=== PATIENT | female | born 1940 | race Caucasian/White ===

== ENCOUNTER → 2017-08-07 | Outpatient (CLI) | payer MEDICARE ==
[2017-08-07 14:36] LABS: Anisocytosis Moderate; Basophils # (A) 0.1 k/uL (0-0.2); Basophils % (A) 0 %; Eosinophils # (A) 0.1 k/uL (0-0.7); Eosinophils % (A) 1 %; HCT 35.1 % (34.0-46.0); HGB 10.3 gm/dL (11.4-16.0); Hypochromasia Marked; Lymphocytes # (A) 2.6 k/uL (1.0-4.8); Lymphocytes % (A) 22 %; MCH 22.2 pg (25.0-35.0); MCHC 29.4 g/dL (31.0-37.0); MCV 75.4 fL (80.0-100.0); Mean Platelet Volume 6.9; Microcytosis Marked; Monocytes # (A) 0.6 k/uL (0-1.0); Monocytes % (A) 5 %; Neutrophils # (A) 8.2 k/uL (1.3-7.7); Neutrophils % (A) 69 %; Platelet Count 406 k/uL (150-450); RBC 4.66 m/uL (3.80-5.40); RDW 22.5 % (11.5-15.5); WBC 11.9 k/uL (3.8-10.6)
[2017-08-07 20:53] LABS: Iron Saturation 4.82 (12.00-45.00)
== END ==
LOC: LABWHC1 14:11
PROVIDERS: ATTEND Internal Medicine
DX: D64.9 Anemia, unspecified (principal); R79.0 Abnormal level of blood mineral
CPT/HCPCS: 36415; 82728; 83540; 83550; 85025

== ENCOUNTER 2018-09-03 15:57 | Inpatient (IN) | payer MEDICARE, OTHER ==
[2018-09-03] MEDS ORDERED: ALBUTEROL NEBULIZED 2.5 MG/3 ML INHALATION STA (16:43)
[2018-09-03] MEDS ORDERED: IPRATROPIUM 0.5 MG/2.5 ML NEBU INHALATION STA (16:43)
[2018-09-03] MEDS ORDERED: methylPREDNISolone SOD SUCCI 125 MG/2 ML VIAL IV STA (16:43)
--- NOTE | 2018-09-03 16:45 | ED ---
General Adult HPI - General Stated complaint: [id number] Time Seen by Provider: 09/03/18 16:39 Source: patient, family, RN notes reviewed, old records reviewed - History of Present Illness Initial comments: 78-year-old female presenting with cough and dyspnea. Patient has history of COPD, she quit smoking 2 days ago. She is presenting with 1 week of worsening cough and dyspnea. She has been prescribed home oxygen but has not received her supple no oxygen yet. Denies central chest pain. She is had subjective fever and chills. Denies history of congestive heart failure. She does report bilateral lower extremity edema which is somewhat improved without specific treatment. Cough productive of white to yellow sputum - Related Data Home Medications Medication Instructions Recorded Confirmed Levothyroxine Sodium [Synthroid] 112 mcg PO DAILY 10/26/15 09/03/18 Omeprazole 20 mg PO DAILY 10/26/15 09/03/18 Simvastatin [Zocor] 20 mg PO HS 10/26/15 09/03/18 Albuterol Sulfate [Proair Hfa] 2 puff INHALATION RT-QID PRN 09/03/18 09/03/18 DULoxetine HCL [Cymbalta] 60 mg PO DAILY 09/03/18 09/03/18 Diltiazem HCl [Diltiazem ER] 120 mg PO DAILY 09/03/18 09/03/18 Furosemide [Lasix] 20 mg PO DAILY 09/03/18 09/03/18 INSULIN ASPART (NovoLOG) [NovoLOG 6 unit SQ AC-TID 09/03/18 09/03/18 (formulary)] Insulin Degludec [Tresiba] 38 units SQ QAM 09/03/18 09/03/18 Insulin Degludec [Tresiba] See Protocol SQ HS 09/03/18 09/03/18 Ipratropium-Albuterol Nebulize 3 ml INHALATION RT-QID PRN 09/03/18 09/03/18 [Duoneb 0.5 mg-3 mg/3 ml Soln] Pregabalin [Lyrica] 100 mg PO BID 09/03/18 09/03/18 Allergies Allergy/AdvReac Type Severity Reaction Status Date / Time No Known Allergies Allergy Verified 09/03/18 17:09 Review of Systems ROS Statement: Those systems with pertinent positive or pertinent negative responses have been documented in the HPI. ROS Other: All systems not noted in ROS Statement are negative. Past Medical History Past Medical History: Diabetes Mellitus, GERD/Reflux, Hyperlipidemia, Hypertension, Skin Disorder, Thyroid Disorder Additional Past Medical History / Comment(s): migraines, diarrhea, arthritis, itchy sores on back, History of Any Multi-Drug Resistant Organisms: None Reported Past Surgical History: Cholecystectomy, Joint Replacement, Tonsillectomy, Tubal Ligation Additional Past Surgical History / Comment(s): nik knee replacement, nik cataracts Past Anesthesia/Blood Transfusion Reactions: Motion Sickness Additional Past Anesthesia/Blood Transfusion Reaction / Comment(s): hard time waking up and SOB when waking up Smoking Status: Current every day smoker - Past Family History Mother Family Medical History: No Reported History General Exam General appearance: alert, in no apparent distress Head exam: Present: atraumatic, normocephalic Eye exam: Present: normal appearance, PERRL ENT exam: Present: mucous membranes dry Neck exam: Present: normal inspection. Absent: tenderness, meningismus Respiratory exam: Present: respiratory distress, wheezes, decreased breath sounds, prolonged expiratory Cardiovascular Exam: Present: regular rate, normal rhythm GI/Abdominal exam: Present: soft. Absent: distended, tenderness, guarding Extremities exam: Present: normal capillary refill, pedal edema Neurological exam: Present: alert, oriented X3, CN II-XII intact. Absent: motor sensory deficit Psychiatric exam: Present: normal affect, normal mood Skin exam: Present: warm, dry, intact. Absent: cyanosis, diaphoretic Course Vital Signs 09/03/18 09/03/18 09/03/18 16:30 16:52 17:07 Temperature 99.2 F Pulse Rate 94 89 92 Respiratory 22 Rate Blood Pressure 133/64 O2 Sat by Pulse 97 Oximetry 09/03/18 09/03/18 09/03/18 17:10 17:50 18:00 Temperature Pulse Rate 96 101 H 105 H Respiratory 22 24 10 L Rate Blood Pressure 130/64 132/80 132/80 O2 Sat by Pulse 96 95 95 Oximetry 09/03/18 09/03/18 09/03/18 18:10 18:20 18:30 Temperature Pulse Rate 101 H 101 H 98 Respiratory 7 L 6 L 25 H Rate Blood Pressure 151/68 151/68 132/67 O2 Sat by Pulse 96 93 L 93 L Oximetry 09/03/18 18:35 Temperature Pulse Rate 102 H Respiratory 22 Rate Blood Pressure 132/67 O2 Sat by Pulse 94 L Oximetry EKG Findings - EKG Comments: EKG Findings:: EKG: Normal sinus rhythm, rate of 92, PA interval 146, QRS duration 84, QTC 447, no ST segment elevation. Medical Decision Making - Medical Decision Making 78-year-old female presenting with worsening cough and dyspnea, history of COPD. No chest pain. Patient recently prescribed home oxygen but has not received her oxygen today. She has cough and subjective fever chills. Chest x-ray is concerning for pulmonary edema versus atypical pneumonia. Given the elevated white count of 21,000. She is started on antibiotics. She has normal CMP, neg ative troponin, negative BNP. After initial treatment available medical management status, she has minimal improvement. Will be admitted for treatment of COPD exacerbation. Case discussed with the admitting physician Dr. Bermudez, will place pulmonology on consult. - Lab Data Result diagrams: 09/03/18 17:30 09/03/18 17:30 Lab Results 09/03/18 09/03/18 09/03/18 Range/Units 17:30 17:30 17:30 WBC 21.2 H (3.8-10.6) k/uL RBC 4.71 (3.80-5.40) m/uL Hgb 12.1 (11.4-16.0) gm/dL Hct 38.3 (34.0-46.0) % MCV 81.3 (80.0-100.0) fL MCH 25.7 (25.0-35.0) pg MCHC 31.6 (31.0-37.0) g/dL RDW 13.7 (11.5-15.5) % Plt Count 399 (150-450) k/uL Neutrophils % 78 % Lymphocytes % 15 % Monocytes % 5 % Eosinophils % 0 % Basophils % 0 % Neutrophils # 16.5 H (1.3-7.7) k/uL Lymphocytes # 3.1 (1.0-4.8) k/uL Monocytes # 1.1 H (0-1.0) k/uL Eosinophils # 0.1 (0-0.7) k/uL Basophils # 0.0 (0-0.2) k/uL PT (9.0-12.0) sec INR (<1.2) APTT (22.0-30.0) sec Sodium 137 (137-145) mmol/L Potassium 4.2 (3.5-5.1) mmol/L Chloride 101 (98-107) mmol/L Carbon Dioxide 30 (22-30) mmol/L Anion Gap 6 mmol/L BUN 5 L (7-17) mg/dL Creatinine 0.34 L (0.52-1.04) mg/dL Est GFR (CKD-EPI)AfAm >90 (>60 ml/min/1.73 sqM) Est GFR (CKD-EPI)NonAf >90 (>60 ml/min/1.73 sqM) Glucose 118 H (74-99) mg/dL Calcium 9.7 (8.4-10.2) mg/dL Magnesium 1.9 (1.6-2.3) mg/dL Total Bilirubin 1.0 (0.2-1.3) mg/dL AST 16 (14-36) U/L ALT 9 (9-52) U/L Alkaline Phosphatase 114 (38-126) U/L Troponin I (0.000-0.034) ng/mL NT-Pro-B Natriuret Pep 212 pg/mL Total Protein 6.9 (6.3-8.2) g/dL Albumin 3.8 (3.5-5.0) g/dL 09/03/18 09/03/18 Range/Units 17:30 17:30 WBC (3.8-10.6) k/uL RBC (3.80-5.40) m/uL Hgb (11.4-16.0) gm/dL Hct (34.0-46.0) % MCV (80.0-100.0) fL MCH (25.0-35.0) pg MCHC (31.0-37.0) g/dL RDW (11.5-15.5) % Plt Count (150-450) k/uL Neutrophils % % Lymphocytes % % Monocytes % % Eosinophils % % Basophils % % Neutrophils # (1.3-7.7) k/uL Lymphocytes # (1.0-4.8) k/uL Monocytes # (0-1.0) k/uL Eosinophils # (0-0.7) k/uL Basophils # (0-0.2) k/uL PT 10.6 (9.0-12.0) sec INR 1.0 (<1.2) APTT 22.0 (22.0-30.0) sec Sodium (137-145) mmol/L Potassium (3.5-5.1) mmol/L Chloride (98-107) mmol/L Carbon Dioxide (22-30) mmol/L Anion Gap mmol/L BUN (7-17) mg/dL Creatinine (0.52-1.04) mg/dL Est GFR (CKD-EPI)AfAm (>60 ml/min/1.73 sqM) Est GFR (CKD-EPI)NonAf (>60 ml/min/1.73 sqM) Glucose (74-99) mg/dL Calcium (8.4-10.2) mg/dL Magnesium (1.6-2.3) mg/dL Total Bilirubin (0.2-1.3) mg/dL AST (14-36) U/L ALT (9-52) U/L Alkaline Phosphatase (38-126) U/L Troponin I <0.012 (0.000-0.034) ng/mL NT-Pro-B Natriuret Pep pg/mL Total Protein (6.3-8.2) g/dL Albumin (3.5-5.0) g/dL Disposition Clinical Impression: Acute exacerbation of chronic obstructive airways disease Disposition: ADMITTED IP TO THIS HOSP Condition: Stable Is patient prescribed a controlled substance at d/c from ED?: No Referrals: Kai Chen DO [Primary Care Provider] - 1-2 days Decision to Admit Reason: Admit from EC Decision Date: 09/03/18 Decision Time: 19:19
[2018-09-03 17:48] LABS: Basophils % (A) 0 %; Eosinophils # (A) 0.1 k/uL (0-0.7); Eosinophils % (A) 0 %; HCT 38.3 % (34.0-46.0); HGB 12.1 gm/dL (11.4-16.0); Lymphocytes # (A) 3.1 k/uL (1.0-4.8); Lymphocytes % (A) 15 %; MCH 25.7 pg (25.0-35.0); MCHC 31.6 g/dL (31.0-37.0); MCV 81.3 fL (80.0-100.0); Mean Platelet Volume 7.2; Monocytes # (A) 1.1 k/uL (0-1.0); Monocytes % (A) 5 %; Neutrophils # (A) 16.5 k/uL (1.3-7.7); Neutrophils % (A) 78 %; Platelet Count 399 k/uL (150-450); RBC 4.71 m/uL (3.80-5.40); RDW 13.7 % (11.5-15.5); WBC 21.2 k/uL (3.8-10.6)
[2018-09-03 17:57] LABS: ALT 9 U/L (9-52); AST 16 U/L (14-36); African American GFR (CKD) >90 (>60 ml/min/1.73 sqM); Albumin 3.8 g/dL (3.5-5.0); Alkaline Phosphatase 114 U/L (38-126); Anion Gap 6 mmol/L; Blood Urea Nitrogen 5 mg/dL (7-17); Calcium 9.7 mg/dL (8.4-10.2); Carbon Dioxide 30 mmol/L (22-30); Chloride 101 mmol/L (98-107); Glucose 118 mg/dL (74-99); Magnesium 1.9 mg/dL (1.6-2.3); Potassium 4.2 mmol/L (3.5-5.1); Sodium 137 mmol/L (137-145); Total Protein 6.9 g/dL (6.3-8.2)
[2018-09-03 18:01] LABS: Prothrombin Time 10.6 sec (9.0-12.0)
--- NOTE | 2018-09-03 18:24 | XR ---
EXAMINATION: XR chest 2V DATE AND TIME: 09/03/2018 5:57 PM CLINICAL INDICATION: PHH; difficulty breathing TECHNIQUE: Departmental protocol COMPARISON: None FINDINGS: The lungs show a mild silhouetting of the pulmonary vasculature symmetrically by a fine reticular pat tern of increased density. No focal pulmonary findings. The pleural spaces are negative. The cardiac silhouette is moderately enlarged. The remainder of the mediastinal silhouette is unremar kable. The skeletal structures and soft tissues are negative for acute findings. IMPRESSION: Mild interstitial phase cardiogenic pulmonary edema radiographic pattern.
[2018-09-03] MEDS ORDERED: cefTRIAXone IN SWFI 1,000 MG/10 ML SYRINGE IVP STA (19:12)
[2018-09-03] MEDS ORDERED: AZITHROMYCIN 500 MG in SODIUM CHLORIDE 0.9% 250 ML IVPB STA (19:12)
[2018-09-03] MEDS ORDERED: IPRATROPIUM-ALBUTEROL 3 ML NEB INHALATION PRN (19:15)
[2018-09-03] MEDS: IPRATROPIUM-ALBUTEROL 3 ML NEB INHALATION SCH (20:04)
[2018-09-04] MEDS ORDERED: INSULIN ASPART (NovoLOG) 100 UNIT/ML VIAL SQ ONE (00:25)
--- NOTE | 2018-09-04 00:38 | P.HPIM ---
History of Present Illness H&P Date: 09/03/18 Chief Complaint: Shortness of breath, coughing 78-year-old female with history of COPD, diabetes, hypertension Patient presents to the hospital with 2 day history of worsening shortness of breath even at rest associated with wheezing and productive cough of yellowish sputum. With subjective fevers and chills. 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 She also reports some runny nose but denies any sore throat or muscle aches. She has albuterol inhaler and nebulizer that she was not getting much benefit from using them these past 2 days for which she decided to come the hospital for further care she denies any associated chest pain. She denies any recent hospitalization for COPD. She denies any history of intubation for COPD. She denies being on any steroids. Patient otherwise denies any nausea vomiting dizziness lightheadedness focal neuro deficits abdominal pain changes in her bowel or urinary habits denies any GI bleeding. Patient denies any orthopnea or paroxysmal nocturnal dyspnea. She reports some occasional leg swelling for which she takes when necessary Lasix In the ED chest x-ray showed some mild increased vasculature along with obliteration of the left cardiac and diaphragm silhouette but otherwise reports read is nonfocal. She had elevated white count, tachycardia but no fevers. Patient received breathing treatments in the ED without much improvement, patient was admitted for further treatment of COPD exacerbation with possible underlying pneumonia. Patient lives with her grandson daughter, she does not drive, she ambulates freely without any assistive device. Review of Systems Pertinent positives as noted in HPI. All other systems were reviewed and are negative Past Medical History Past Medical History: Diabetes Mellitus, GERD/Reflux, Hyperlipidemia, Hypertension, Skin Disorder, Thyroid Disorder Additional Past Medical History / Comment(s): migraines, arthritis, itchy sores on back, History of Any Multi-Drug Resistant Organisms: None Reported Past Surgical History: Cholecystectomy, Joint Replacement, Tonsillectomy, Tubal Ligation Additional Past Surgical History / Comment(s): nik knee replacement, nik cataracts Past Anesthesia/Blood Transfusion Reactions: Motion Sickness Additional Past Anesthesia/Blood Transfusion Reaction / Comment(s): hard time waking up and SOB when waking up Smoking Status: Current every day smoker - Past Family History Mother Family Medical History: No Reported History Medications and Allergies Home Medications Medication Instructions Recorded Confirmed Type Levothyroxine Sodium [Synthroid] 112 mcg PO DAILY 10/26/15 09/03/18 History Omeprazole 20 mg PO DAILY 10/26/15 09/03/18 History Simvastatin [Zocor] 20 mg PO HS 10/26/15 09/03/18 History Albuterol Sulfate [Proair Hfa] 2 puff INHALATION RT-QID PRN 09/03/18 09/03/18 History DULoxetine HCL [Cymbalta] 60 mg PO DAILY 09/03/18 09/03/18 History Diltiazem HCl [Diltiazem ER] 120 mg PO DAILY 09/03/18 09/03/18 History Furosemide [Lasix] 20 mg PO DAILY 09/03/18 09/03/18 History INSULIN ASPART (NovoLOG) [NovoLOG 6 unit SQ AC-TID 09/03/18 09/03/18 History (formulary)] Insulin Degludec [Tresiba] 38 units SQ QAM 09/03/18 09/03/18 History Insulin Degludec [Tresiba] See Protocol SQ HS 09/03/18 09/03/18 History Ipratropium-Albuterol Nebulize 3 ml INHALATION RT-QID PRN 09/03/18 09/03/18 History [Duoneb 0.5 mg-3 mg/3 ml Soln] Pregabalin [Lyrica] 100 mg PO BID 09/03/18 09/03/18 History Allergies Allergy/AdvReac Type Severity Reaction Status Date / Time No Known Allergies Allergy Verified 09/03/18 17:09 Physical Exam Vitals: Vital Signs Temp Pulse Resp BP Pulse Ox 09/03/18 20:16 90 L 09/03/18 20:15 100 09/03/18 20:06 98 09/03/18 20:04 99.3 F 96 20 141/82 94 L 09/03/18 18:35 102 H 22 132/67 94 L 09/03/18 18:30 98 25 H 132/67 93 L 09/03/18 18:20 101 H 6 L 151/68 93 L 09/03/18 18:10 101 H 7 L 151/68 96 09/03/18 18:00 105 H 10 L 132/80 95 09/03/18 17:50 101 H 24 132/80 95 09/03/18 17:10 96 22 130/64 96 09/03/18 17:07 92 09/03/18 16:52 89 09/03/18 16:30 99.2 F 94 22 133/64 97 Intake and Output 09/03/18 09/03/18 09/04/18 14:59 22:59 06:59 Other: Weight 99.79 kg Constitutional: No acute distress, conversant, pleasant, on oxygen through nasal cannula Eyes: Anicteric sclerae, moist conjunctiva, no lid-lag Pupils equal round reactive to light ENMT: NC/AT Oropharynx clear, no erythema, or exudates Neck: Supple, FROM, no masses, or JVD No carotid bruits No thyromegaly Lungs: Prolonged expiratory phase with diffuse expiratory wheezes, and end expiratory rhonchi Clear to percussion Normal respiratory effort, no accessory muscle use Cardiovascular: Heart regular in rate and rhythm, No murmurs, gallops, or rubs No peripheral edema Abdominal: Soft Nontender, no guarding, rebound or rigidity Abdomen moving with respiration Normoactive bowel sounds No hepatomegaly, No splenomegaly No palpable mass No abdominal wall hernia noted Skin: Normal temperature, tone, texture, turgor No induration No subcutaneous nodules No rash, lesions No ulcers Extremities: No digital cyanosis No clubbing Pedal pulses intact and symmetrical Radial pulses intact and symmetrical No calf tenderness Psychiatric: Alert and oriented to person, place and time Appropriate affect fair judgment Neuro Muscles Strength 4/5 in all 4 extremities Sensation to light touch grossly present throughout Cranial nerves II-XII grossly intact No focal sensory deficits Lymphatics: no palpable cervical or supraclavicular , or inguinal lymph nodes Results CBC & Chem 7: 09/03/18 17:30 09/03/18 17:30 Labs: Abnormal Lab Results - Last 24 Hours (Table) 09/03/18 09/03/18 Range/Units 17:30 17:30 WBC 21.2 H (3.8-10.6) k/uL Neutrophils # 16.5 H (1.3-7.7) k/uL Monocytes # 1.1 H (0-1.0) k/uL BUN 5 L (7-17) mg/dL Creatinine 0.34 L (0.52-1.04) mg/dL Glucose 118 H (74-99) mg/dL Assessment and Plan Assessment: 78-year-old female with history of COPD, active smoking, hypothyroid, diabetes. Patient admitted as an inpatient with anticipated length of stay more than 48 hours due to acute COPD exacerbation did not respond to initial therapy in the ED, with possible underlying pneumonia Plan: Acute COPD exacerbation with possible underlying pneumonia Patient started on COPD pathway DuoNeb's Systemic IV steroids Rocephin and azithromycin Follow-up cultures Chronic conditions Hypertension continue home meds Diabetes continue with insulin Hypothyroid continue levothyroxine Peripheral neuropathy continue alert, Hyperlipidemia continue statin Tobacco smoking Patient quit 2 days ago, currently declined to replacement therapy DVT prophylaxis heparin subcu 3 times a day Surrogate decision-maker: Son and granddaughter CODE STATUS: No code Discussed with: Patient, ER, RN Anticipated discharge: 48-[address]: Home A total of 60 minutes was spent on the care of this complex patient more than 50% of the time was spent in counseling and care coordination.
[2018-09-04] MEDS: methylPREDNISolone SOD SUCCI 125 MG/2 ML VIAL IV SCH ×5 (01:15→23:14)
[2018-09-04 04:12] VITALS: BMI 40.2
[2018-09-04] MEDS: LEVOTHYROXINE 112 MCG TAB PO SCH (06:51)
[2018-09-04] MEDS: IPRATROPIUM-ALBUTEROL 3 ML NEB INHALATION SCH ×4 (07:17→19:41)
[2018-09-04 07:20] LABS: Glucose,Whole Blood 245 mg/dL (75-99)
[2018-09-04] MEDS: HEPARIN SODIUM,PORCINE 5,000 UNIT/ML 1 ML VIAL SQ SCH ×3 (08:51→23:13)
[2018-09-04] MEDS: DULoxetine HCL 60 MG CAPSULE.DR PO SCH (08:51)
[2018-09-04] MEDS: INSULIN ASPART (NovoLOG) 100 UNIT/ML VIAL SQ SCH ×4 (08:51→21:13)
[2018-09-04] MEDS: PREGABALIN 100 MG CAP PO SCH ×2 (08:52→20:03)
[2018-09-04] MEDS: PANTOPRAZOLE 40 MG TABLET PO SCH (08:52)
[2018-09-04] MEDS: AZITHROMYCIN 500 MG TAB PO SCH (08:53)
[2018-09-04] MEDS ORDERED: INSULIN DETEMIR (LEVEMIR) 100 UNIT/ML SYR SQ SCH (09:00)
[2018-09-04 10:38] LABS: Basophils % (A) 0 %; Eosinophils % (A) 0 %; HCT 40.5 % (34.0-46.0); HGB 12.3 gm/dL (11.4-16.0); Hypochromasia Slight; Lymphocytes # (A) 1.9 k/uL (1.0-4.8); Lymphocytes % (A) 12 %; MCH 25.3 pg (25.0-35.0); MCHC 30.5 g/dL (31.0-37.0); MCV 82.8 fL (80.0-100.0); Mean Platelet Volume 7.5; Monocytes # (A) 0.3 k/uL (0-1.0); Monocytes % (A) 2 %; Neutrophils # (A) 14.3 k/uL (1.3-7.7); Neutrophils % (A) 86 %; Platelet Count 442 k/uL (150-450); RBC 4.88 m/uL (3.80-5.40); RDW 13.9 % (11.5-15.5); WBC 16.7 k/uL (3.8-10.6)
[2018-09-04 10:55] LABS: ALT 14 U/L (9-52); AST 13 U/L (14-36); African American GFR (CKD) >90 (>60 ml/min/1.73 sqM); Albumin 3.6 g/dL (3.5-5.0); Alkaline Phosphatase 114 U/L (38-126); Anion Gap 9 mmol/L; Blood Urea Nitrogen 11 mg/dL (7-17); Calcium 9.8 mg/dL (8.4-10.2); Carbon Dioxide 29 mmol/L (22-30); Chloride 101 mmol/L (98-107); Glucose 299 mg/dL (74-99); Potassium 4.8 mmol/L (3.5-5.1); Sodium 139 mmol/L (137-145); Total Bilirubin 0.8 mg/dL (0.2-1.3); Total Protein 6.6 g/dL (6.3-8.2)
[2018-09-04 11:37] LABS: Glucose,Whole Blood 291 mg/dL (75-99)
[2018-09-04] MEDS: DILTIAZEM CD 120 MG CAP.ER.24H PO SCH (12:19)
--- NOTE | 2018-09-04 12:37 | P.CNPUL ---
History of Present Illness Consult date: 09/04/18 Reason for consult: dyspnea, cough, COPD Chief complaint: Shortness of breath History of present illness: This is a 78-year-old female who presented to emergency department complaining of shortness of breath and wheezing for the last few days. She states she does have a cough productive of yellow sputum. Her chest x-ray shows pulmonary edema. The patient did have a white blood cell count of 21 on admission. Her T -max is 99.3. She states she did have chills at home but no fevers. She denies any sick contacts. She states she doesn't really go anywhere or the house. She did get her pneumonia vaccine but did not get a flu vaccine. She does smoke one to one and half packs per day for 50 years. She does have a history of COPD. She states she uses pro-air 2-3 times per day as well as her nebulizer 3 times a day. She states that she lived in [place] she did follow with a lung doctor for it has not followed with a lung doctor since she moved to [place]. She used to wear oxygen at night but states since she moved from [place] she has been unable to get oxygen. She states her from mesothelioma. She used to work in a [employer] and was exposed to chemicals and does not know which ones. She does have seasonal and environmental ALLERGIES as well as sinus congestion. She has one cat and one dog in the home. Review of Systems All systems: negative Past Medical History Past Medical History: Diabetes Mellitus, GERD/Reflux, Hyperlipidemia, Hypertension, Skin Disorder, Thyroid Disorder Additional Past Medical History / Comment(s): migraines, arthritis, itchy sores on back, History of Any Multi-Drug Resistant Organisms: None Reported Past Surgical History: Cholecystectomy, Joint Replacement, Tonsillectomy, Tubal Ligation Additional Past Surgical History / Comment(s): nik knee replacement, nik cataracts Past Anesthesia/Blood Transfusion Reactions: Motion Sickness Additional Past Anesthesia/Blood Transfusion Reaction / Comment(s): hard time waking up and SOB when waking up Smoking Status: Current every day smoker - Past Family History Mother Family Medical History: No Reported History Medications and Allergies Home Medications Medication Instructions Recorded Confirmed Type Levothyroxine Sodium [Synthroid] 112 mcg PO DAILY 10/26/15 09/03/18 History Omeprazole 20 mg PO DAILY 10/26/15 09/03/18 History Simvastatin [Zocor] 20 mg PO HS 10/26/15 09/03/18 History Albuterol Sulfate [Proair Hfa] 2 puff INHALATION RT-QID PRN 09/03/18 09/03/18 History DULoxetine HCL [Cymbalta] 60 mg PO DAILY 09/03/18 09/03/18 History Diltiazem HCl [Diltiazem ER] 120 mg PO DAILY 09/03/18 09/03/18 History Furosemide [Lasix] 20 mg PO DAILY 09/03/18 09/03/18 History INSULIN ASPART (NovoLOG) [NovoLOG 6 unit SQ AC-TID 09/03/18 09/03/18 History (formulary)] Insulin Degludec [Tresiba] 38 units SQ QAM 09/03/18 09/03/18 History Insulin Degludec [Tresiba] See Protocol SQ HS 09/03/18 09/03/18 History Ipratropium-Albuterol Nebulize 3 ml INHALATION RT-QID PRN 09/03/18 09/03/18 History [Duoneb 0.5 mg-3 mg/3 ml Soln] Pregabalin [Lyrica] 100 mg PO BID 09/03/18 09/03/18 History Allergies Allergy/AdvReac Type Severity Reaction Status Date / Time No Known Allergies Allergy Verified 09/03/18 17:09 Physical Exam Osteopathic Statement: *. No significant issues noted on an osteopathic structural exam other than those noted in the History and Physical/Consult. Vitals: Vital Signs Temp Pulse Pulse Resp BP BP Pulse Ox 09/04/18 12:08 107 H 09/04/18 11:53 99 09/04/18 07:30 86 09/04/18 07:17 86 93 L 09/04/18 07:00 98 F 96 12 123/70 93 L 09/04/18 04:45 98 09/04/18 04:37 98 09/04/18 00:58 98.0 F 90 15 149/72 97 09/04/18 00:00 16 09/03/18 20:59 97.4 F L 100 22 134/74 09/03/18 20:16 90 L 09/03/18 20:15 100 09/03/18 20:06 98 09/03/18 20:04 99.3 F 96 20 141/82 94 L 09/03/18 18:35 102 H 22 132/67 94 L 09/03/18 18:30 98 25 H 132/67 93 L 09/03/18 18:20 101 H 6 L 151/68 93 L 09/03/18 18:10 101 H 7 L 151/68 96 09/03/18 18:00 105 H 10 L 132/80 95 09/03/18 17:50 101 H 24 132/80 95 09/03/18 17:10 96 22 130/64 96 09/03/18 17:07 92 09/03/18 16:52 89 09/03/18 16:30 99.2 F 94 22 133/64 97 Intake and Output 09/03/18 09/04/18 09/04/18 22:59 06:59 14:59 Other: Weight 99.79 kg Gen.: Patient is alert and oriented 3, no acute distress Cardiovascular: Regular rate and rhythm, S1/S2 Lungs: Diffuse bilateral expiratory wheezing with prolonged expiration Abdomen: Soft nontender nondistended positive bowel sounds Extremities: No edema Results - Laboratory Findings CBC and BMP: 09/04/18 09:36 09/04/18 09:36 PT/INR, D-dimer PT 10.6 sec (9.0-12.0) 09/03/18 17:30 INR 1.0 (<1.2) 09/03/18 17:30 Abnormal lab findings: Abnormal Labs 09/03/18 09/03/18 09/04/18 17:30 17:30 07:15 WBC 21.2 H MCHC Neutrophils # 16.5 H Monocytes # 1.1 H BUN 5 L Creatinine 0.34 L Glucose 118 H POC Glucose (mg/dL) 245 H AST 09/04/18 09/04/18 09/04/18 09:36 09:36 11:35 WBC 16.7 H MCHC 30.5 L Neutrophils # 14.3 H Monocytes # BUN Creatinine 0.46 L Glucose 299 H POC Glucose (mg/dL) 291 H AST 13 L - Diagnostic Findings Chest x-ray: report reviewed, image reviewed Assessment and Plan Assessment: Acute on chronic hypoxic respiratory failure Acute exacerbation of COPD Tracheobronchitis Pulmonary edema on CXR, question CHF versus atypical pna Active tobacco abuse Hypothyroidism Diabetes mellitus type 2 Hypertension Peripheral neuropathy Dyslipidemia O2 to maintain saturation greater than or equal to 90% Pulmicort and Perforomist Mick gomez Singulair Steroid taper Incentive spirometry and pulmonary hygiene Sputum culture Antibiotics:Azithromycin and Rocephin Check A1AT, HP/allergy panel CT chest to be done Nocturnal oximetry on RA Echocardiogram Consult PT Consult case management for home O2 Overnight pulse ox on RA GI and DVT prophylaxis Outpatient pulmonary function test Smoking cessation is highly recommended, patient declining nicotine replacement at this time Thank you for this consultation we'll continue to follow along
--- NOTE | 2018-09-04 15:51 | CT ---
CT CHEST FOR PULMONARY EMBOLISM. EXAMINATION TYPE: CT angio chest DATE OF EXAM: 09/04/2018 INDICATION: PE CT DLP: 308.1 mGycm, Automated exposure control for dose reduction was used. CONTRAST: Patient injected with 100 mL of Isovue 370. COMPARISON: None TECHNIQUE: CT of the chest is performed on a spiral scan at 2 mm thick sections. Study is performed with intravenous contrast timed for evaluation for pulmonary embolism. This will limit additional po rtions of the evaluation. 3-D MIP images reconstructed by the technologist are reviewed on the compu ter in the coronal and sagittal planes. FINDINGS: No persistent filling defects are evident to suggest an acute pulmonary embolism. No mediastinal or hilar adenopathy enlarged by CT criteria is evident. The ascending aorta diameter at the level of the main pulmonary artery is 3.3 cm. The main pulmonary artery diameter at the bifur cation is 2.1 cm. Some minimal opacities at the posterior lateral right lung base may be some atelectasis. Limited CT section through the upper abdomen are unremarkable. IMPRESSIONS: 1. No acute pulmonary embolism.
[2018-09-04 17:16] LABS: Glucose,Whole Blood 267 mg/dL (75-99)
[2018-09-04 19:10] LABS: Immunoglobulin E 7.13 IU/mL (0.00-114.00)
[2018-09-04] MEDS: FORMOTEROL FUMARATE 20 MCG/2 ML NEBU INHALATION SCH (19:42)
[2018-09-04] MEDS: BUDESONIDE 0.5 MG/2 ML NEBU INHALATION SCH (19:42)
[2018-09-04] MEDS: guaiFENesin 600 MG TABLET.ER PO SCH (20:03)
[2018-09-04 20:14] LABS: Glucose,Whole Blood 292 mg/dL (75-99)
--- NOTE | 2018-09-04 20:23 | P.PN ---
Subjective Progress Note Date: 09/04/18 (delayed charting seen at 1400) Principal diagnosis: shortness of breath Patient is a 78-year-old female with a past medical history of COPD, diabetes, hypertension, dyslipidemia, and tobacco abuse who presented to the ER with complaints of cough and sputum. In the ER she underwent an extensive evaluation. On arrival her vital signs are found within normal limits. Laboratory analysis revealed an elevated white blood cell count at 21.2, but was otherwise unremarkable. Chest x-ray showed mild interstitial phase pulmonary edema. Patient had been using her inhalers at home without much relief. She was given steroids and bronchodilators, and antibiotics in the ER. She was admitted for further monitoring. Pulmonary was consulted who recommended CT of the chest, alpha-1 antitrypsin level, as well and hypersensitivity/ALLERGY panel. She was continued on Rocephin and Zithromax. Patient seen and examined at bedside. She reports her breathing is somewhat b alvarado than yesterday. Still continues to have productive cough. Still wheezing. States she does not need nicotine replacement and she is determined to quit. Denies any nausea, vomiting, or diarrhea. States she has not seen a mixer slagman here, but was seen one in [place]. Objective - Vital Signs Vital signs: Vital Signs Temp 98 F 09/04/18 15:00 Pulse 108 H 09/04/18 19:59 Resp 12 09/04/18 16:00 BP 138/73 09/04/18 15:00 Pulse Ox 98 09/04/18 15:00 Intake & Output 09/04/18 09/04/18 09/05/18 06:59 18:59 06:59 Weight 99.79 kg Other: # Voids 2 - Exam General: non toxic, no distress, appears at stated age, obese Derm: warm, dry Head: atraumatic, normocephalic, symmetric Eyes: EOMI, no lid lag, anicteric sclera Mouth: no lip lesion, mucus membranes moist Cardiovascular: S1S2 reg, no murmur, positive posterior tibial pulse bilateral, Lungs: Diffuse rhonchi bilaterally, no accessory muscle use Abdominal: soft, nontender to palpation, no guarding, no appreciable organomegaly Ext: no gross muscle atrophy, no edema, no contractures Neuro: CN II-XI grossly intact, no focal neuro deficits Psych: Alert, oriented, appropriate affect - Labs CBC & Chem 7: 09/04/18 09:36 09/04/18 09:36 Labs: Abnormal Lab Results - Last 24 Hours (Table) 09/04/18 09/04/18 09/04/18 Range/Units 07:15 09:36 09:36 WBC 16.7 H (3.8-10.6) k/uL MCHC 30.5 L (31.0-37.0) g/dL Neutrophils # 14.3 H (1.3-7.7) k/uL Creatinine 0.46 L (0.52-1.04) mg/dL Glucose 299 H (74-99) mg/dL POC Glucose (mg/dL) 245 H (75-99) mg/dL AST 13 L (14-36) U/L 09/04/18 09/04/18 Range/Units 11:35 17:15 WBC (3.8-10.6) k/uL MCHC (31.0-37.0) g/dL Neutrophils # (1.3-7.7) k/uL Creatinine (0.52-1.04) mg/dL Glucose (74-99) mg/dL POC Glucose (mg/dL) 291 H 267 H (75-99) mg/dL AST (14-36) U/L Microbiology - Last 24 Hours (Table) 09/03/18 17:35 Blood Culture - Preliminary Blood No Growth after 24 hours Assessment and Plan Assessment: Acute exacerbation of COPD with pneumonia -IV steroids, budesonid, fometerol - duonebs - pulm hygeine - Rocephin, zithromax - Pulm recs - Sputum culture -Mucinex DM 2, insulin requiring with hyperglycemia with peripheral neuropathy - SSI and fixed dose, basal increased to 42 units - follow BS - Await A1C -Lyrica Hypertension -controlled -Continue Cardizem Hypothyroidism -Continue levothyroxine Dyslipidemia -Statin Tobacco abuse -Quit smoking 3 days ago -Does not want nicotine replacement Morbid obesity with BMI 40.2 -Outpatient structured weight loss DVT prophylaxis: Heparin Discussed with: Patient Anticipated discharge: 24-[address]: home A total of 25 minutes was spent on the care of this complex patient more than 50% of the time was spent in counseling and care coordination.
[2018-09-04] MEDS ORDERED: MONTELUKAST 10 MG TAB PO SCH (21:00)
[2018-09-04] MEDS ORDERED: ATORVASTATIN 10 MG TAB PO SCH (21:00)
[2018-09-04 21:46] VITALS: RESP 14
[2018-09-04 22:33] LABS: Glucose,Whole Blood 277 mg/dL (75-99)
[2018-09-05] MEDS: LEVOTHYROXINE 112 MCG TAB PO SCH (05:42)
[2018-09-05] MEDS: methylPREDNISolone SOD SUCCI 125 MG/2 ML VIAL IV SCH ×2 (05:42→13:30)
[2018-09-05 07:08] LABS: Glucose,Whole Blood 264 mg/dL (75-99)
[2018-09-05] MEDS: INSULIN ASPART (NovoLOG) 100 UNIT/ML VIAL SQ SCH ×4 (07:40→11:52)
[2018-09-05] MEDS: PREGABALIN 100 MG CAP PO SCH (07:41)
[2018-09-05] MEDS: AZITHROMYCIN 500 MG TAB PO SCH (07:41)
[2018-09-05] MEDS: DULoxetine HCL 60 MG CAPSULE.DR PO SCH (07:42)
[2018-09-05] MEDS: guaiFENesin 600 MG TABLET.ER PO SCH (07:42)
[2018-09-05] MEDS: PANTOPRAZOLE 40 MG TABLET PO SCH (07:42)
[2018-09-05] MEDS: HEPARIN SODIUM,PORCINE 5,000 UNIT/ML 1 ML VIAL SQ SCH (07:42)
[2018-09-05] MEDS: DILTIAZEM CD 120 MG CAP.ER.24H PO SCH (07:42)
[2018-09-05 07:55] VITALS: BP 123/75; TEMP 98.2
[2018-09-05] MEDS ORDERED: INSULIN DETEMIR (LEVEMIR) 100 UNIT/ML SYR SQ SCH (09:00)
[2018-09-05] MEDS: BUDESONIDE 0.5 MG/2 ML NEBU INHALATION SCH (09:26)
[2018-09-05] MEDS: FORMOTEROL FUMARATE 20 MCG/2 ML NEBU INHALATION SCH (09:26)
[2018-09-05] MEDS: IPRATROPIUM-ALBUTEROL 3 ML NEB INHALATION SCH ×2 (09:27→13:58)
[2018-09-05 09:56] VITALS: PULSE 76
[2018-09-05 11:36] LABS: Glucose,Whole Blood 139 mg/dL (75-99)
--- NOTE | 2018-09-05 13:46 | P.DS ---
Providers Date of admission: 09/03/18 19:15 Expected date of discharge: 09/05/18 Attending physician: Rama Schmidt MD Consults: 09/03/18 19:15 Consult Physician Routine Consulting Provider: Catarina Bowens Consult Reason/Comments: COPD Do you want consulting provider notified?: Yes Primary care physician: Kai Chen Hospital Course: Discharge Diagnosis: Acute exacerbation of COPD Community acquired pneumonia DM 2 insulin requiring, A1C pending on discharge HTN Hypothyroidism HLD Tobacco abuse Morbid obesity BMI 40.2 Hospital Course: Patient is a 78-year-old female with a past medical history of COPD, diabetes, hypertension, dyslipidemia, and tobacco abuse who presented to the ER with complaints of cough and sputum. In the ER she underwent an extensive evaluation. On arrival her vital signs are found within normal limits. Laboratory analysis revealed an elevated white blood cell count at 21.2, but was otherwise unremarkable. Chest x-ray showed mild interstitial phase pulmonary edema. Patient had been using her inhalers at home without much relief. She was given steroids and bronchodilators, and antibiotics in the ER. She was admitted for further monitoring. Pulmonary was consulted who recommended CT of the chest, alpha-1 antitrypsin level, as well and hypersensitivity/ALLERGY panel. She was continued on Rocephin and Zithromax. CT showed patchy infiltrate. Breathing was much improved from admission and patient requested discharge home. She was able to ambulate in the hallways without difficulty. She was 81% on room air and arrangement were made for home O2. She will start singulair and adviar at home. She will complete 5 days of zithromax, cefdinir, and prednisone. She will remain tobacco free. She will follow up with pulmonary in [address] Chen in 2-3 days. PENDING: A1C, allergy/HP pannel, alpha 1 antitrypsin level Patient seen and examined at bedside. Breathing much better, cough much better, no nausea, no vomiting. Feeling well and wants to go home. Vital signs reviewed and stable. General: non toxic, no distress, appears at stated age, Obese Derm: warm, dry Head: atraumatic, normocephalic, symmetric Eyes: EOMI, no lid lag, anicteric sclera Mouth: no lip lesion, mucus membranes moist Cardiovascular: S1S2 reg, no murmur, positive posterior tibial pulse bilateral, Lungs: rhonchi bilateral , no accessory muscle use Abdominal: soft, nontender to palpation, no guarding, no appreciable organomegaly Ext: no gross muscle atrophy, no edema, no contractures Neuro: CN II-XI grossly intact, no focal neuro deficits Psych: Alert, oriented, appropriate affect A total of 35 minutes of time were spent preparing this complex discharge summary . Pertinent Studies: CTA chest- no pulmonary embolism, patchy infiltrated CXR- interstitial phase pulm edema Patient Condition at Discharge: Stable Plan - Discharge Summary New Discharge Prescriptions: New Fluticasone/Salmeterol [Advair 500-50 Diskus] 1 inhalation PO BID #1 inhaler guaiFENesin [Mucinex] 1,200 mg PO Q12HR PRN tablet.er PRN Reason: Congestion Cefdinir [Omnicef] 300 mg PO Q12HR #6 capsule Montelukast [Singulair] 10 mg PO DAILY #30 tab Azithromycin [Zithromax] 500 mg PO DAILY #3 tab predniSONE 60 mg PO DAILY #15 tab Continue Levothyroxine Sodium [Synthroid] 112 mcg PO DAILY Omeprazole 20 mg PO DAILY Simvastatin [Zocor] 20 mg PO HS Insulin Degludec [Tresiba] See Protocol SQ HS Albuterol Sulfate [Proair Hfa] 2 puff INHALATION RT-QID PRN PRN Reason: Shortness Of Breath Pregabalin [Lyrica] 100 mg PO BID Insulin Degludec [Tresiba] 38 units SQ QAM Furosemide [Lasix] 20 mg PO DAILY Diltiazem HCl [Diltiazem 24Hr ER] 120 mg PO DAILY DULoxetine HCL [Cymbalta] 60 mg PO DAILY INSULIN ASPART (NovoLOG) [NovoLOG (formulary)] 6 unit SQ AC-TID Ipratropium-Albuterol Nebulize [Duoneb 0.5 mg-3 mg/3 ml Soln] 3 ml INHALATION RT-QID PRN #100 ampul.neb PRN Reason: Shortness Of Breath Discharge Medication List Levothyroxine Sodium [Synthroid] 112 mcg PO DAILY 10/26/15 [History] Omeprazole 20 mg PO DAILY 10/26/15 [History] Simvastatin [Zocor] 20 mg PO HS 10/26/15 [History] Albuterol Sulfate [Proair Hfa] 2 puff INHALATION RT-QID PRN 09/03/18 [History] DULoxetine HCL [Cymbalta] 60 mg PO DAILY 09/03/18 [History] Diltiazem HCl [Diltiazem 24Hr ER] 120 mg PO DAILY 09/03/18 [History] Furosemide [Lasix] 20 mg PO DAILY 09/03/18 [History] INSULIN ASPART (NovoLOG) [NovoLOG (formulary)] 6 unit SQ AC-TID 09/03/18 [History] Insulin Degludec [Tresiba] 38 units SQ QAM 09/03/18 [History] Insulin Degludec [Tresiba] See Protocol SQ HS 09/03/18 [History] Pregabalin [Lyrica] 100 mg PO BID 09/03/18 [History] Azithromycin [Zithromax] 500 mg PO DAILY #3 tab 09/05/18 [Rx] Cefdinir [Omnicef] 300 mg PO Q12HR #6 capsule 09/05/18 [Rx] Fluticasone/Salmeterol [Advair 500-50 Diskus] 1 inhalation PO BID #1 inhaler 09/05/18 [Rx] Ipratropium-Albuterol Nebulize [Duoneb 0.5 mg-3 mg/3 ml Soln] 3 ml INHALATION RT-QID PRN #100 ampul.neb 09/05/18 [Rx] Montelukast [Singulair] 10 mg PO DAILY #30 tab 09/05/18 [Rx] guaiFENesin [Mucinex] 1,200 mg PO Q12HR PRN tablet.er 09/05/18 [Rx] predniSONE 60 mg PO DAILY #15 tab 09/05/18 [Rx] Follow up Appointment(s)/Referral(s): Kai Chen DO [Primary Care Provider] - 1-2 days Catarina Bowens DO [Doctor of Osteopathic Medicine] - 1 Week [facility], [NON-STAFF] - As Needed Gus Vicnete [NON-STAFF] - As Needed (Hospital bed and oxygen ) Activity/Diet/Wound Care/Special Instructions: Carb consistent diet activity as tolerated Please resume your prior insulin regiment
--- NOTE | 2018-09-05 15:56 | P.PN ---
Subjective Progress Note Date: 09/05/18 09/05/2018: Patient seen and examined. Patient is sitting in the chair on 2 L nasal cannula. The patient states she is feeling markedly better today. Her wheezing and shortness of breath are improved. She's been able to ambulate around the room without shortness of breath. She denies fevers and chills. She is hoping to go home today and states that case management is arranging home oxygen for her. Objective - Vital Signs Vital signs: Vital Signs Temp 98.2 F 09/05/18 07:23 Pulse 104 H 09/05/18 09:28 Resp 14 09/05/18 07:40 BP 123/75 09/05/18 07:23 Pulse Ox 98 09/05/18 07:23 Intake & Output 09/04/18 09/05/18 09/05/18 18:59 06:59 18:59 Intake Total 640 360 Balance 640 360 Weight 99.79 kg Intake: Oral 640 360 Other: # Voids 2 2 - Exam Gen.: Patient is alert and oriented 3, no acute distress Cardiovascular: Regular rate and rhythm, S1/S2 Lungs: Diminished breath sounds with scattered expiratory wheezing Abdomen: Soft nontender nondistended positive bowel sounds Extremities: No edema - Labs CBC & Chem 7: 09/04/18 09:36 09/04/18 09:36 Labs: Abnormal Lab Results - Last 24 Hours (Table) 09/04/18 09/04/18 09/04/18 Range/Units 17:15 20:12 22:31 POC Glucose (mg/dL) 267 H 292 H 277 H (75-99) mg/dL 09/05/18 09/05/18 Range/Units 07:06 11:34 POC Glucose (mg/dL) 264 H 139 H (75-99) mg/dL Microbiology - Last 24 Hours (Table) 09/03/18 17:35 Blood Culture - Preliminary Blood No Growth after 24 hours Assessment and Plan Assessment: Acute on chronic hypoxic respiratory failure Acute exacerbation of COPD Tracheobronchitis Pulmonary edema on CXR, question CHF versus atypical pna Active tobacco abuse Hypothyroidism Diabetes mellitus type 2 Hypertension Peripheral neuropathy Dyslipidemia O2 to maintain saturation greater than or equal to 90% Pulmicort and Perforomist Duo nebs Singulair Steroid taper Incentive spirometry and pulmonary hygiene Sputum culture pending Antibiotics:Azithromycin and Rocephin Pending A1AT, HP/allergy panel CT chest reviewed with the patient Echocardiogram not done GI and DVT prophylaxis Outpatient pulmonary function test Smoking cessation is highly recommended, patient declining nicotine replacement at this time
[2018-09-05 17:23] LABS: Hemoglobin A1C 7.5 % (4.0-6.0)
[2018-09-06 15:24] LABS: Alpha 1 Anti-Trypsin 237 mg/dL (90 - 200)
--- NOTE | 2018-09-09 17:01 | CDI ---
Documentation Clarification Form Date: 09/09/2018 4:39:00 PM From: Misti Zee Phone: If you have a question regarding this query, please contact Maria Dolores Diaz at [phone] between 8am and 5pm. Admit Date: 09/03/2018 7:15:00 PM Patient Name: Ashley Juarez Visit Number: [id number] Discharge Date: 09/05/2018 3:15:00 PM ATTENTION: The Clinical Documentation Specialists (CDI) and [facility] Coding Staff appreciate your assistance in clarifying documentation. Please respond to the clarification below the line at the bottom and electronically sign. The CDI & [facility] Coding staff will review the response and follow-up if needed. Please note: Queries are made part of the Legal Health Record. If you have any questions, please contact the author of this message via ITS. Dr. Giana Burnham The patient presented with 2 day history of worsening shortness of breath even at rest associated with wheezing and productive cough of yellowish sputum. History/Risk Factors: COPD, has pneumonia on this admission, smoker and chronic respiratory failure. Tobacco use: Patient is a smoker. Home oxygen: Per ED note, she has been prescribed home oxygen but has not received it yet. Clinical Indicators: Shortness of breath, wheezing, Vital signs: T. 99.2, P. 94, R. 22, BP 133/64 Pulse oximetry: 97% on room air and dropped to 90% 4 hours later Lung/Breathing assessment: Prolonged expiratory phase with diffuse expiratory wheezes and end expiratory rhonchi. No accessory muscle use ABG/CBG: Not tested Treatment: Breathing tx: Duoneb, Pulmicort, Perforomist O2/Vent/BiPap 02 per nasal cannula: 2 lpm on 09/03, 3 lpm on 09/04 and 4 lpm on 09/05 Consult: Dr. Bowens documented acute on chronic hypoxic respiratory failure. In your professional opinion, can you please clarify if these findings signify one of the following conditions? Acute Respiratory Failure Ruled In Acute respiratory failure Ruled Out Other Diagnosis, please specify Unable to determine acute Respiratory failure MTDD
[2018-09-10 16:21] LABS: Alternaria Alternata IgG 4.1 mcg/mL (< 13.6); Aspergillus fumigatus IgG Not detected (Not detected); Aureobasidium pullulans IgG 11.3 mcg/mL (< 13.6); Cladosporium herbarium IgG 43.3 mcg/mL (< 14.7); Phoma ssp. IgG 7.1 mcg/mL (< 6.6); Saccaharomospora viridis Not detected (Not detected); Saccaharopoly. rectivirgula Not detected (Not detected)
== END 2018-09-05 15:15 | disposition home health service (06) | DRG 190 ==
LOC: EC 15:57 → 4SSUR 19:15
PROVIDERS: ADMIT Internal Medicine; ATTEND Internal Medicine
DX: J44.1 Chronic obstructive pulmonary disease with (acute) exacerbation (principal); J18.9 Pneumonia, unspecified organism; J96.21 Acute and chronic respiratory failure with hypoxia; Z68.41 Body mass index [BMI] 40.0-44.9, adult; J44.0 Chronic obstructive pulmonary disease with (acute) lower respiratory infection; E11.65 Type 2 diabetes mellitus with hyperglycemia; E11.42 Type 2 diabetes mellitus with diabetic polyneuropathy; E66.01 Morbid (severe) obesity due to excess calories; E78.5 Hyperlipidemia, unspecified; E03.9 Hypothyroidism, unspecified; F17.210 Nicotine dependence, cigarettes, uncomplicated; I10 Essential (primary) hypertension; K21.9 Gastro-esophageal reflux disease without esophagitis; G43.909 Migraine, unspecified, not intractable, without status migrainosus; J30.2 Other seasonal allergic rhinitis; R09.81 Nasal congestion; M19.90 Unspecified osteoarthritis, unspecified site; Z96.653 Presence of artificial knee joint, bilateral; Z79.4 Long term (current) use of insulin; Z79.890 Hormone replacement therapy; Z79.899 Other long term (current) drug therapy; Z90.49 Acquired absence of other specified parts of digestive tract; Z30.2 Encounter for sterilization; Z98.42 Cataract extraction status, left eye; Z98.41 Cataract extraction status, right eye; Z96.1 Presence of intraocular lens
CPT/HCPCS: 36415; 71046; 71275; 80053; 82103; 82104; 82785; 83036; 83735; 83880; 84484; 85025; 85610; 85730; 86001; 86606; 86609; 87040; 87070; 87205; 87324; 93005; 94640; 94760; 96365; 96375; 99285

== ENCOUNTER 2019-01-05 17:31 | Inpatient (IN) | payer MEDICARE, OTHER ==
[2019-01-05] MEDS ORDERED: IPRATROPIUM 0.5 MG/2.5 ML NEBU INHALATION STA (18:18)
[2019-01-05] MEDS ORDERED: ALBUTEROL NEBULIZED 2.5 MG/3 ML INHALATION STA (18:18)
[2019-01-05] MEDS ORDERED: methylPREDNISolone SOD SUCCI 125 MG/2 ML VIAL IV STA (18:18)
[2019-01-05 18:24] LABS: Glucose,Whole Blood 215 mg/dL (75-99)
[2019-01-05 18:28] LABS: Basophils # (A) 0.2 k/uL (0-0.2); Basophils % (A) 2 %; Eosinophils # (A) 0.3 k/uL (0-0.7); Eosinophils % (A) 3 %; HCT 37.5 % (34.0-46.0); HGB 12.1 gm/dL (11.4-16.0); Hypochromasia Slight; Lymphocytes # (A) 2.5 k/uL (1.0-4.8); Lymphocytes % (A) 25 %; MCHC 32.2 g/dL (31.0-37.0); MCV 80.9 fL (80.0-100.0); Mean Platelet Volume 7.6; Monocytes # (A) 0.5 k/uL (0-1.0); Monocytes % (A) 5 %; Neutrophils # (A) 6.3 k/uL (1.3-7.7); Neutrophils % (A) 63 %; Platelet Count 276 k/uL (150-450); RBC 4.63 m/uL (3.80-5.40); RDW 14.1 % (11.5-15.5); WBC 9.9 k/uL (3.8-10.6)
[2019-01-05 18:49] LABS: ALT 17 U/L (9-52); AST 27 U/L (14-36); African American GFR (CKD) >90 (>60 ml/min/1.73 sqM); Albumin 3.7 g/dL (3.5-5.0); Alkaline Phosphatase 97 U/L (38-126); Anion Gap 8 mmol/L; Blood Urea Nitrogen 7 mg/dL (7-17); Calcium 9.4 mg/dL (8.4-10.2); Carbon Dioxide 30 mmol/L (22-30); Chloride 101 mmol/L (98-107); Glucose 216 mg/dL (74-99); Magnesium 1.7 mg/dL (1.6-2.3); Sodium 139 mmol/L (137-145); Total Bilirubin 0.6 mg/dL (0.2-1.3); Total Protein 6.6 g/dL (6.3-8.2)
--- NOTE | 2019-01-05 18:53 | ED ---
SOB HPI - General Chief Complaint: Shortness of Breath Stated Complaint: LYNDSAY, DIARRHEA, HAS NOT BE ABLE TO TAKE MEDICATIONS Time Seen by Provider: 01/05/19 18:05 Source: patient Mode of arrival: wheelchair Limitations: no limitations - History of Present Illness Initial Comments: 78-year-old female patient with past medical history significant for oxygen dependent (2L NC) COPD, diabetes, and hypertension presents to the emergency department today for evaluation of shortness of breath. Patient states that she is having worsening shortness of breath over the last 2 days. Patient states she has been coughing. States she is coughing up clear sputum, denies hemoptysis. Patient does have some nasal congestion. Patient states that she is unable to do any physical activities are becoming extremely shortness of breath. States she could not walk less than a half block. Patient denies any chest pain or tightness. Denies any fevers but states she has been chilled. States she does have leg swelling but is not more than usual. Denies any known weight gain. Patient states that she quit smoking 4 days ago. Patient denies any recent rash, abdominal pain, nausea, vomiting, diarrhea, constipation, back pain, numbness, tingling, dizziness, hematuria, dysuria, urinary urgency, urinary frequency, headache, visual changes, or any other complaints. - Related Data Home Medications Medication Instructions Recorded Confirmed Levothyroxine Sodium [Synthroid] 112 mcg PO DAILY 10/26/15 09/03/18 Omeprazole 20 mg PO DAILY 10/26/15 09/03/18 Simvastatin [Zocor] 20 mg PO HS 10/26/15 09/03/18 Albuterol Sulfate [Proair Hfa] 2 puff INHALATION RT-QID PRN 09/03/18 09/03/18 DULoxetine HCL [Cymbalta] 60 mg PO DAILY 09/03/18 09/03/18 Diltiazem HCl [Diltiazem 24Hr ER] 120 mg PO DAILY 09/03/18 09/03/18 Furosemide [Lasix] 20 mg PO DAILY 09/03/18 09/03/18 INSULIN ASPART (NovoLOG) [NovoLOG 6 unit SQ AC-TID 09/03/18 09/03/18 (formulary)] Insulin Degludec [Tresiba] 38 units SQ QAM 09/03/18 09/03/18 Insulin Degludec [Tresiba] See Protocol SQ HS 09/03/18 09/03/18 Pregabalin [Lyrica] 100 mg PO BID 09/03/18 09/03/18 Previous Rx's Medication Instructions Recorded Azithromycin [Zithromax] 500 mg PO DAILY #3 tab 09/05/18 Cefdinir [Omnicef] 300 mg PO Q12HR #6 capsule 09/05/18 Fluticasone/Salmeterol [Advair 1 inhalation PO BID #1 inhaler 09/05/18 500-50 Diskus] Ipratropium-Albuterol Nebulize 3 ml INHALATION RT-QID PRN #100 09/05/18 [Duoneb 0.5 mg-3 mg/3 ml Soln] ampul.neb Montelukast [Singulair] 10 mg PO DAILY #30 tab 09/05/18 guaiFENesin [Mucinex] 1,200 mg PO Q12HR PRN tablet.er 09/05/18 predniSONE 60 mg PO DAILY #15 tab 09/05/18 Allergies Allergy/AdvReac Type Severity Reaction Status Date / Time No Known Allergies Allergy Verified 09/03/18 17:09 Review of Systems ROS Statement: Those systems with pertinent positive or pertinent negative responses have been documented in the HPI. ROS Other: All systems not noted in ROS Statement are negative. Past Medical History Past Medical History: Diabetes Mellitus, GERD/Reflux, Hyperlipidemia, Hypertension, Skin Disorder, Thyroid Disorder Additional Past Medical History / Comment(s): migraines, arthritis, itchy sores on back, History of Any Multi-Drug Resistant Organisms: None Reported Past Surgical History: Cholecystectomy, Joint Replacement, Tonsillectomy, Tubal Ligation Additional Past Surgical History / Comment(s): nik knee replacement, nik cataracts Past Anesthesia/Blood Transfusion Reactions: Motion Sickness Additional Past Anesthesia/Blood Transfusion Reaction / Comment(s): hard time waking up and SOB when waking up Past Psychological History: Depression Smoking Status: Current every day smoker - Past Family History Mother Family Medical History: No Reported History General Exam Limitations: no limitations General appearance: alert, in no apparent distress, other (This is a well- developed, well-nourished elderly female patient in no acute distress. Vital signs upon presentation are temperature 98.0F, pulse 103, respirations 22, pulse ox 95% on room air.) Eye exam: Present: normal appearance, PERRL, EOMI. Absent: scleral icterus, conjunctival injection, periorbital swelling ENT exam: Present: normal exam, normal oropharynx, mucous membranes moist Respiratory exam: Present: wheezes (Inspiratory and expiratory wheezing in all lung montoya.). Absent: normal lung sounds bilaterally, respiratory distress, rales, rhonchi, stridor Cardiovascular Exam: Present: regular rate, normal rhythm, normal heart sounds. Absent: systolic murmur, diastolic murmur, rubs, gallop, clicks GI/Abdominal exam: Present: soft, normal bowel sounds. Absent: distended, tenderness, guarding, rebound, rigid Neurological exam: Present: alert, oriented X3, CN II-XII intact Psychiatric exam: Present: normal affect, normal mood Skin exam: Present: warm, dry, intact, normal color. Absent: rash Course Vital Signs 01/05/19 01/05/19 01/05/19 17:53 18:09 18:11 Temperature 98.0 F Pulse Rate 103 H 99 Respiratory 22 24 Rate Blood Pressure O2 Sat by Pulse 95 86 L 95 Oximetry 01/05/19 01/05/19 01/05/19 18:31 18:51 19:05 Temperature Pulse Rate 94 92 101 H Respiratory 22 Rate Blood Pressure 141/68 O2 Sat by Pulse 96 Oximetry 01/05/19 01/05/19 01/05/19 19:52 20:49 21:01 Temperature 99.0 F Pulse Rate 112 H 104 H 99 Respiratory 24 16 16 Rate Blood Pressure 149/77 O2 Sat by Pulse 91 L Oximetry Medical Decision Making - Medical Decision Making 78-year-old female patient presents to the emergency department today for eval uation of worsening dyspnea over the last 2-3 days. Physical examination did reveal intrauterine expiratory wheezing in all posterior lung montoya. She was between 90 and 93% on 2 L he and nasal cannula. Other vitals were within normal range. Labs reviewed and revealed normal white blood cell count. Normal troponin. Patient did receive albuterol breathing treatment in the emergency department, she reported worsening symptoms. Decision was made to add d-dimer which was elevated at 1.33. CT angiography was obtained and did show evidence for a right lower lobe pulmonary embolism. We'll start high-dose heparin. She'll also be given breathing treatments and IV steroids for concurrent COPD exacerbation. We will consult pulmonology. She'll be admitted to [facility]. - Lab Data Result diagrams: 01/05/19 18:19 01/05/19 18:19 Lab Results 01/05/19 01/05/19 01/05/19 Range/Units 18:19 18:19 18:19 WBC (3.8-10.6) k/uL RBC (3.80-5.40) m/uL Hgb (11.4-16.0) gm/dL Hct (34.0-46.0) % MCV (80.0-100.0) fL MCH (25.0-35.0) pg MCHC (31.0-37.0) g/dL RDW (11.5-15.5) % Plt Count (150-450) k/uL Neutrophils % % Lymphocytes % % Monocytes % % Eosinophils % % Basophils % % Neutrophils # (1.3-7.7) k/uL Lymphocytes # (1.0-4.8) k/uL Monocytes # (0-1.0) k/uL Eosinophils # (0-0.7) k/uL Basophils # (0-0.2) k/uL Hypochromasia PT 10.0 (9.0-12.0) sec INR 0.9 (<1.2) APTT 20.6 L (22.0-30.0) sec D-Dimer (<0.60) mg/L FEU Sodium 139 (137-145) mmol/L Potassium 4.0 (3.5-5.1) mmol/L Chloride 101 (98-107) mmol/L Carbon Dioxide 30 (22-30) mmol/L Anion Gap 8 mmol/L BUN 7 (7-17) mg/dL Creatinine 0.52 (0.52-1.04) mg/dL Est GFR (CKD-EPI)AfAm >90 (>60 ml/min/1.73 sqM) Est GFR (CKD-EPI)NonAf >90 (>60 ml/min/1.73 sqM) Glucose 216 H (74-99) mg/dL POC Glucose (mg/dL) (75-99) mg/dL POC Glu Nanotechnology Engineering Technician ID Calcium 9.4 (8.4-10.2) mg/dL Magnesium 1.7 (1.6-2.3) mg/dL Total Bilirubin 0.6 (0.2-1.3) mg/dL AST 27 (14-36) U/L ALT 17 (9-52) U/L Alkaline Phosphatase 97 (38-126) U/L Troponin I <0.012 (0.000-0.034) ng/mL Total Protein 6.6 (6.3-8.2) g/dL Albumin 3.7 (3.5-5.0) g/dL 01/05/19 01/05/19 01/05/19 Range/Units 18:19 18:19 18:23 WBC 9.9 (3.8-10.6) k/uL RBC 4.63 (3.80-5.40) m/uL Hgb 12.1 (11.4-16.0) gm/dL Hct 37.5 (34.0-46.0) % MCV 80.9 (80.0-100.0) fL MCH 26.0 (25.0-35.0) pg MCHC 32.2 (31.0-37.0) g/dL RDW 14.1 (11.5-15.5) % Plt Count 276 (150-450) k/uL Neutrophils % 63 % Lymphocytes % 25 % Monocytes % 5 % Eosinophils % 3 % Basophils % 2 % Neutrophils # 6.3 (1.3-7.7) k/uL Lymphocytes # 2.5 (1.0-4.8) k/uL Monocytes # 0.5 (0-1.0) k/uL Eosinophils # 0.3 (0-0.7) k/uL Basophils # 0.2 (0-0.2) k/uL Hypochromasia Slight PT (9.0-12.0) sec INR (<1.2) APTT (22.0-30.0) sec D-Dimer 1.33 H (<0.60) mg/L FEU Sodium (137-145) mmol/L Potassium (3.5-5.1) mmol/L Chloride (98-107) mmol/L Carbon Dioxide (22-30) mmol/L Anion Gap mmol/L BUN (7-17) mg/dL Creatinine (0.52-1.04) mg/dL Est GFR (CKD-EPI)AfAm (>60 ml/min/1.73 sqM) Est GFR (CKD-EPI)NonAf (>60 ml/min/1.73 sqM) Glucose (74-99) mg/dL POC Glucose (mg/dL) 215 H (75-99) mg/dL POC Glu Nanotechnology Engineering Technician Ruby Brunson Calcium (8.4-10.2) mg/dL Magnesium (1.6-2.3) mg/dL Total Bilirubin (0.2-1.3) mg/dL AST (14-36) U/L ALT (9-52) U/L Alkaline Phosphatase (38-126) U/L Troponin I (0.000-0.034) ng/mL Total Protein (6.3-8.2) g/dL Albumin (3.5-5.0) g/dL - EKG Data -: EKG Interpreted by Mi EKG Comments: EKG obtained at 1841 shows normal sinus rhythm with a ventricular rate of 89, LA interval 162, QRS duration 86, QT 368, QTC 447. No evidence of ST elevation or depression. - Radiology Data Radiology results: report reviewed, image reviewed Two-view x-ray of the chest is obtained. Report was reviewed in its entirety. Impression by Dr. Padilla shows no active cardiopulmonary disease. Mild cardiomegaly. No change. CT chest angiography for pulmonary embolism was obtained. Report was reviewed in its entirety. Impression by Dr. Padilla shows evidence for acute pulmonary embolism in the right lower lobe pulmonary artery. This is a change compared to old exam. Disposition Clinical Impression: COPD exacerbation, Pulmonary embolism Disposition: ADMITTED IP TO THIS [facility] Condition: Serious Referrals: Kai Chen DO [Primary Care Provider] - 1-2 days Decision to Admit Reason: Admit from EC Decision Date: 01/05/19 Decision Time: 21:16
[2019-01-05 18:54] LABS: INR 0.9 (<1.2)
[2019-01-05 19:08] LABS: Partial Thromboplastin Time 20.6 sec (22.0-30.0)
--- NOTE | 2019-01-05 19:41 | XR ---
EXAMINATION TYPE: XR chest 2V DATE OF EXAM: 01/05/2019 COMPARISON: 09/03/2018 HISTORY: Cough TECHNIQUE: Frontal and lateral views of the chest are obtained. FINDINGS: There is no heart failure nor confluent pneumonic infiltrate. Costophrenic angles are cortney r. Heart is slightly enlarged. There is spurring in the thoracic spine. IMPRESSION: No active cardiopulmonary disease. Mild cardiomegaly. No change.
[2019-01-05] MEDS ORDERED: IPRATROPIUM-ALBUTEROL 3 ML NEB INHALATION STA (20:13)
[2019-01-05] MEDS ORDERED: guaiFENesin-DM 600/30MG 1 EACH TAB.ER.12H PO STA (20:14)
[2019-01-05] MEDS ORDERED: IPRATROPIUM-ALBUTEROL 3 ML NEB INHALATION PRN (20:14)
[2019-01-05] MEDS ORDERED: HEPARIN SODIUM,PORCINE 5,000 UNIT/ML 1 ML VIAL IV PRN (21:03)
[2019-01-05] MEDS ORDERED: HEPARIN SODIUM,PORCINE 10,000 UNIT/ML 1 ML VIAL IV ONE (21:03)
--- NOTE | 2019-01-05 21:04 | CT ---
EXAMINATION TYPE: CT chest angio for PE DATE OF EXAM: 01/05/2019 COMPARISON: 09/04/2018 HISTORY: Dyspnea CT DLP: 453.5 mGycm Automated exposure control for dose reduction was used. CONTRAST: CT Chest for pulmonary embolism performed with with IV Contrast, patient injected with 100 mL of Isov ue 370. There are 3-D post processed images. FINDINGS: There is subsegmental atelectasis at the lung bases. Heart is enlarged. There is no pleural effusion. There is no pericardial effusion. There is no mediastinal adenopathy. There are few peritracheal lym ph nodes that measure up to 1 cm. There are no hilar masses. There is a filling defect in the right lower lobe pulmonary artery in the lateral basal segment branc h. Thoracic aorta shows no aneurysm or dissection. There is intact thoracic aorta. There are spondylo tic changes in the thoracic spine. There is no compression fracture. IMPRESSION: There is evidence for acute pulmonary embolism in the right lower lobe pulmonary artery. This is a ch ad compared to old exam. The results of this exam were discussed with the patient's nurse in the emergency room at 9:00 PM.
[2019-01-05] MEDS ORDERED: HEPARIN SOD,PORK IN 0.45% NACL 25,000 UNIT in 0.45% NACL 1 250ML.BAG IV SCH (21:15)
[2019-01-06 00:09] LABS: Glucose,Whole Blood 270 mg/dL (75-99)
[2019-01-06] MEDS: methylPREDNISolone SOD SUCCI 125 MG/2 ML VIAL IV SCH ×3 (00:16→13:06)
[2019-01-06] MEDS: guaiFENesin 600 MG TABLET.ER PO SCH ×3 (00:16→20:46)
[2019-01-06] MEDS: INSULIN ASPART (NovoLOG) 100 UNIT/ML VIAL SQ SCH ×7 (00:16→20:47)
[2019-01-06 02:37] LABS: Glucose,Whole Blood 252 mg/dL (75-99)
[2019-01-06 03:13] LABS: Basophils % (A) 0 %; Eosinophils % (A) 0 %; HCT 35.5 % (34.0-46.0); HGB 11.5 gm/dL (11.4-16.0); Hypochromasia Slight; Lymphocytes # (A) 1.9 k/uL (1.0-4.8); Lymphocytes % (A) 19 %; MCH 25.7 pg (25.0-35.0); MCHC 32.5 g/dL (31.0-37.0); MCV 79.1 fL (80.0-100.0); Mean Platelet Volume 6.8; Monocytes # (A) 0.1 k/uL (0-1.0); Monocytes % (A) 1 %; Neutrophils % (A) 78 %; Platelet Count 291 k/uL (150-450); RBC 4.49 m/uL (3.80-5.40); RDW 13.5 % (11.5-15.5); WBC 10.2 k/uL (3.8-10.6)
[2019-01-06] MEDS: LEVOTHYROXINE 112 MCG TAB PO SCH (05:43)
[2019-01-06 07:17] LABS: Glucose,Whole Blood 254 mg/dL (75-99)
[2019-01-06] MEDS: DILTIAZEM CD 120 MG CAP.ER.24H PO SCH (07:38)
[2019-01-06] MEDS: PANTOPRAZOLE 40 MG TABLET PO SCH (07:38)
[2019-01-06] MEDS: DULoxetine HCL 60 MG CAPSULE.DR PO SCH (07:38)
[2019-01-06] MEDS: PREGABALIN 100 MG CAP PO SCH ×2 (07:38→20:46)
[2019-01-06] MEDS: IPRATROPIUM-ALBUTEROL 3 ML NEB INHALATION SCH ×4 (08:17→19:45)
[2019-01-06] MEDS: ACETAMINOPHEN TAB 325 MG TAB PO PRN ×2 (08:59→20:53)
[2019-01-06 11:21] LABS: Glucose,Whole Blood 293 mg/dL (75-99)
--- NOTE | 2019-01-06 12:58 | US ---
EXAMINATION TYPE: US venous doppler duplex LE DATE OF EXAM: 01/06/2019 12:11 PM COMPARISON: CT dated 01/05/2019 CLINICAL HISTORY: swelling. PE SIDE PERFORMED: Bilateral TECHNIQUE: The lower extremity deep venous system is examined utilizing real time linear array sonog obey with graded compression, doppler sonography and color-flow sonography. VESSELS IMAGED: External Iliac Vein (EIV) Common Femoral Vein Deep Femoral Vein Greater Saphenous Vein * Femoral Vein Popliteal Vein Small Saphenous Vein * Proximal Calf Veins (* superficial vessels) Right Leg: Appears positive for DVT in Femoral Vein. Limitations due to pitting edema. Left Leg: Negative for DVT IMPRESSION: 1. Positive acute deep venous thrombosis within the right femoral vein focally. The patient has a kno wn pulmonary embolism stated on the CT dated 01/05/2019 that was communicated with the ER on 01/05/2019 . 2. No sonographic evidence of deep venous thrombosis within the left lower extremity.
--- NOTE | 2019-01-06 13:03 | P.HPIM ---
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 Right lower lobe pulmonary artery. Patient was comparing of pain in the right leg in the right leg Doppler did show DVT as well. Patient was switched to Eliquis discontinue IV heparin patient is severely short of breath at this time requiring 3-4 L of oxygen. Patient is also on systemic steroids inhalational treatments. Patient denied any fever chills, patient is comparing of cough with the yellowish production. Patient denied any recent travel patient is 78 because of which patient is not undergoing any cancers in procedures patient denied any significant weight loss patient denied any recent surgery. Patient is not bedbound or wheelchair bound. Review of Systems REVIEW OF SYSTEMS: CONSTITUTIONAL: No fever, no malaise, no fatigue. HEENT: No recent visual problems or hearing problems. Denied any sore throat. CARDIOVASCULAR: No chest pain, orthopnea, PND, no palpitations, no syncope. PULMONARY: As mentioned in HPI GASTROINTESTINAL: No diarrhea, no nausea, no vomiting, no abdominal pain. NEUROLOGICAL: No headaches, no weakness, no numbness. HEMATOLOGICAL: Denies any bleeding or petechiae. GENITOURINARY: Denies any burning micturition, frequency, or urgency. MUSCULOSKELETAL/RHEUMATOLOGICAL: Denies any joint pain, swelling, or any muscle pain. ENDOCRINE: Denies any polyuria or polydipsia. The rest of the 14-point review of systems is negative. Past Medical History Past Medical History: Diabetes Mellitus, GERD/Reflux, Hyperlipidemia, Hypertension, Skin Disorder, Thyroid Disorder Additional Past Medical History / Comment(s): migraines, arthritis, itchy sores on back, History of Any Multi-Drug Resistant Organisms: None Reported Past Surgical History: Cholecystectomy, Joint Replacement, Tonsillectomy, Tubal Ligation Additional Past Surgical History / Comment(s): nik knee replacement, nik cataracts Past Anesthesia/Blood Transfusion Reactions: Motion Sickness Additional Past Anesthesia/Blood Transfusion Reaction / Comment(s): hard time waking up and SOB when waking up Past Psychological History: Depression Smoking Status: Former smoker Past Alcohol Use History: None Reported Additional Past Alcohol Use History / Comment(s): has smoked for 30-40 yrs, 1/2 - 1 PPD Past Drug Use History: None Reported - Past Family History Mother Family Medical History: No Reported History Medications and Allergies Home Medications Medication Instructions Recorded Confirmed Type Levothyroxine Sodium [Synthroid] 112 mcg PO DAILY 10/26/15 01/05/19 History Omeprazole 20 mg PO DAILY 10/26/15 01/05/19 History Simvastatin [Zocor] 20 mg PO HS 10/26/15 01/05/19 History Albuterol Sulfate [Proair Hfa] 2 puff INHALATION RT-QID PRN 09/03/18 01/05/19 History DULoxetine HCL [Cymbalta] 60 mg PO DAILY 09/03/18 01/05/19 History Diltiazem HCl [Diltiazem 24Hr ER] 120 mg PO DAILY 09/03/18 01/05/19 History Furosemide [Lasix] 20 mg PO DAILY 09/03/18 01/05/19 History Insulin Degludec [Tresiba] 18 units SQ HS 09/03/18 01/05/19 History Insulin Degludec [Tresiba] 38 units SQ QAM 09/03/18 01/05/19 History Pregabalin [Lyrica] 100 mg PO BID 09/03/18 01/05/19 History Albuterol Nebulized [Ventolin 2.5 mg INHALATION RT-TID 01/05/19 01/05/19 History Nebulized] Insulin Lispro [humaLOG Kwikpen] 6 unit SQ AC-TID 01/05/19 01/05/19 History Rivaroxaban [Xarelto Starter Pack] 1 each PO DIRECTED 30 Days #1 01/06/19 Rx tab Allergies Allergy/AdvReac Type Severity Reaction Status Date / Time No Known Allergies Allergy Verified 01/05/19 21:55 Physical Exam Vitals: Vital Signs Temp Pulse Pulse Resp BP BP Pulse Ox 01/06/19 12:34 100 01/06/19 12:24 100 01/06/19 11:44 98.2 F 106 H 18 100/56 94 L 01/06/19 08:29 104 H 01/06/19 08:17 104 H 01/06/19 04:44 98.3 F 96 24 129/73 95 01/06/19 00:00 110 H 18 01/05/19 23:17 18 01/05/19 23:00 98.3 F 110 H 18 178/82 93 L 01/05/19 22:00 97.9 F 107 H 20 147/84 93 L 01/05/19 21:01 99 16 01/05/19 21:00 104 H 18 154/88 94 L 01/05/19 20:49 104 H 16 01/05/19 19:52 99.0 F 112 H 24 149/77 91 L 01/05/19 19:05 101 H 22 141/68 96 01/05/19 18:51 92 01/05/19 18:31 94 01/05/19 18:11 95 01/05/19 18:09 99 24 86 L 01/05/19 17:53 98.0 F 103 H 22 95 Intake and Output 01/05/19 01/06/19 01/06/19 22:59 06:59 14:59 Intake Total 680 Output Total 250 Balance 430 Intake: Intake, IV Titration 90 Amount Heparin Sod,Pork in 0.45% 90 NaCl 25,000 unit In 0.45 % NaCl 1 250ml.bag @ 18 UNITS/KG/HR 15.105 mls/hr IV .[id number] COUNTS INCLUDE 234 BEDS AT THE [facility] Rx#: [id number] Oral 590 Output: Urine 250 Other: Voiding Method Bedside Commode # Voids 1 Weight 83.915 kg PHYSICAL EXAMINATION: GENERAL: The patient is alert and oriented x3, not in any acute distress. Well developed, well nourished. HEENT: Pupils are round and equally reacting to light. EOMI. No scleral icterus. No conjunctival pallor. Normocephalic, atraumatic. No pharyngeal erythema. No thyromegaly. CARDIOVASCULAR: S1 and S2 present. No murmurs, rubs, or gallops. PULMONARY: Significant expiratory wheezing ABDOMEN: Soft, nontender, nondistended, normoactive bowel sounds. No palpable organomegaly. MUSCULOSKELETAL: No joint swelling or deformity. EXTREMITIES: No cyanosis, clubbing, or pedal edema. NEUROLOGICAL: Gross neurological examination did not reveal any focal deficits. SKIN: No rashes. Results CBC & Chem 7: 01/06/19 02:59 01/05/19 18:19 Labs: Abnormal Lab Results - Last 24 Hours (Table) 01/05/19 01/05/19 01/05/19 Range/Units 18:19 18:19 18:19 MCV (80.0-100.0) fL Neutrophils # (1.3-7.7) k/uL APTT 20.6 L (22.0-30.0) sec D-Dimer 1.33 H (<0.60) mg/L FEU Glucose 216 H (74-99) mg/dL POC Glucose (mg/dL) (75-99) mg/dL 01/05/19 01/06/19 01/06/19 Range/Units 18:23 00:07 02:33 MCV (80.0-100.0) fL Neutrophils # (1.3-7.7) k/uL APTT (22.0-30.0) sec D-Dimer (<0.60) mg/L FEU Glucose (74-99) mg/dL POC Glucose (mg/dL) 215 H 270 H 252 H (75-99) mg/dL 01/06/19 01/06/19 01/06/19 Range/Units 02:59 03:04 07:16 MCV 79.1 L (80.0-100.0) fL Neutrophils # 8.0 H (1.3-7.7) k/uL APTT 52.8 H (22.0-30.0) sec D-Dimer (<0.60) mg/L FEU Glucose (74-99) mg/dL POC Glucose (mg/dL) 254 H (75-99) mg/dL 01/06/19 01/06/19 Range/Units 10:12 11:20 MCV (80.0-100.0) fL Neutrophils # (1.3-7.7) k/uL APTT 46.7 H (22.0-30.0) sec D-Dimer (<0.60) mg/L FEU Glucose (74-99) mg/dL POC Glucose (mg/dL) 293 H (75-99) mg/dL Thrombosis Risk Factor Assmnt - Choose All That Apply Any of the Below Risk Factors Present?: Yes Other Risk Factors: Yes Each Risk Factor Represents 3 Points: Age 75 years or older, Family history of DVT/PE, History of DVT/PE Thrombosis Risk Factor Assessment Total Risk Factor Score: 9 Thrombosis Risk Factor Assessment Level: High Risk Assessment and Plan Plan: -Acute on chronic hypercapnic respiratory failure seconded to COPD exacerbation can he was insistent steroids inhalational treatments -Acute hypoxic respiratory failure secondary to pulmonary embolism patient will be switched to Eliquis IV heparin will be discontinued prostrating factor for her right leg DVT and pulmonary embolism is unknown patient may need lifelong anticoagulation. -Chronic respiratory failure secondary to COPD -Type 2 diabetes mellitus patient blood sugars are expected to go because of systemic steroids will cut down the steroids to 40 twice a day patient will be resumed on her home regimen along with sliding scale insulin -Diuretic peripheral neuropathy -Depression -Hyperlipidemia -Past dysphagia reflux disease -Nicotine use: Counseling was provided
[2019-01-06] MEDS: DOXYCYCLINE 100 MG CAP PO SCH ×2 (13:06→20:46)
[2019-01-06] MEDS: APIXABAN 5 MG TAB PO SCH ×2 (13:32→20:46)
--- NOTE | 2019-01-06 16:53 | P.CNPUL ---
History of Present Illness Consult date: 01/06/19 Requesting physician: Sameera Reddy Reason for consult: dyspnea, pulmonary embolism Chief complaint: dyspnea, acute pulmonary embolism History of present illness: This is 78-year-old patient of Dr. Chen, with past medical history significant for COPD on home oxygen at 2 L, diabetes mellitus, hypertension, hyperlipidemia, hypothyroidism, current every day smoker, depression, presented to the hospital on 01/05/2019 with complaints of increasing shortness of breath. Patient states her symptoms started on Sunday, she reports chills, and feeling hot and cold, cough, with production of yellow sputum, but denied any chest pain, denied any hemoptysis, denied any chest wall tenderness, no nausea, vomiting, denies any weight gain, denies any headaches. Patient did report increased lower extremity swelling, though she reports some chronic swelling in lower extremities. Reports some nasal congestion. labs revealed normal white blood cell count, normal troponin, patient was very bronchospastic on admission, was given bronchodilator treatments in the emergency department, d-dimer was added which was elevated at 1.33, CT angios chest was obtained and showed evidence of a right lower lobe pulmonary embolism and patient has been started on heparin infusion. There was no mediastinal adenopathy, there were a few peritracheal lymph nodes up to 1 cm. patient was started on IV steroids, nebulized broncho-dilate his, and we were consulted for dyspnea related to acute COPD exacerbation and acute pulmonary embolus Review of Systems All systems: negative Constitutional: Denies chills, Denies fever Eyes: denies blurred vision, denies pain Ears, nose, mouth and throat: Denies headache, Denies sore throat Cardiovascular: Reports leg edema, Denies chest pain, Denies shortness of breath Respiratory: Reports cough, Reports cough with sputum, Reports dyspnea Gastrointestinal: Denies abdominal pain, Denies diarrhea, Denies nausea, Denies vomiting Genitourinary: Denies dysuria, Denies hematuria Musculoskeletal: Denies myalgias Integumentary: Denies pruritus, Denies rash Neurological: Denies numbness, Denies weakness Psychiatric: Denies anxiety, Denies depression Endocrine: Denies fatigue, Denies weight change Past Medical History Past Medical History: Diabetes Mellitus, GERD/Reflux, Hyperlipidemia, Hype rtension, Skin Disorder, Thyroid Disorder Additional Past Medical History / Comment(s): migraines, arthritis, itchy sores on back, History of Any Multi-Drug Resistant Organisms: None Reported Past Surgical History: Cholecystectomy, Joint Replacement, Tonsillectomy, Tubal Ligation Additional Past Surgical History / Comment(s): nik knee replacement, nik cataracts Past Anesthesia/Blood Transfusion Reactions: Motion Sickness Additional Past Anesthesia/Blood Transfusion Reaction / Comment(s): hard time waking up and SOB when waking up Past Psychological History: Depression Smoking Status: Former smoker Past Alcohol Use History: None Reported Additional Past Alcohol Use History / Comment(s): has smoked for 30-40 yrs, 1/2 - 1 PPD Past Drug Use History: None Reported - Past Family History Mother Family Medical History: No Reported History Medications and Allergies Home Medications Medication Instructions Recorded Confirmed Type Levothyroxine Sodium [Synthroid] 112 mcg PO DAILY 10/26/15 01/05/19 History Omeprazole 20 mg PO DAILY 10/26/15 01/05/19 History Simvastatin [Zocor] 20 mg PO HS 10/26/15 01/05/19 History Albuterol Sulfate [Proair Hfa] 2 puff INHALATION RT-QID PRN 09/03/18 01/05/19 History DULoxetine HCL [Cymbalta] 60 mg PO DAILY 09/03/18 01/05/19 History Diltiazem HCl [Diltiazem 24Hr ER] 120 mg PO DAILY 09/03/18 01/05/19 History Furosemide [Lasix] 20 mg PO DAILY 09/03/18 01/05/19 History Insulin Degludec [Tresiba] 18 units SQ HS 09/03/18 01/05/19 History Insulin Degludec [Tresiba] 38 units SQ QAM 09/03/18 01/05/19 History Pregabalin [Lyrica] 100 mg PO BID 09/03/18 01/05/19 History Albuterol Nebulized [Ventolin 2.5 mg INHALATION RT-TID 01/05/19 01/05/19 History Nebulized] Insulin Lispro [humaLOG Kwikpen] 6 unit SQ AC-TID 01/05/19 01/05/19 History Rivaroxaban [Xarelto Starter Pack] 1 each PO DIRECTED 30 Days #1 01/06/19 Rx tab Allergies Allergy/AdvReac Type Severity Reaction Status Date / Time No Known Allergies Allergy Verified 01/05/19 21:55 Physical Exam Vitals: Vital Signs Temp Pulse Pulse Resp BP BP Pulse Ox 01/06/19 12:34 100 01/06/19 12:24 100 01/06/19 11:44 98.2 F 106 H 18 100/56 94 L 01/06/19 08:29 104 H 01/06/19 08:17 104 H 01/06/19 04:44 98.3 F 96 24 129/73 95 01/06/19 00:00 110 H 18 01/05/19 23:17 18 01/05/19 23:00 98.3 F 110 H 18 178/82 93 L 01/05/19 22:00 97.9 F 107 H 20 147/84 93 L 01/05/19 21:01 99 16 01/05/19 21:00 104 H 18 154/88 94 L 01/05/19 20:49 104 H 16 01/05/19 19:52 99.0 F 112 H 24 149/77 91 L 01/05/19 19:05 101 H 22 141/68 96 01/05/19 18:51 92 01/05/19 18:31 94 01/05/19 18:11 95 01/05/19 18:09 99 24 86 L 01/05/19 17:53 98.0 F 103 H 22 95 Intake and Output 01/05/19 01/06/19 01/06/19 22:59 06:59 14:59 Intake Total 680 Output Total 250 Balance 430 Intake: Intake, IV Titration 90 Amount Heparin Sod,Pork in 0.45% 90 NaCl 25,000 unit In 0.45 % NaCl 1 250ml.bag @ 18 UNITS/KG/HR 15.105 mls/hr IV .[id number] [facility] Rx#: [id number] Oral 590 Output: Urine 250 Other: Voiding Method Bedside Commode # Voids 1 2 # Bowel Movements 1 Weight 83.915 kg GENERAL EXAM: Alert, active, comfortable in no apparent distress. HEAD: Normocephalic/atraumatic. EYES: Normal reaction of pupils, equal size. Conjunctiva pink, sclera white. NOSE: Clear with pink turbinates. THROAT: No erythema or exudates. NECK: No masses, no JVD, no thyroid enlargement, no adenopathy. CHEST: No chest wall deformity. Symmetrical expansion. LUNGS: Equal air entry with diffuse wheezes bilaterally CVS: Regular rate and rhythm, normal S1 and S2, no gallops, no murmurs, no rubs ABDOMEN: Soft, nontender. No hepatosplenomegaly, normal bowel sounds, no guarding or rigidity. EXTREMITIES: No clubbing, bilateral lower extremity edema, no cyanosis, 2+ pulses and upper and lower extremities. MUSCULOSKELETAL: Muscle strength and tone normal. SPINE: No scoliosis or deformity SKIN: No rashes CENTRAL NERVOUS SYSTEM: Alert and oriented -3. No focal deficits, tone is normal in all 4 extremities. PSYCHIATRIC: Alert and oriented -3. Appropriate affect. Intact judgment and insight. Results - Laboratory Findings CBC and BMP: 01/06/19 02:59 01/05/19 18:19 PT/INR, D-dimer PT 10.0 sec (9.0-12.0) 01/05/19 18: INR 0.9 (<1.2) 01/05/19 18:19 D-Dimer 1.33 mg/L FEU (<0.60) H 01/05/19 18:19 Abnormal lab findings: Abnormal Labs 01/05/19 01/05/19 01/05/19 18:19 18:19 18:19 MCV Neutrophils # APTT 20.6 L D-Dimer 1.33 H Glucose 216 H POC Glucose (mg/dL) 01/05/19 01/06/19 01/06/19 18:23 00:07 02:33 MCV Neutrophils # APTT D-Dimer Glucose POC Glucose (mg/dL) 215 H 270 H 252 H 01/06/19 01/06/19 01/06/19 02:59 03:04 07:16 MCV 79.1 L Neutrophils # 8.0 H APTT 52.8 H D-Dimer Glucose POC Glucose (mg/dL) 254 H 01/06/19 01/06/19 10:12 11:20 MCV Neutrophils # APTT 46.7 H D-Dimer Glucose POC Glucose (mg/dL) 293 H - Diagnostic Findings Chest x-ray: report reviewed, image reviewed CT scan - chest: report reviewed, image reviewed Additional studies: venous Doppler of bilateral lower extremities and reviewed, right leg appears positive for DVT in the femoral vein Assessment and Plan Plan: Assessment: #1. Acute exacerbation of chronic obstructive pulmonary disease #2. Acute pulmonary embolus and acute right femoral DVT, appears non-provoked #3. chronic obstructive pulmonary disease on home oxygen #4. Chronic and ongoing history of smoking #5. diabetes mellitus #6. Hypertension #7. Hyperlipidemia #8. GERD/reflux #9. Hypothyroidism Plan: Continue heparin infusion, we'll send a prescription to pharmacy for Xarelto to check for coverage. Lower extremity Dopplers revealed right femoral DVT, episode of acute PE and DVT seems to have been non-provoked. May need lifelong anticoagulation. We will add antibiotics for empiric coverage, continue with IV steroids and nebulized bronchodilators. Smoking cessation counseling was completed. We'll continue to follow I performed a history & physical examination of the patient and discussed their management with my nurse practitioner, Becky Garcia. I reviewed the nurse practitioner's note and agree with the documented findings and plan of care. Lung sounds are positive for diffuse wheezes throughout the lung montoya. The findings and the impression was discussed with the patient. I attest to the d ocumentation by the nurse practitioner. Time with Patient: Greater than 30
[2019-01-06 17:25] LABS: Glucose,Whole Blood 343 mg/dL (75-99)
[2019-01-06] MEDS: FORMOTEROL FUMARATE 20 MCG/2 ML NEBU INHALATION SCH (19:44)
[2019-01-06] MEDS: BUDESONIDE 1 MG/2 ML NEBU INHALATION SCH (19:44)
[2019-01-06 20:11] LABS: Glucose,Whole Blood 241 mg/dL (75-99)
[2019-01-06] MEDS: INSULIN DETEMIR (LEVEMIR) 100 UNIT/ML SYR SQ SCH (20:48)
[2019-01-06] MEDS: methylPREDNISolone SOD SUCCI 40 MG/ML 1 ML VIAL IV SCH (20:50)
[2019-01-07] MEDS: LEVOTHYROXINE 112 MCG TAB PO SCH (06:15)
[2019-01-07 06:55] LABS: Glucose,Whole Blood 291 mg/dL (75-99)
[2019-01-07] MEDS: BUDESONIDE 1 MG/2 ML NEBU INHALATION SCH ×2 (07:25→20:24)
[2019-01-07] MEDS: FORMOTEROL FUMARATE 20 MCG/2 ML NEBU INHALATION SCH ×2 (07:25→20:24)
[2019-01-07] MEDS: IPRATROPIUM-ALBUTEROL 3 ML NEB INHALATION SCH ×4 (07:25→20:24)
[2019-01-07 07:31] LABS: Basophils % (A) 0 %; Eosinophils % (A) 0 %; HCT 33.6 % (34.0-46.0); HGB 10.7 gm/dL (11.4-16.0); Hypochromasia Marked; Lymphocytes # (A) 2.1 k/uL (1.0-4.8); Lymphocytes % (A) 12 %; MCH 25.8 pg (25.0-35.0); MCHC 31.9 g/dL (31.0-37.0); MCV 80.9 fL (80.0-100.0); Mean Platelet Volume 6.8; Monocytes # (A) 0.7 k/uL (0-1.0); Monocytes % (A) 4 %; Neutrophils # (A) 14.4 k/uL (1.3-7.7); Neutrophils % (A) 83 %; Platelet Count 317 k/uL (150-450); RBC 4.15 m/uL (3.80-5.40); RDW 13.6 % (11.5-15.5); WBC 17.4 k/uL (3.8-10.6)
[2019-01-07] MEDS: INSULIN ASPART (NovoLOG) 100 UNIT/ML VIAL SQ SCH ×7 (07:53→22:07)
[2019-01-07] MEDS: INSULIN DETEMIR (LEVEMIR) 100 UNIT/ML SYR SQ SCH ×2 (07:54→22:07)
[2019-01-07] MEDS: DOXYCYCLINE 100 MG CAP PO SCH ×2 (07:57→22:05)
[2019-01-07] MEDS: ACETAMINOPHEN TAB 325 MG TAB PO PRN ×2 (07:57→22:06)
[2019-01-07] MEDS: APIXABAN 5 MG TAB PO SCH ×2 (07:57→22:04)
[2019-01-07] MEDS: methylPREDNISolone SOD SUCCI 40 MG/ML 1 ML VIAL IV SCH (07:58)
[2019-01-07] MEDS: guaiFENesin 600 MG TABLET.ER PO SCH ×2 (07:58→22:05)
[2019-01-07] MEDS: DILTIAZEM CD 120 MG CAP.ER.24H PO SCH (07:58)
[2019-01-07] MEDS: PANTOPRAZOLE 40 MG TABLET PO SCH (07:58)
[2019-01-07] MEDS: PREGABALIN 100 MG CAP PO SCH ×2 (07:58→22:05)
[2019-01-07] MEDS: DULoxetine HCL 60 MG CAPSULE.DR PO SCH (07:58)
[2019-01-07 11:55] LABS: Glucose,Whole Blood 294 mg/dL (75-99)
--- NOTE | 2019-01-07 12:40 | P.PN ---
Subjective Progress Note Date: 01/07/19 Principal diagnosis: Dyspnea, acute pulmonary embolism This is 78-year-old patient of Dr. Chen, with past medical history significant for COPD on home oxygen at 2 L, diabetes mellitus, hypertension, hyperlipidemia, hypothyroidism, current every day smoker, depression, presented to the hospital on 01/05/2019 with complaints of increasing shortness of breath. Patient states her symptoms started on Sunday, she reports chills, and feeling hot and cold, cough, with production of yellow sputum, but denied any chest pain, denied any hemoptysis, denied any chest wall tenderness, no nausea, vomiting, denies any weight gain, denies any headaches. Patient did report increased lower extremity swelling, though she reports some chronic swelling in lower extremities. Reports some nasal congestion. labs revealed normal white blood cell count, normal troponin, patient was very bronchospastic on admission, was given bronchodilator treatments in the emergency department, d-dimer was added which was elevated at 1.33, CT angios chest was obtained and showed evidence of a right lower lobe pulmonary embolism and patient has been started on heparin infusion. There was no mediastinal adenopathy, there were a few peritracheal lymph nodes up to 1 cm. patient was started on IV steroids, nebulized broncho-dilate his, and we were consulted for dyspnea related to acute COPD exacerbation and acute pulmonary embolus. The patient is seen today 01/07/2019 in follow-up on the regular medical floor. She is currently resting comfortably in bed. Awake and alert in no acute distress. Some dyspnea with exertion still. Maintaining O2 saturations in the mid 90s on 2 L/m per nasal cannula. She's afebrile. Slightly tachycardic. White count 17.4. Hemoglobin 10.7. She's been transitioned to Eliquis. On DuoNeb inhalations, Pulmicort and Perforomist inhalations, IV Solu-Medrol, empi mitra antibiotics in the form of Vibramycin. Objective - Vital Signs Vital signs: Vital Signs Temp 98.9 F 01/07/19 12:19 Pulse 105 H 01/07/19 12:19 Resp 18 01/07/19 12:19 BP 118/62 01/07/19 12:19 Pulse Ox 95 01/07/19 12:19 Intake & Output 01/06/19 01/07/19 01/07/19 18:59 06:59 18:59 Other: Voiding Method Bedside Commode Bedside Commode Bedside Commode # Voids 2 2 # Bowel Movements 1 - Exam GENERAL EXAM: Pleasant 78-year-old female patient. Alert, active, comfortable in no apparent distress. On 2 L nasal cannula. HEAD: Normocephalic/atraumatic. EYES: Normal reaction of pupils, equal size. Conjunctiva pink, sclera white. NOSE: Clear with pink turbinates. THROAT: No erythema or exudates. NECK: No masses, no JVD, no thyroid enlargement, no adenopathy. CHEST: No chest wall deformity. Symmetrical expansion. LUNGS: Equal air entry with expiratory wheezes bilaterally CVS: Regular rate and rhythm, normal S1 and S2, no gallops, no murmurs, no rubs ABDOMEN: Soft, nontender. No hepatosplenomegaly, normal bowel sounds, no guarding or rigidity. EXTREMITIES: No clubbing, bilateral lower extremity edema, no cyanosis, 2+ pulses and upper and lower extremities. MUSCULOSKELETAL: Muscle strength and tone normal. SPINE: No scoliosis or deformity SKIN: No rashes CENTRAL NERVOUS SYSTEM: No focal deficits, tone is normal in all 4 extremities. PSYCHIATRIC: Alert and oriented -3. Appropriate affect. Intact judgment and insight. - Labs CBC & Chem 7: 01/07/19 06:59 01/05/19 18:19 Labs: Abnormal Lab Results - Last 24 Hours (Table) 01/06/19 01/06/19 01/07/19 Range/Units 17:24 20:09 06:54 WBC (3.8-10.6) k/uL Hgb (11.4-16.0) gm/dL Hct (34.0-46.0) % Neutrophils # (1.3-7.7) k/uL POC Glucose (mg/dL) 343 H 241 H 291 H (75-99) mg/dL 01/07/19 01/07/19 Range/Units 06:59 11:54 WBC 17.4 H (3.8-10.6) k/uL Hgb 10.7 L (11.4-16.0) gm/dL Hct 33.6 L (34.0-46.0) % Neutrophils # 14.4 H (1.3-7.7) k/uL POC Glucose (mg/dL) 294 H (75-99) mg/dL Assessment and Plan Assessment: Assessment: #1. Acute exacerbation of chronic obstructive pulmonary disease #2. Acute pulmonary embolus and acute right femoral DVT, appears non-provoked #3. chronic obstructive pulmonary disease on home oxygen #4. Chronic and ongoing history of smoking #5. diabetes mellitus #6. Hypertension #7. Hyperlipidemia #8. GERD/reflux #9. Hypothyroidism Plan: The patient was seen and evaluated by Dr. Aaron. She is improved today as compared to yesterday. She's been converted to oral prednisone. Continued on DuoNeb's, Pulmicort and Perforomist, empiric Biaxin form of Vibramycin. She's been transitioned to Eliquis. She is again educated regarding the importance of complete smoking cessation. We'll continue to follow. I, the cosigning physician, performed a history & physical examination of the patient. Lungs sounds with bilateral end expiratory wheeze, diminished. Maintaining good O2 saturations in the 90s on 2 L/m per nasal cannula. I d iscussed the assessment and plan of care with my nurse practitioner, Lina Aldana. I attest to the above note as dictated by her.
--- NOTE | 2019-01-07 16:08 | P.PN ---
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 Right lower lobe pulmonary artery. Patient was comparing of pain in the right leg in the right leg Doppler did show DVT as well. Patient was switched to Eliquis discontinue IV heparin patient is severely short of breath at this time requiring 3-4 L of oxygen. Patient is also on systemic steroids inhalational treatments. Patient denied any fever chills, patient is comparing of cough with the yellowish production. Patient denied any recent travel patient is 78 because of which patient is not undergoing any cancers in procedures patient denied any significant weight loss patient denied any recent surgery. Patient is not bedbound or wheelchair bound. 01/07/2019 Patient is sitting up at the side of the bed in no acute distress. Patient st ates her breathing is much improved and not requiring any oxygen at this time. patient intermittently uses 2-3 L of oxygen. She states that she does have oxygen at home and only uses it as needed. Patient continues to have some bilateral wheezing noted on exam with some improvement today. IV steroids are being discontinued and transitioned over to oral steroids. Will continue to monitor closely. Patient is off the IV heparin drip and is currently on oral anticoagulation. Case management is following as she might be requiring placement or rehab upon discharge as the family has stated that she sits all day with no movement from her chair except for to go to the bathroom. Objective - Vital Signs Vital signs: Vital Signs Temp 98.9 F 01/07/19 12:19 Pulse 105 H 01/07/19 15:27 Resp 18 01/07/19 15:27 BP 118/62 01/07/19 12:19 Pulse Ox 95 01/07/19 12:19 Intake & Output 01/06/19 01/07/19 01/07/19 18:59 06:59 18:59 Intake Total 200 Balance 200 Intake: Blood Product 200 Other: Voiding Method Bedside Commode Bedside Commode Bedside Commode # Voids 2 2 # Bowel Movements 1 - Exam GENERAL: The patient is alert and oriented x3, not in any acute distress. Well developed, well nourished. HEENT: Pupils are round and equally reacting to light. EOMI. No scleral icterus. No conjunctival pallor. Normocephalic, atraumatic. No pharyngeal erythema. No thyromegaly. CARDIOVASCULAR: S1 and S2 present. No murmurs, rubs, or gallops. PULMONARY: Mild expiratory wheezing noted on exam which is improved from yesterday ABDOMEN: Soft, nontender, nondistended, normoactive bowel sounds. No palpable organomegaly. MUSCULOSKELETAL: No joint swelling or deformity. EXTREMITIES: No cyanosis, clubbing, or pedal edema. NEUROLOGICAL: Gross neurological examination did not reveal any focal deficits. SKIN: No rashes. - Labs CBC & Chem 7: 01/07/19 06:59 01/05/19 18:19 Labs: Abnormal Lab Results - Last 24 Hours (Table) 01/06/19 01/06/19 01/07/19 Range/Units 17:24 20:09 06:54 WBC (3.8-10.6) k/uL Hgb (11.4-16.0) gm/dL Hct (34.0-46.0) % Neutrophils # (1.3-7.7) k/uL POC Glucose (mg/dL) 343 H 241 H 291 H (75-99) mg/dL 01/07/19 01/07/19 Range/Units 06:59 11:54 WBC 17.4 H (3.8-10.6) k/uL Hgb 10.7 L (11.4-16.0) gm/dL Hct 33.6 L (34.0-46.0) % Neutrophils # 14.4 H (1.3-7.7) k/uL POC Glucose (mg/dL) 294 H (75-99) mg/dL Assessment and Plan Assessment: -Acute on chronic hypercapnic respiratory failure seconded to COPD exacerbation and she was started on systemic steroids and inhalational treatments -Acute hypoxic respiratory failure secondary to pulmonary embolism patient will be switched to Eliquis IV heparin will be discontinued prostrating factor for her right leg DVT and pulmonary embolism is unknown patient may need lifelong anticoagulation. -Chronic respiratory failure secondary to COPD -Type 2 diabetes mellitus patient blood sugars are expected to go because of systemic steroids will cut down the steroids to 40 twice a day patient will be resumed on her home regimen along with sliding scale insulin. Patient was switched to oral steroids for tomorrow morning. -Diuretic peripheral neuropathy -Depression -Hyperlipidemia -Gastroesophageal reflux disease -Nicotine use: Counseling was provided Recommendations and discussion: Recommend continue current medications, management, and symptomatic treatment. IV heparin was discontinued and patient is on oral anticoagulation. Patient will be switched to oral steroids in the morning. Will continue to monitor closely. Patient may require rehab or placement upon discharge per case management. Family states that the patient sits all day and does not get up at all except for to go to the bathroom. Otherwise discharge plan per patient is for her to return to her granddaughter's home where she resides. Guarded prognosis. Further recommendations to follow. Possible discharge in 24-48 hours.
[2019-01-07 16:51] LABS: Glucose,Whole Blood 348 mg/dL (75-99)
[2019-01-07 20:07] LABS: Glucose,Whole Blood 286 mg/dL (75-99)
[2019-01-07] MEDS ORDERED: ALPRAZolam 0.5 MG TAB PO STA (21:24)
[2019-01-07] MEDS: ATORVASTATIN 10 MG TAB PO SCH (22:05)
[2019-01-07] MEDS: guaiFENesin-DM 100-10MG/5ML 10 ML CUP PO PRN (22:06)
[2019-01-08] MEDS: LEVOTHYROXINE 112 MCG TAB PO SCH (05:59)
[2019-01-08] MEDS: guaiFENesin-DM 100-10MG/5ML 10 ML CUP PO PRN ×2 (06:00→20:38)
[2019-01-08] MEDS: guaiFENesin 600 MG TABLET.ER PO SCH ×2 (07:22→20:37)
[2019-01-08] MEDS: PREGABALIN 100 MG CAP PO SCH ×2 (07:23→20:38)
[2019-01-08] MEDS: DILTIAZEM CD 120 MG CAP.ER.24H PO SCH (07:23)
[2019-01-08] MEDS: DOXYCYCLINE 100 MG CAP PO SCH ×2 (07:23→20:37)
[2019-01-08] MEDS: APIXABAN 5 MG TAB PO SCH ×2 (07:23→20:36)
[2019-01-08] MEDS: DULoxetine HCL 60 MG CAPSULE.DR PO SCH (07:23)
[2019-01-08] MEDS: predniSONE 20 MG TAB PO SCH (07:23)
[2019-01-08] MEDS: PANTOPRAZOLE 40 MG TABLET PO SCH (07:23)
[2019-01-08] MEDS: INSULIN DETEMIR (LEVEMIR) 100 UNIT/ML SYR SQ SCH ×2 (07:23→20:39)
[2019-01-08] MEDS: INSULIN ASPART (NovoLOG) 100 UNIT/ML VIAL SQ SCH ×7 (07:24→20:39)
[2019-01-08 07:29] LABS: Glucose,Whole Blood 193 mg/dL (75-99)
[2019-01-08 08:16] LABS: Basophils % (A) 0 %; Eosinophils % (A) 0 %; HCT 35.6 % (34.0-46.0); HGB 11.3 gm/dL (11.4-16.0); Hypochromasia Marked; Lymphocytes # (A) 3.8 k/uL (1.0-4.8); Lymphocytes % (A) 22 %; MCHC 31.8 g/dL (31.0-37.0); MCV 81.8 fL (80.0-100.0); Mean Platelet Volume 6.4; Monocytes # (A) 1.1 k/uL (0-1.0); Monocytes % (A) 6 %; Neutrophils # (A) 11.9 k/uL (1.3-7.7); Neutrophils % (A) 69 %; Platelet Count 349 k/uL (150-450); RBC 4.36 m/uL (3.80-5.40); WBC 17.1 k/uL (3.8-10.6)
[2019-01-08] MEDS: BUDESONIDE 1 MG/2 ML NEBU INHALATION SCH ×2 (08:42→19:49)
[2019-01-08] MEDS: IPRATROPIUM-ALBUTEROL 3 ML NEB INHALATION SCH ×4 (08:42→19:49)
[2019-01-08] MEDS: FORMOTEROL FUMARATE 20 MCG/2 ML NEBU INHALATION SCH ×3 (08:42→19:52)
[2019-01-08 11:49] LABS: Glucose,Whole Blood 227 mg/dL (75-99)
--- NOTE | 2019-01-08 12:17 | P.PN ---
Subjective Progress Note Date: 01/08/19 Principal diagnosis: Dyspnea, acute pulmonary embolism This is 78-year-old patient of Dr. Chen, with past medical history significant for COPD on home oxygen at 2 L, diabetes mellitus, hypertension, hyperlipidemia, hypothyroidism, current every day smoker, depression, presented to the hospital on 01/05/2019 with complaints of increasing shortness of breath. Patient states her symptoms started on Sunday, she reports chills, and feeling hot and cold, cough, with production of yellow sputum, but denied any chest pain, denied any hemoptysis, denied any chest wall tenderness, no nausea, vomiting, denies any weight gain, denies any headaches. Patient did report increased lower extremity swelling, though she reports some chronic swelling in lower extremities. Reports some nasal congestion. labs revealed normal white blood cell count, normal troponin, patient was very bronchospastic on admission, was given bronchodilator treatments in the emergency department, d-dimer was added which was elevated at 1.33, CT angios chest was obtained and showed evidence of a right lower lobe pulmonary embolism and patient has been started on heparin infusion. There was no mediastinal adenopathy, there were a few peritracheal lymph nodes up to 1 cm. patient was started on IV steroids, nebulized broncho-dilate his, and we were consulted for dyspnea related to acute COPD exacerbation and acute pulmonary embolus. The patient is seen today 01/07/2019 in follow-up on the regular medical floor. She is currently resting comfortably in bed. Awake and alert in no acute distress. Some dyspnea with exertion still. Maintaining O2 saturations in the mid 90s on 2 L/m per nasal cannula. She's afebrile. Slightly tachycardic. White count 17.4. Hemoglobin 10.7. She's been transitioned to Eliquis. On DuoNeb inhalations, Pulmicort and Perforomist inhalations, IV Solu-Medrol, empi mitra antibiotics in the form of Vibramycin. The patient is seen today 01/08/2019 in follow-up on the regular medical floor. She is awake and alert in no acute distress. Breathing a bit easier today as compared to yesterday. She is afebrile. Maintaining O2 saturations in the 90s on 2 L/m per nasal cannula. White count 17.1. Hemoglobin 11.3. She remains on DuoNeb inhalations, Pulmicort and Perforomist inhalations, oral prednisone. Empiric antibiotics in the form of doxycycline. She is anticoagulated with Eliquis. Objective - Vital Signs Vital signs: Vital Signs Temp 97.9 F 01/08/19 05:00 Pulse 100 01/08/19 12:03 Resp 16 01/08/19 08:00 BP 117/66 01/08/19 05:00 Pulse Ox 96 01/08/19 05:00 Intake & Output 01/07/19 01/08/19 01/08/19 18:59 06:59 18:59 Intake Total 200 Balance 200 Intake: Blood Product 200 Other: Voiding Method Bedside Commode Bedside Commode Bedside Commode # Voids 1 - Exam GENERAL EXAM: Pleasant 78-year-old female patient. Alert, active, comfortable in no apparent distress. On 2 L nasal cannula. HEAD: Normocephalic/atraumatic. EYES: Normal reaction of pupils, equal size. Conjunctiva pink, sclera white. NOSE: Clear with pink turbinates. THROAT: No erythema or exudates. NECK: No masses, no JVD, no thyroid enlargement, no adenopathy. CHEST: No chest wall deformity. Symmetrical expansion. LUNGS: Equal air entry with expiratory wheezes bilaterally CVS: Regular rate and rhythm, normal S1 and S2, no gallops, no murmurs, no rubs ABDOMEN: Soft, nontender. No hepatosplenomegaly, normal bowel sounds, no guarding or rigidity. EXTREMITIES: No clubbing, bilateral lower extremity edema, no cyanosis, 2+ pulses and upper and lower extremities. MUSCULOSKELETAL: Muscle strength and tone normal. SPINE: No scoliosis or deformity SKIN: No rashes CENTRAL NERVOUS SYSTEM: No focal deficits, tone is normal in all 4 extremities. PSYCHIATRIC: Alert and oriented -3. Appropriate affect. Intact judgment and insight. - Labs CBC & Chem 7: 01/08/19 07:34 01/05/19 18:19 Labs: Abnormal Lab Results - Last 24 Hours (Table) 01/07/19 01/07/19 01/08/19 Range/Units 16:50 20:05 07:24 WBC (3.8-10.6) k/uL Hgb (11.4-16.0) gm/dL Neutrophils # (1.3-7.7) k/uL Monocytes # (0-1.0) k/uL POC Glucose (mg/dL) 348 H 286 H 193 H (75-99) mg/dL 01/08/19 01/08/19 Range/Units 07:34 11:31 WBC 17.1 H (3.8-10.6) k/uL Hgb 11.3 L (11.4-16.0) gm/dL Neutrophils # 11.9 H (1.3-7.7) k/uL Monocytes # 1.1 H (0-1.0) k/uL POC Glucose (mg/dL) 227 H (75-99) mg/dL Assessment and Plan Assessment: Assessment: #1. Acute exacerbation of chronic obstructive pulmonary disease #2. Acute pulmonary embolus and acute right femoral DVT, appears non-provoked #3. Chronic obstructive pulmonary disease on home oxygen #4. Chronic and ongoing history of smoking #5. Diabetes mellitus #6. Hypertension #7. Hyperlipidemia #8. GERD/reflux #9. Hypothyroidism Plan: The patient was seen and evaluated by Dr. Aaron. Continued on DuoNeb's, Pulmicort and Perforomist, prednisone, empiric antibiotics in the form of Vibramycin. She's been transitioned to Eliquis. She is again educated regarding the importance of complete smoking cessation. She does have home oxygen and home nebulizer. I, the cosigning physician, performed a history & physical examination of the patient. Lungs sounds with bilateral end expiratory wheeze, diminished. Maintaining good O2 saturations in the 90s on 2 L/m per nasal cannula. I disc ussed the assessment and plan of care with my nurse practitioner, Lina Aldana. I attest to the above note as dictated by her.
--- NOTE | 2019-01-08 14:51 | P.PN ---
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 Right lower lobe pulmonary artery. Patient was comparing of pain in the right leg in the right leg Doppler did show DVT as well. Patient was switched to Eliquis discontinue IV heparin patient is severely short of breath at this time requiring 3-4 L of oxygen. Patient is also on systemic steroids inhalational treatments. Patient denied any fever chills, patient is comparing of cough with the yellowish production. Patient denied any recent travel patient is 78 because of which patient is not undergoing any cancers in procedures patient denied any significant weight loss patient denied any recent surgery. Patient is not bedbound or wheelchair bound. 01/07/2019 Patient is sitting up at the side of the bed in no acute distress. Patient st ates her breathing is much improved and not requiring any oxygen at this time. patient intermittently uses 2-3 L of oxygen. She states that she does have oxygen at home and only uses it as needed. Patient continues to have some bilateral wheezing noted on exam with some improvement today. IV steroids are being discontinued and transitioned over to oral steroids. Will continue to monitor closely. Patient is off the IV heparin drip and is currently on oral anticoagulation. Case management is following as she might be requiring placement or rehab upon discharge as the family has stated that she sits all day with no movement from her chair except for to go to the bathroom. 01/08/2019 Patient is sitting up in bed in no acute distress. Patient states her breathing has gotten a little better and continues to have some expiratory wheezing noted on exam. Is currently on 2 L of oxygen via nasal cannula. Patient was transitioned to oral prednisone today and will continue to monitor. She continues to have a cough and was given some Robitussin as needed. Will add Tessalon Perles as needed as well. Discussed with the patient at length today about discharge plans and patient states that she would like to go back to her granddaughter's house and that it was her son's decision to attempt to send her to a rehab facility upon discharge. Case management and social work is following and made aware of this. Will continue to monitor. Objective - Vital Signs Vital signs: Vital Signs Temp 98.5 F 01/08/19 11:30 Pulse 100 01/08/19 12:03 Resp 16 01/08/19 11:30 BP 115/65 01/08/19 11:30 Pulse Ox 94 L 01/08/19 11:30 Intake & Output 01/07/19 01/08/19 01/08/19 18:59 06:59 18:59 Intake Total 200 Balance 200 Intake: Blood Product 200 Other: Voiding Method Bedside Commode Bedside Commode Bedside Commode # Voids 1 - Exam GENERAL: The patient is alert and oriented x3, not in any acute distress. Well developed, well nourished. HEENT: Pupils are round and equally reacting to light. EOMI. No scleral icterus. No conjunctival pallor. Normocephalic, atraumatic. No pharyngeal erythema. No thyromegaly. CARDIOVASCULAR: S1 and S2 present. No murmurs, rubs, or gallops. PULMONARY: Mild expiratory wheezing noted on exam which is improved from yesterday ABDOMEN: Soft, nontender, nondistended, normoactive bowel sounds. No palpable organomegaly. MUSCULOSKELETAL: No joint swelling or deformity. EXTREMITIES: No cyanosis, clubbing, or pedal edema. NEUROLOGICAL: Gross neurological examination did not reveal any focal deficits. SKIN: No rashes. - Labs CBC & Chem 7: 01/08/19 07:34 01/05/19 18:19 Labs: Abnormal Lab Results - Last 24 Hours (Table) 01/07/19 01/07/19 01/08/19 Range/Units 16:50 20:05 07:24 WBC (3.8-10.6) k/uL Hgb (11.4-16.0) gm/dL Neutrophils # (1.3-7.7) k/uL Monocytes # (0-1.0) k/uL POC Glucose (mg/dL) 348 H 286 H 193 H (75-99) mg/dL 01/08/19 01/08/19 Range/Units 07:34 11:31 WBC 17.1 H (3.8-10.6) k/uL Hgb 11.3 L (11.4-16.0) gm/dL Neutrophils # 11.9 H (1.3-7.7) k/uL Monocytes # 1.1 H (0-1.0) k/uL POC Glucose (mg/dL) 227 H (75-99) mg/dL Assessment and Plan Assessment: -Acute on chronic hypercapnic respiratory failure seconded to COPD exacerbation and she was started on systemic steroids and inhalational treatments -Acute hypoxic respiratory failure secondary to pulmonary embolism patient will be switched to Eliquis IV heparin was discontinued prostrating factor for her right leg DVT and pulmonary embolism is unknown patient may need lifelong anticoagulation. -Chronic respiratory failure secondary to COPD -Type 2 diabetes mellitus patient blood sugars are expected to go because of systemic steroids will cut down the steroids to 40 twice a day patient will be resumed on her home regimen along with sliding scale insulin. Patient was switched to oral steroids today. -Diabetic peripheral neuropathy -Depression -Hyperlipidemia -Gastroesophageal reflux disease -Nicotine use: Counseling was provided Recommendations and discussion: Recommend continue current medications, management, and symptomatic treatment. Will continue to monitor closely. Pulmonary is following closely. Discussed wi th the patient today about discharge plans and states that she would like to go back home to her granddaughter's house. She states her son monitor to go to rehab facility for possible permanent placement. Family states that the patient sits all day and does not get up at all except for to go to the bathroom. Case management and social work are aware. Guarded prognosis. Further recommendations to follow. Possible discharge in 24-48 hours.
[2019-01-08 17:17] LABS: Glucose,Whole Blood 285 mg/dL (75-99)
[2019-01-08] MEDS: BENZONATATE 100 MG CAP PO PRN (17:20)
[2019-01-08 20:09] LABS: Glucose,Whole Blood 207 mg/dL (75-99)
[2019-01-08] MEDS: ATORVASTATIN 10 MG TAB PO SCH (20:37)
[2019-01-09] MEDS: BENZONATATE 100 MG CAP PO PRN (00:20)
[2019-01-09] MEDS: LEVOTHYROXINE 112 MCG TAB PO SCH (06:00)
[2019-01-09 07:04] LABS: Glucose,Whole Blood 130 mg/dL (75-99)
[2019-01-09] MEDS: INSULIN ASPART (NovoLOG) 100 UNIT/ML VIAL SQ SCH ×4 (07:27→13:08)
[2019-01-09] MEDS: DOXYCYCLINE 100 MG CAP PO SCH (07:49)
[2019-01-09] MEDS: DULoxetine HCL 60 MG CAPSULE.DR PO SCH (07:49)
[2019-01-09] MEDS: PREGABALIN 100 MG CAP PO SCH (07:49)
[2019-01-09] MEDS: INSULIN DETEMIR (LEVEMIR) 100 UNIT/ML SYR SQ SCH (07:49)
[2019-01-09] MEDS: DILTIAZEM CD 120 MG CAP.ER.24H PO SCH (07:50)
[2019-01-09] MEDS: predniSONE 20 MG TAB PO SCH (07:50)
[2019-01-09] MEDS: APIXABAN 5 MG TAB PO SCH (07:50)
[2019-01-09] MEDS: PANTOPRAZOLE 40 MG TABLET PO SCH (07:50)
[2019-01-09] MEDS: guaiFENesin 600 MG TABLET.ER PO SCH (07:50)
[2019-01-09] MEDS: BUDESONIDE 1 MG/2 ML NEBU INHALATION SCH (08:35)
[2019-01-09] MEDS: IPRATROPIUM-ALBUTEROL 3 ML NEB INHALATION SCH ×2 (08:36→11:30)
[2019-01-09] MEDS: FORMOTEROL FUMARATE 20 MCG/2 ML NEBU INHALATION SCH ×2 (08:36→08:58)
[2019-01-09 11:08] LABS: Glucose,Whole Blood 148 mg/dL (75-99)
[2019-01-09 11:47] VITALS: BP 145/67; RESP 20; TEMP 98.1
[2019-01-09 12:54] VITALS: PULSE 96
--- NOTE | 2019-01-09 13:19 | P.DS ---
Providers Date of admission: 01/06/19 15:27 Expected date of discharge: 01/09/19 Attending physician: Robert Harris Consults: 01/05/19 20:14 Consult Physician Routine Consulting Provider: Noel Watts Consult Reason/Comments: COPD exacerbation, pulmonary embolism Do you want consulting provider notified?: Yes Primary care physician: [facility] Course: Final diagnosis Acute on chronic hypercapnic respiratory failure secondary to COPD exacerbation Acute hypoxic respiratory failure secondary to pulmonary embolism Right leg DVT Chronic respiratory failure secondary to COPD Diabetes mellitus type 2 Diabetic peripheral neuropathy Depression Hyperlipidemia Gastroesophageal reflux disease Nicotine use Discharge disposition Patient is being discharged in a stable condition with guarded prognosis to home and will follow-up with pulmonary in 1-2 weeks. Patient was started on Eliquis and will continue with 10 mg twice daily for 1 week and then will start 5 mg t wice daily. Patient is to follow-up with her primary care provider upon discharge. Total time taken is 35 minutes. History of present illness This is a pleasant 78-year-old female with a history of COPD who came in with severe shortness of breath and is being closely monitored. Patient underwent a CAT scan of the chest showing a pulmonary embolism in the right lower lobe pulmonary artery as well as a DVT in the right lower extremity and was on a heparin drip. Patient was transitioned over to eliquis and will continue on that at 10 mg twice daily for the next week and then may start 5 mg twice daily and continue on that. Patient will follow up with pulmonary in the outpatient setting in 1-2 weeks time. Patient will continue with short course of oral antibiotics as well as prednisone taper upon discharge. Currently patient's condition is stable with much improvement and patient would like to go home today. Per her son she sits in a chair all day at home and barely gets up and he was requesting possible rehab placement for permanent placement in case management was following. Patient would not like to go to rehab at this time and would like to return home where she resides with her granddaughter. Patient states that she has family that can help her make her appointments for follow- up. Patient denies any chest pain or palpitations at this time. Patient states that her shortness of breath with exertion has improved. Patient is on 2 L via nasal cannula at home. Patient is afebrile. On exam vital signs are stable. Temp is 98.1F, pulse is 90, respirations are 20, blood pressure is 145/67, oxygen saturation is 95% on room air. Cardio S1 and S2 are present. Respiratory system shows diminished breath sounds at the bases with expiratory wheezing noted. Abdomen is soft, obese, nontender. Nervous system shows no focal deficits. Please refer to medication reconciliation sheet for a list of medications. Patient Condition at Discharge: Fair Plan - Discharge Summary Discharge Rx Participant: Yes New Discharge Prescriptions: New predniSONE 10 mg PO DIRECTED #30 tab Budesonide-Formot 160-4.5 Mcg [Symbicort 160-4.5 Mcg Inhaler] 2 puff INHALATION BID 30 Days #1 inhaler Benzonatate [Tessalon Perles] 100 mg PO TID PRN #30 cap PRN Reason: Cough Doxycycline [Vibramycin] 100 mg PO BID 3 Days #6 cap Apixaban [Eliquis] 5 mg PO BID 37 Days #88 tab Continue Levothyroxine Sodium [Synthroid] 112 mcg PO DAILY Omeprazole 20 mg PO DAILY Simvastatin [Zocor] 20 mg PO HS Insulin Degludec [Tresiba] 18 units SQ HS Albuterol Sulfate [Proair Hfa] 2 puff INHALATION RT-QID PRN PRN Reason: Shortness Of Breath Pregabalin [Lyrica] 100 mg PO BID Insulin Degludec [Tresiba] 38 units SQ QAM Furosemide [Lasix] 20 mg PO DAILY Diltiazem HCl [Diltiazem 24Hr ER] 120 mg PO DAILY DULoxetine HCL [Cymbalta] 60 mg PO DAILY Albuterol Nebulized [Ventolin Nebulized] 2.5 mg INHALATION RT-TID Insulin Lispro [humaLOG Kwikpen] 6 unit SQ AC-TID Discharge Medication List Levothyroxine Sodium [Synthroid] 112 mcg PO DAILY 10/26/15 [History] Omeprazole 20 mg PO DAILY 10/26/15 [History] Simvastatin [Zocor] 20 mg PO HS 10/26/15 [History] Albuterol Sulfate [Proair Hfa] 2 puff INHALATION RT-QID PRN 09/03/18 [History] DULoxetine HCL [Cymbalta] 60 mg PO DAILY 09/03/18 [History] Diltiazem HCl [Diltiazem 24Hr ER] 120 mg PO DAILY 09/03/18 [History] Furosemide [Lasix] 20 mg PO DAILY 09/03/18 [History] Insulin Degludec [Tresiba] 18 units SQ HS 09/03/18 [History] Insulin Degludec [Tresiba] 38 units SQ QAM 09/03/18 [History] Pregabalin [Lyrica] 100 mg PO BID 09/03/18 [History] Albuterol Nebulized [Ventolin Nebulized] 2.5 mg INHALATION RT-TID 01/05/19 [History] Insulin Lispro [humaLOG Kwikpen] 6 unit SQ AC-TID 01/05/19 [History] Apixaban [Eliquis] 5 mg PO BID 37 Days #88 tab 01/09/19 [Rx] Benzonatate [Tessalon Perles] 100 mg PO TID PRN #30 cap 01/09/19 [Rx] Budesonide-Formot 160-4.5 Mcg [Symbicort 160-4.5 Mcg Inhaler] 2 puff INHALATION BID 30 Days #1 inhaler 01/09/19 [Rx] Doxycycline [Vibramycin] 100 mg PO BID 3 Days #6 cap 01/09/19 [Rx] predniSONE 10 mg PO DIRECTED #30 tab 01/09/19 [Rx] Follow up Appointment(s)/Referral(s): Kai Chen DO [Primary Care Provider] - 1-2 days Lina Aldana NPC [Nurse Practitioner] - 1 Week Activity/Diet/Wound Care/Special Instructions: Activity Limited until follow-up Continue current diet Complete course of antibiotics until finished Follow-up with primary care provider this week Follow up with pulmonary in 1-2 weeks Continue taking Eliquis 10 mg twice daily for 1 week and then may start 5 mg twice daily Discharge Disposition: HOME SELF-CARE
== END 2019-01-09 14:45 | disposition home or self-care (01) | DRG 175 ==
LOC: EC 17:31 → 3NMEDONC 21:29 → OBSVTOIN 01-06 15:27
PROVIDERS: ADMIT Hospitalist; ATTEND Hospitalist
DX: I26.99 Other pulmonary embolism without acute cor pulmonale (principal); J96.21 Acute and chronic respiratory failure with hypoxia; J96.22 Acute and chronic respiratory failure with hypercapnia; I82.411 Acute embolism and thrombosis of right femoral vein; J44.1 Chronic obstructive pulmonary disease with (acute) exacerbation; K21.9 Gastro-esophageal reflux disease without esophagitis; I10 Essential (primary) hypertension; F32.9 Major depressive disorder, single episode, unspecified; F17.200 Nicotine dependence, unspecified, uncomplicated; E78.5 Hyperlipidemia, unspecified; E66.9 Obesity, unspecified; E11.42 Type 2 diabetes mellitus with diabetic polyneuropathy; E03.9 Hypothyroidism, unspecified; R13.10 Dysphagia, unspecified; Z96.653 Presence of artificial knee joint, bilateral; Z79.01 Long term (current) use of anticoagulants; Z79.4 Long term (current) use of insulin; Z79.890 Hormone replacement therapy; Z79.899 Other long term (current) drug therapy; Z86.711 Personal history of pulmonary embolism; Z86.718 Personal history of other venous thrombosis and embolism; Z99.81 Dependence on supplemental oxygen; Z68.33 Body mass index [BMI] 33.0-33.9, adult; Z90.49 Acquired absence of other specified parts of digestive tract; Z90.89 Acquired absence of other organs; Z98.51 Tubal ligation status
CPT/HCPCS: 36415; 71046; 71275; 80053; 83735; 84484; 85025; 85379; 85610; 85730; 93970; 94640; 94760; 96361; 96365; 96376; 99285

== ENCOUNTER 2019-03-02 15:22 | Inpatient (IN) | payer MEDICARE, OTHER ==
[2019-03-02] MEDS ORDERED: ACETAMINOPHEN TAB 500 MG TAB PO STA (15:41)
[2019-03-02] MEDS ORDERED: NITROGLYCERIN SL TABS 0.4 MG TAB SUBLINGUAL STA (15:42)
[2019-03-02] MEDS ORDERED: ASPIRIN 81 MG PO STA (15:42)
--- NOTE | 2019-03-02 15:44 | ED ---
General Adult HPI - General Chief complaint: Shortness of Breath Stated complaint: Burning in the chest Time Seen by Provider: 03/02/19 15:24 Source: patient, RN notes reviewed Mode of arrival: EMS Limitations: no limitations - History of Present Illness Initial comments: Patient is a pleasant 78-year-old female presenting to the emergency Department with multiple complaints. Patient complains of burning in the chest. Burning the chest is somewhat improved and is moderate at this time rated 5/10. Patient has nausea and belching. No vomiting. Patient has had several episodes of diarrhea over the past 2 days, approximately 3-4. No fevers. No abdominal pain. Patient does feel short of breath. No diaphoresis. - Related Data Home Medications Medication Instructions Recorded Confirmed Levothyroxine Sodium [Synthroid] 112 mcg PO DAILY 10/26/15 01/05/19 Omeprazole 20 mg PO DAILY 10/26/15 01/05/19 Simvastatin [Zocor] 20 mg PO HS 10/26/15 01/05/19 Albuterol Sulfate [Proair Hfa] 2 puff INHALATION RT-QID PRN 09/03/18 01/05/19 DULoxetine HCL [Cymbalta] 60 mg PO DAILY 09/03/18 01/05/19 Diltiazem HCl [Diltiazem 24Hr ER] 120 mg PO DAILY 09/03/18 01/05/19 Furosemide [Lasix] 20 mg PO DAILY 09/03/18 01/05/19 Insulin Degludec [Tresiba] 18 units SQ HS 09/03/18 01/05/19 Insulin Degludec [Tresiba] 38 units SQ QAM 09/03/18 01/05/19 Pregabalin [Lyrica] 100 mg PO BID 09/03/18 01/05/19 Albuterol Nebulized [Ventolin 2.5 mg INHALATION RT-TID 01/05/19 01/05/19 Nebulized] Insulin Lispro [humaLOG Kwikpen] 6 unit SQ AC-TID 01/05/19 01/05/19 Previous Rx's Medication Instructions Recorded Apixaban [Eliquis] 5 mg PO BID 37 Days #88 tab 01/09/19 Benzonatate [Tessalon Perles] 100 mg PO TID PRN #30 cap 01/09/19 Budesonide-Formot 160-4.5 Mcg 2 puff INHALATION BID 30 Days #1 01/09/19 [Symbicort 160-4.5 Mcg Inhaler] inhaler Doxycycline [Vibramycin] 100 mg PO BID 3 Days #6 cap 01/09/19 predniSONE 10 mg PO DIRECTED #30 tab 01/09/19 Allergies Allergy/AdvReac Type Severity Reaction Status Date / Time No Known Allergies Allergy Verified 01/05/19 21:55 Review of Systems ROS Statement: Those systems with pertinent positive or pertinent negative responses have been documented in the HPI. ROS Other: All systems not noted in ROS Statement are negative. Constitutional: Denies: fever Eyes: Denies: eye pain ENT: Denies: ear pain Respiratory: Reports: dyspnea. Denies: cough Cardiovascular: Reports: chest pain Endocrine: Denies: fatigue Gastrointestinal: Reports: nausea, diarrhea. Denies: abdominal pain, vomiting Genitourinary: Denies: dysuria Musculoskeletal: Denies: back pain Skin: Denies: rash Neurological: Denies: weakness Past Medical History Past Medical History: Diabetes Mellitus, GERD/Reflux, Hyperlipidemia, Hyp ertension, Skin Disorder, Thyroid Disorder Additional Past Medical History / Comment(s): migraines, arthritis, itchy sores on back, History of Any Multi-Drug Resistant Organisms: None Reported Past Surgical History: Cholecystectomy, Joint Replacement, Tonsillectomy, Tubal Ligation Additional Past Surgical History / Comment(s): nik knee replacement, nik cataracts Past Anesthesia/Blood Transfusion Reactions: Motion Sickness Additional Past Anesthesia/Blood Transfusion Reaction / Comment(s): hard time waking up and SOB when waking up Past Psychological History: Depression Smoking Status: Current some day smoker Past Alcohol Use History: None Reported Past Drug Use History: None Reported - Past Family History Mother Family Medical History: No Reported History General Exam Limitations: no limitations General appearance: alert, in no apparent distress Head exam: Present: atraumatic Eye exam: Present: normal appearance, PERRL ENT exam: Present: normal oropharynx Neck exam: Present: normal inspection Respiratory exam: Present: normal lung sounds bilaterally. Absent: chest wall tenderness Cardiovascular Exam: Present: tachycardia Expanded Peripheral pulses: 2+: Radial (R), Radial (L), Dorsalis Pedis (R), Dorsalis Pedis (L) GI/Abdominal exam: Present: soft. Absent: tenderness Extremities exam: Present: pedal edema (+2 bilateral) Neurological exam: Present: alert Psychiatric exam: Present: normal affect, normal mood Skin exam: Present: normal color Course Vital Signs 03/02/19 03/02/19 03/02/19 15:30 16:14 16:52 Temperature 101.1 F H Pulse Rate 112 H 112 H Respiratory 18 18 28 H Rate Blood Pressure 112/67 138/72 O2 Sat by Pulse 97 93 L Oximetry - Reevaluation(s) Reevaluation #1: 03/02/19 15:45 Patient adds that she is on Eliquis with history of DVT. 03/02/19 17:03 Completely rule out pneumonia on chest x-ray. There is concern for possible sepsis and patient will be started on IV antibiotics. Blood culture and lactic acid have been ordered. 03/02/19 17:15 Case was discussed in detail with Dr. Goodman schwartz, with [facility] who will admit. He recommends cefepime and vancomycin and ID consult and will evaluate patient. EKG Findings - EKG Comments: EKG Findings:: Sinus tachycardia 110. LA 154. QRS 76. QT 3:30. QTC 457. Normal axis. Low QRS voltage. Nonspecific ST-T. Some motion artifact is present. Medical Decision Making - Medical Decision Making Patient reevaluated and updated. [facility] has been paged for admission covering for hospital call. - Lab Data Result diagrams: 03/02/19 15:56 03/02/19 15:56 Lab Results 03/02/19 03/02/19 03/02/19 Range/Units 15:56 15:56 15:56 WBC 15.3 H (3.8-10.6) k/uL RBC 2.74 L (3.80-5.40) m/uL Hgb 5.8 L* D (11.4-16.0) gm/dL Hct 19.8 L* (34.0-46.0) % MCV 72.2 L D (80.0-100.0) fL MCH 21.3 L (25.0-35.0) pg MCHC 29.5 L (31.0-37.0) g/dL RDW 16.2 H (11.5-15.5) % Plt Count 256 (150-450) k/uL Neutrophils % 74 % Lymphocytes % 14 % Monocytes % 10 % Eosinophils % 0 % Basophils % 1 % Neutrophils # 11.3 H (1.3-7.7) k/uL Lymphocytes # 2.1 (1.0-4.8) k/uL Monocytes # 1.6 H (0-1.0) k/uL Eosinophils # 0.1 (0-0.7) k/uL Basophils # 0.1 (0-0.2) k/uL Hypochromasia Marked Poikilocytosis Marked Anisocytosis Slight Microcytosis Moderate PT (9.0-12.0) sec INR (<1.2) APTT (22.0-30.0) sec Sodium 135 L (137-145) mmol/L Potassium 4.2 (3.5-5.1) mmol/L Chloride 99 (98-107) mmol/L Carbon Dioxide 27 (22-30) mmol/L Anion Gap 9 mmol/L BUN 11 (7-17) mg/dL Creatinine 0.53 (0.52-1.04) mg/dL Est GFR (CKD-EPI)AfAm >90 (>60 ml/min/1.73 sqM) Est GFR (CKD-EPI)NonAf >90 (>60 ml/min/1.73 sqM) Glucose 210 H (74-99) mg/dL Plasma Lactic Acid Jonathon 2.2 H* (0.7-2.0) mmol/L Calcium 8.6 (8.4-10.2) mg/dL Total Bilirubin 1.3 (0.2-1.3) mg/dL AST 16 (14-36) U/L ALT 17 (9-52) U/L Alkaline Phosphatase 79 (38-126) U/L Creatine Kinase 23 L (30-135) U/L Troponin I (0.000-0.034) ng/mL Total Protein 5.6 L (6.3-8.2) g/dL Albumin 3.3 L (3.5-5.0) g/dL Urine Color Urine Appearance (Clear) Urine pH (5.0-8.0) Ur Specific [place] (1.001-1.035) Urine Protein (Negative) Urine Glucose (UA) (Negative) Urine Ketones (Negative) Urine Blood (Negative) Urine Nitrite (Negative) Urine Bilirubin (Negative) Urine Urobilinogen (<2.0) mg/dL Ur Leukocyte Esterase (Negative) Urine RBC (0-5) /hpf Urine WBC (0-5) /hpf Ur Squamous Epith Cells (0-4) /hpf Urine Bacteria (None) /hpf Hyaline Casts (0-2) /lpf Urine Mucus (None) /hpf Stool Occult Blood (Negative) Blood Type Recheck Bld Type Recheck Status Spec Expiration Date 03/02/19 03/02/19 03/02/19 Range/Units 15:56 15:56 15:56 WBC (3.8-10.6) k/uL RBC (3.80-5.40) m/uL Hgb (11.4-16.0) gm/dL Hct (34.0-46.0) % MCV (80.0-100.0) fL MCH (25.0-35.0) pg MCHC (31.0-37.0) g/dL RDW (11.5-15.5) % Plt Count (150-450) k/uL Neutrophils % % Lymphocytes % % Monocytes % % Eosinophils % % Basophils % % Neutrophils # (1.3-7.7) k/uL Lymphocytes # (1.0-4.8) k/uL Monocytes # (0-1.0) k/uL Eosinophils # (0-0.7) k/uL Basophils # (0-0.2) k/uL Hypochromasia Poikilocytosis Anisocytosis Microcytosis PT 11.1 (9.0-12.0) sec INR 1.1 (<1.2) APTT 24.2 (22.0-30.0) sec Sodium (137-145) mmol/L Potassium (3.5-5.1) mmol/L Chloride (98-107) mmol/L Carbon Dioxide (22-30) mmol/L Anion Gap mmol/L BUN (7-17) mg/dL Creatinine (0.52-1.04) mg/dL Est GFR (CKD-EPI)AfAm (>60 ml/min/1.73 sqM) Est GFR (CKD-EPI)NonAf (>60 ml/min/1.73 sqM) Glucose (74-99) mg/dL Plasma Lactic Acid Jonathon (0.7-2.0) mmol/L Calcium (8.4-10.2) mg/dL Total Bilirubin (0.2-1.3) mg/dL AST (14-36) U/L ALT (9-52) U/L Alkaline Phosphatase (38-126) U/L Creatine Kinase (30-135) U/L Troponin I <0.012 (0.000-0.034) ng/mL Total Protein (6.3-8.2) g/dL Albumin (3.5-5.0) g/dL Urine Color Urine Appearance (Clear) Urine pH (5.0-8.0) Ur Specific [place] (1.001-1.035) Urine Protein (Negative) Urine Glucose (UA) (Negative) Urine Ketones (Negative) Urine Blood (Negative) Urine Nitrite (Negative) Urine Bilirubin (Negative) Urine Urobilinogen (<2.0) mg/dL Ur Leukocyte Esterase (Negative) Urine RBC (0-5) /hpf Urine WBC (0-5) /hpf Ur Squamous Epith Cells (0-4) /hpf Urine Bacteria (None) /hpf Hyaline Casts (0-2) /lpf Urine Mucus (None) /hpf Stool Occult Blood (Negative) Blood Type Recheck No Previous Record Bld Type Recheck Status CABO Indicated Spec Expiration Date 03/05/2019 - 235503/02/19 03/02/19 Range/Units 16:42 16:42 WBC (3.8-10.6) k/uL RBC (3.80-5.40) m/uL Hgb (11.4-16.0) gm/dL Hct (34.0-46.0) % MCV (80.0-100.0) fL MCH (25.0-35.0) pg MCHC (31.0-37.0) g/dL RDW (11.5-15.5) % Plt Count (150-450) k/uL Neutrophils % % Lymphocytes % % Monocytes % % Eosinophils % % Basophils % % Neutrophils # (1.3-7.7) k/uL Lymphocytes # (1.0-4.8) k/uL Monocytes # (0-1.0) k/uL Eosinophils # (0-0.7) k/uL Basophils # (0-0.2) k/uL Hypochromasia Poikilocytosis Anisocytosis Microcytosis PT (9.0-12.0) sec INR (<1.2) APTT (22.0-30.0) sec Sodium (137-145) mmol/L Potassium (3.5-5.1) mmol/L Chloride (98-107) mmol/L Carbon Dioxide (22-30) mmol/L Anion Gap mmol/L BUN (7-17) mg/dL Creatinine (0.52-1.04) mg/dL Est GFR (CKD-EPI)AfAm (>60 ml/min/1.73 sqM) Est GFR (CKD-EPI)NonAf (>60 ml/min/1.73 sqM) Glucose (74-99) mg/dL Plasma Lactic Acid Jonathon (0.7-2.0) mmol/L Calcium (8.4-10.2) mg/dL Total Bilirubin (0.2-1.3) mg/dL AST (14-36) U/L ALT (9-52) U/L Alkaline Phosphatase (38-126) U/L Creatine Kinase (30-135) U/L Troponin I (0.000-0.034) ng/mL Total Protein (6.3-8.2) g/dL Albumin (3.5-5.0) g/dL Urine Color Yellow Urine Appearance Cloudy H (Clear) Urine pH 5.5 (5.0-8.0) Ur Specific [place] 1.026 (1.001-1.035) Urine Protein 1+ H (Negative) Urine Glucose (UA) Negative (Negative) Urine Ketones Trace H (Negative) Urine Blood Negative (Negative) Urine Nitrite Negative (Negative) Urine Bilirubin Negative (Negative) Urine Urobilinogen 3.0 (<2.0) mg/dL Ur Leukocyte Esterase Negative (Negative) Urine RBC <1 (0-5) /hpf Urine WBC 3 (0-5) /hpf Ur Squamous Epith Cells 1 (0-4) /hpf Urine Bacteria Rare H (None) /hpf Hyaline Casts 11 H (0-2) /lpf Urine Mucus Many H (None) /hpf Stool Occult Blood Positive H (Negative) Blood Type Recheck Bld Type Recheck Status Spec Expiration Date - Radiology Data Radiology results: image reviewed (Chest x-ray shows some increased markings central venous. Also blunting bilateral costophrenic angle, correlate for pleural effusion, cannot rule out infiltrate.) Critical Care Time Critical Care Time: Yes Total Critical Care Time: 32 Disposition Clinical Impression: GI hemorrhage, Fever Disposition: ADMITTED IP TO THIS [facility] Condition: Serious Is patient prescribed a controlled substance at d/c from ED?: No Referrals: Kai Chen DO [Primary Care Provider] - 1-2 days Decision Time: 17:04
[2019-03-02] MEDS: SODIUM CHLORIDE 0.9% 1,000 ML IV SCH (16:07)
[2019-03-02 16:21] LABS: ALT 17 U/L (9-52); AST 16 U/L (14-36); African American GFR (CKD) >90 (>60 ml/min/1.73 sqM); Albumin 3.3 g/dL (3.5-5.0); Alkaline Phosphatase 79 U/L (38-126); Anion Gap 9 mmol/L; Blood Urea Nitrogen 11 mg/dL (7-17); Calcium 8.6 mg/dL (8.4-10.2); Carbon Dioxide 27 mmol/L (22-30); Chloride 99 mmol/L (98-107); Creatine Kinase 23 U/L (30-135); Glucose 210 mg/dL (74-99); INR 1.1 (<1.2); Non-African American GFR(CKD) >90 (>60 ml/min/1.73 sqM); Partial Thromboplastin Time 24.2 sec (22.0-30.0); Potassium 4.2 mmol/L (3.5-5.1); Prothrombin Time 11.1 sec (9.0-12.0); Sodium 135 mmol/L (137-145); Total Bilirubin 1.3 mg/dL (0.2-1.3); Total Protein 5.6 g/dL (6.3-8.2)
[2019-03-02 16:26] LABS: Anisocytosis Slight; Basophils # (A) 0.1 k/uL (0-0.2); Basophils % (A) 1 %; Eosinophils # (A) 0.1 k/uL (0-0.7); Eosinophils % (A) 0 %; Hypochromasia Marked; Lymphocytes # (A) 2.1 k/uL (1.0-4.8); Lymphocytes % (A) 14 %; MCH 21.3 pg (25.0-35.0); MCHC 29.5 g/dL (31.0-37.0); Microcytosis Moderate; Monocytes # (A) 1.6 k/uL (0-1.0); Monocytes % (A) 10 %; Neutrophils # (A) 11.3 k/uL (1.3-7.7); Neutrophils % (A) 74 %; Platelet Count 256 k/uL (150-450); Poikilocytosis Marked; RBC 2.74 m/uL (3.80-5.40); RDW 16.2 % (11.5-15.5); WBC 15.3 k/uL (3.8-10.6)
[2019-03-02 16:34] LABS: HGB 5.8 gm/dL (11.4-16.0)
[2019-03-02 16:35] LABS: HCT 19.8 % (34.0-46.0)
[2019-03-02] MEDS ORDERED: PANTOPRAZOLE 40 MG/10 ML VIAL IVP STA (16:48)
--- NOTE | 2019-03-02 16:59 | XR ---
EXAMINATION TYPE: XR chest 2V DATE OF EXAM: 03/02/2019 COMPARISON: Prior chest x-ray 01/05/2019 HISTORY: Fever, burning in chest, cough and shortness of breath TECHNIQUE: Frontal and lateral views of the chest are obtained. FINDINGS: Heart is enlarged. Central vascularity and interstitium are increased. Pulmonary artery en larged, consider pulmonary artery hypertension No evident pneumothorax. There is blunting the costoph renic angles. Prominently lung volumes with blunting of hemidiaphragms suggests underlying COPD. IMPRESSION: Correlate for congestive heart failure, there are associated pleural effusions. Pneumoni a not excluded.
[2019-03-02 17:01] LABS: Appearance,Urine Cloudy (Clear); Bacteria,Urine Rare /hpf; Bilirubin,Urine Negative (Negative); Blood,Urine Negative (Negative); Color,Urine Yellow; Glucose,Urine (UA) Negative (Negative); Hyaline Casts,Urine 11 /lpf (0-2); Ketones,Urine Trace (Negative); Leukocyte Esterase,Urine Negative (Negative); Mucus,Urine Many /hpf; Nitrite,Urine Negative (Negative); PH, Urine 5.5 (5.0-8.0); Protein,Urine 1+ (Negative); RBC,Urine <1 /hpf (0-5); Specific Gravity,Urine 1.026 (1.001-1.035); Squamous Epithelial Cell,Urine 1 /hpf (0-4)
[2019-03-02] MEDS ORDERED: PNEUMONIA PROTOCOL UTILIZED 1 EACH MISC PO PRN (17:04)
[2019-03-02] MEDS ORDERED: NALOXONE 0.4 MG/ML 1 ML VIAL IV PRN (17:05)
[2019-03-02] MEDS ORDERED: LEVOFLOXACIN 750MG-D5W PMX 750 MG in DEXTROSE/WATER 1 150ML.BAG IVPB STA (17:05)
[2019-03-02] MEDS ORDERED: CEFEPIME 2 GM in SODIUM CHLORIDE 0.9% 100 ML IVPB STA (17:13)
[2019-03-02] MEDS ORDERED: VANCOMYCIN IV PER PHARMACY 1 EACH MISC MISCELLANE PRN (17:14)
[2019-03-02] MEDS ORDERED: LEVOFLOXACIN 750MG-D5W PMX 750 MG in DEXTROSE/WATER 1 150ML.BAG IVPB SCH (17:15)
[2019-03-02] MEDS ORDERED: VANCOMYCIN 1,750 MG in SODIUM CHLORIDE 0.9% 500 ML 500 ML IVPB STA (17:17)
[2019-03-02] MEDS ORDERED: ALBUTEROL NEBULIZED 2.5 MG/3 ML INHALATION PRN (18:32)
--- NOTE | 2019-03-02 18:42 | P.HPIM ---
History of Present Illness H&P Date: 03/02/19 Chief Complaint: Belching and diarrhea 78-year-old female with PMH of fibromyalgia, COPD, diabetes mellitus, hypertension, recent diagnosis of right lower extremity DVT and PE presents the ED for constellation of symptoms. Patient states that over the last 2 days she has been burping and belching with symptoms of heartburn. Symptoms got worse today prompting her to come to the ED. She also reports a 2 day history of diarrhea. She is having 3-4 bowel movements daily described as loose stool and dark brown. She denies any blood in her stool or melena. Patient reports some chills but denies fever. She reports a cough that has been ongoing for the past 2 weeks productive of yellow sputum. Patient endorses some shortness of breath but at baseline. She also reports a decreased appetite over the past 2 days. Patient reports smoking 2 packs of cigarettes daily for many many years. She denies any headache, lower extremity edema, nausea or vomiting, chest pain, palpitations, changes in urination. She denies any dizziness, numbness/weakness/tingling of the extremities. In the ED, vital signs showed T- max of 101.1 Fahrenheit along with heart rate of 112. Vital signs were otherwise stable. CBC showed leukocytosis of 15.3, hemoglobin of 5.8. Coagulation panel was negative. CMP showed sodium of 135, glucose of 210. Lactic acid was 2.2. Troponin was less than 0.012, EKG showing sinus tachycardia with fusion complexes and low voltage QRS. Urinalysis showed trace ketones. Stool for occult blood was positive. Chest x-ray showed associated pleural effusions. Patient is admitted for sepsis and for GI bleed with GI and ID on consultation. Review of Systems Pertinent positives and negatives as discussed in HPI, a complete review of systems was performed and all other systems are negative. Past Medical History Past Medical History: Diabetes Mellitus, GERD/Reflux, Hyperlipidemia, Hypertension, Skin Disorder, Thyroid Disorder Additional Past Medical History / Comment(s): migraines, arthritis, itchy sores on back, History of Any Multi-Drug Resistant Organisms: None Reported Past Surgical History: Cholecystectomy, Joint Replacement, Tonsillectomy, Tubal Ligation Additional Past Surgical History / Comment(s): nik knee replacement, nik catara cts Past Anesthesia/Blood Transfusion Reactions: Motion Sickness Additional Past Anesthesia/Blood Transfusion Reaction / Comment(s): hard time waking up and SOB when waking up Past Psychological History: Depression Smoking Status: Current some day smoker Past Alcohol Use History: None Reported Past Drug Use History: None Reported - Past Family History Mother Family Medical History: No Reported History Medications and Allergies Home Medications Medication Instructions Recorded Confirmed Type Levothyroxine Sodium [Synthroid] 112 mcg PO DAILY 10/26/15 03/02/19 History Omeprazole 20 mg PO DAILY 10/26/15 03/02/19 History Simvastatin [Zocor] 20 mg PO HS 10/26/15 03/02/19 History Albuterol Sulfate [Proair Hfa] 2 puff INHALATION RT-QID PRN 09/03/18 03/02/19 History DULoxetine HCL [Cymbalta] 60 mg PO DAILY 09/03/18 03/02/19 History Diltiazem HCl [Diltiazem 24Hr ER] 120 mg PO DAILY 09/03/18 03/02/19 History Insulin Degludec [Tresiba] 18 units SQ HS 09/03/18 03/02/19 History Insulin Degludec [Tresiba] 38 units SQ QA 09/03/18 03/02/19 History Pregabalin [Lyrica] 100 mg PO BID 09/03/18 03/02/19 History Albuterol Nebulized [Ventolin 2.5 mg INHALATION RT-QID PRN 01/05/19 03/02/19 History Nebulized] Insulin Lispro [humaLOG Kwikpen] 6 unit SQ AC-TID 01/05/19 03/02/19 History Apixaban [Eliquis] 5 mg PO BID 37 Days #88 tab 01/09/19 03/02/19 Rx Budesonide-Formot 160-4.5 Mcg 2 puff INHALATION RT-BID 03/02/19 03/02/19 History [Symbicort 160-4.5 Mcg Inhaler] Fluticasone/Vilanterol [Breo 1 puff INHALATION RT-DAILY 03/02/19 03/02/19 History Ellipta 200-25 Mcg INH] Allergies Allergy/AdvReac Type Severity Reaction Status Date / Time No Known Allergies Allergy Verified 03/02/19 18:05 Physical Exam Vitals: Vital Signs Temp Pulse Resp BP Pulse Ox 03/02/19 18:24 98.8 F 112 H 22 110/51 94 L 03/02/19 16:52 112 H 28 H 138/72 93 L 03/02/19 16:14 18 03/02/19 15:30 101.1 F H 112 H 18 112/67 97 Intake and Output 03/02/19 03/02/19 03/02/19 06:59 14:59 22:59 Other: Weight 99.609 kg General: [non toxic], [no distress], [appears at stated age] Derm: [warm], [dry] Head: [atraumatic], [normocephalic], [symmetric] Eyes: [EOMI], [no lid lag], [anicteric sclera] Mouth: [no lip lesion], [mucus membranes moist] Cardiovascular: [S1S2 reg], [tachycardia], [positive DP pulse bilateral], Lungs: [Decreased breath sounds bilateral], [no rhonchi, no rales] , [no accessory muscle use] Abdominal: [soft], [ nontender to palpation], [no guarding], [no appreciable organomegaly] Ext: [no gross muscle atrophy], [no edema], [no contractures] Neuro: [ CN II-XI grossly intact], [no focal neuro deficits] Psych: [Alert], [oriented], [appropriate affect] Results CBC & Chem 7: 03/02/19 15:56 03/02/19 15:56 Labs: Abnormal Lab Results - Last 24 Hours (Table) 03/02/19 03/02/19 03/02/19 Range/Units 15:56 15:56 15:56 WBC 15.3 H (3.8-10.6) k/uL RBC 2.74 L (3.80-5.40) m/uL Hgb 5.8 L* D (11.4-16.0) gm/dL Hct 19.8 L* (34.0-46.0) % MCV 72.2 L D (80.0-100.0) fL MCH 21.3 L (25.0-35.0) pg MCHC 29.5 L (31.0-37.0) g/dL RDW 16.2 H (11.5-15.5) % Neutrophils # 11.3 H (1.3-7.7) k/uL Monocytes # 1.6 H (0-1.0) k/uL Sodium 135 L (137-145) mmol/L Glucose 210 H (74-99) mg/dL Plasma Lactic Acid Jonathon 2.2 H* (0.7-2.0) mmol/L Creatine Kinase 23 L (30-135) U/L Total Protein 5.6 L (6.3-8.2) g/dL Albumin 3.3 L (3.5-5.0) g/dL Urine Appearance (Clear) Urine Protein (Negative) Urine Ketones (Negative) Urine Bacteria (None) /hpf Hyaline Casts (0-2) /lpf Urine Mucus (None) /hpf Stool Occult Blood (Negative) Crossmatch 03/02/19 03/02/19 03/02/19 Range/Units 15:56 16:42 16:42 WBC (3.8-10.6) k/uL RBC (3.80-5.40) m/uL Hgb (11.4-16.0) gm/dL Hct (34.0-46.0) % MCV (80.0-100.0) fL MCH (25.0-35.0) pg MCHC (31.0-37.0) g/dL RDW (11.5-15.5) % Neutrophils # (1.3-7.7) k/uL Monocytes # (0-1.0) k/uL Sodium (137-145) mmol/L Glucose (74-99) mg/dL Plasma Lactic Acid Jonathon (0.7-2.0) mmol/L Creatine Kinase (30-135) U/L Total Protein (6.3-8.2) g/dL Albumin (3.5-5.0) g/dL Urine Appearance Cloudy H (Clear) Urine Protein 1+ H (Negative) Urine Ketones Trace H (Negative) Urine Bacteria Rare H (None) /hpf Hyaline Casts 11 H (0-2) /lpf Urine Mucus Many H (None) /hpf Stool Occult Blood Positive H (Negative) Crossmatch See Detail Assessment and Plan Assessment: Anemia likely due to blood loss from GI tract due to Eliquis use Sepsis with unknown source of infection Lactic acidosis Diabetes mellitus with hyperglycemia Recent diagnosis of right lower extremity DVT and PE COPD on 3 L home O2 Hypertension Fibromyalgia Hemoglobin 5.8. FOBT positive. Likely due to recent start and Eliquis. Plans: Transfuse 2 units PRBC. CBC every 6 hours. Telemetry monitoring. Protonix IV. Follow GI consultation. Patient meets sepsis criteria. She has leukocytosis. She has fever of 101.1 Fahrenheit. Patient is tachycardic. Lactic acid of 2.2. UA negative for nitrite or leukocyte esterase. Chest x-ray shows pleural effusion. Abdomen exam is benign. Plans: Start broad-spectrum antibiotics with vancomycin and cefepime IV. Tylenol as needed for fever or chills. Continue normal saline at 80 mL per hour. Repeat lactic acid. Repeat chest x-ray tomorrow morning. Follow blood culture. Follow sputum culture. Follow ID consultation. Lactic acid of 2.2. Possibly due to dehydration or sepsis. Plans: IVF as above. Repeat in 4 hours. [id number] glucose 210. Plans: Hold home dose of insulin due to nothing by mouth. Insulin sliding scale. Regular Accu-Cheks. Hypoglycemic precautions. Plans: Hold Eliquis due to GI bleed. Stable. Plans: DuoNeb as needed for shortness of breath and wheezing. BP 110/51. Plans: Continue diltiazem. Monitor vitals, adjust medication as necessary. Plans: Continue Cymbalta. DVT prophylaxis: [SCD] Discussed with: [Patient and granddaughter] Anticipated discharge: [2-3 days] Anticipated discharge place: [Home] A total of [45] minutes was spent on the care of this complex patient more than 50% of the time was spent in counseling and care coordination. Patient names her granddaughter Dilma decision-maker indicates that she can't make decisions for herself. Dilma is the power of piping design specialist. Patient wanting to remain no code at this time.
[2019-03-02] MEDS: PANTOPRAZOLE 40 MG/10 ML VIAL IV SCH (19:16)
[2019-03-02 20:07] LABS: Glucose,Whole Blood 226 mg/dL (75-99)
[2019-03-02] MEDS: INSULIN ASPART (NovoLOG) 100 UNIT/ML VIAL SQ SCH (20:09)
[2019-03-02] MEDS: ATORVASTATIN 10 MG TAB PO SCH (20:10)
[2019-03-02] MEDS: PREGABALIN 100 MG CAP PO SCH (20:10)
[2019-03-03] MEDS ORDERED: FUROSEMIDE 10 MG/ML 4 ML VIAL IV STA (01:04)
[2019-03-03] MEDS: CEFEPIME 2 GM in SODIUM CHLORIDE 0.9% 100 ML IVPB SCH ×3 (01:22→17:59)
[2019-03-03] MEDS: SODIUM CHLORIDE 0.9% 1,000 ML IV SCH (01:23)
[2019-03-03 01:27] LABS: MCV 72.2 fL (80.0-100.0)
[2019-03-03 03:42] LABS: Glucose,Whole Blood 221 mg/dL (75-99)
[2019-03-03 06:10] LABS: Glucose,Whole Blood 201 mg/dL (75-99)
[2019-03-03] MEDS: LEVOTHYROXINE 112 MCG TAB PO SCH (06:40)
[2019-03-03] MEDS: INSULIN ASPART (NovoLOG) 100 UNIT/ML VIAL SQ SCH ×6 (06:40→22:48)
[2019-03-03 07:58] LABS: Anisocytosis Slight; Basophils # (A) 0.1 k/uL (0-0.2); Basophils % (A) 1 %; Eosinophils # (A) 0.2 k/uL (0-0.7); Eosinophils % (A) 2 %; HCT 24.8 % (34.0-46.0); Hypochromasia Marked; Lymphocytes # (A) 2.3 k/uL (1.0-4.8); Lymphocytes % (A) 20 %; MCH 23.3 pg (25.0-35.0); MCHC 30.6 g/dL (31.0-37.0); MCV 76.1 fL (80.0-100.0); Mean Platelet Volume 7.4; Microcytosis Slight; Monocytes # (A) 1.1 k/uL (0-1.0); Monocytes % (A) 9 %; Neutrophils # (A) 7.9 k/uL (1.3-7.7); Neutrophils % (A) 66 %; Platelet Count 186 k/uL (150-450); Poikilocytosis Marked; RBC 3.26 m/uL (3.80-5.40); RDW 17.1 % (11.5-15.5); WBC 11.8 k/uL (3.8-10.6)
[2019-03-03 08:06] LABS: African American GFR (CKD) >90 (>60 ml/min/1.73 sqM); Anion Gap 6 mmol/L; Blood Urea Nitrogen 9 mg/dL (7-17); Calcium 8.2 mg/dL (8.4-10.2); Carbon Dioxide 29 mmol/L (22-30); Chloride 103 mmol/L (98-107); Glucose 165 mg/dL (74-99); Non-African American GFR(CKD) >90 (>60 ml/min/1.73 sqM); Potassium 3.6 mmol/L (3.5-5.1); Sodium 138 mmol/L (137-145)
[2019-03-03 08:25] LABS: HGB 7.6 gm/dL (11.4-16.0)
--- NOTE | 2019-03-03 08:30 | XR ---
EXAMINATION TYPE: XR chest 2V DATE OF EXAM: 03/03/2019 COMPARISON: Prior chest x-ray 03/02/2019 HISTORY: Pneumonia TECHNIQUE: Frontal and lateral views of the chest are obtained. FINDINGS: Interstitium is prominent. Heart is enlarged. There is no evident pneumothorax, blunting t he posterior costophrenic angles again noted. There are overlying cardiac leads. Pulmonary vascularit y and harry are stable. IMPRESSION: Findings are similar to prior exam. Cardiomegaly, suspect a component of interstitial ed ligia. Small pleural effusions.
[2019-03-03] MEDS: DULoxetine HCL 60 MG CAPSULE.DR PO SCH (09:22)
[2019-03-03] MEDS: PANTOPRAZOLE 40 MG/10 ML VIAL IV SCH (09:22)
[2019-03-03] MEDS: VANCOMYCIN 1,750 MG in SODIUM CHLORIDE 0.9% 500 ML 500 ML IVPB SCH ×2 (09:22→18:00)
[2019-03-03] MEDS: DILTIAZEM CD 120 MG CAP.ER.24H PO SCH (09:23)
[2019-03-03] MEDS: PREGABALIN 100 MG CAP PO SCH ×2 (09:23→20:00)
--- NOTE | 2019-03-03 09:37 | P.CONS ---
History of Present Illness - Reason for Consult Consult date: 03/03/19 Evaluation for sepsis - History of Present Illness This is a 78-year-old female who presented to [facility] emergency center due to multiple symptoms including burping and belching with symptoms of heartburn, diarrhea with 3-4 bowel movements daily that were loose and dark brown. She denies any blood in her stool or melena. Patient reports some chills but denies fever. She reports a cough that has been ongoing for the past 2 weeks productive of yellow sputum. Patient endorses some shortness of breath but at baseline. She is on home O2 at 2 L nasal cannula. She also reports a decreased appetite over the past 2 days. Patient reports smoking 1-2 packs of cigarettes daily for greater than 50 years. She denies any headache, lower extremity edema, nausea or vomiting, chest pain, palpitations, changes in urination. She denies any dizziness, numbness/weakness/tingling of the extremities. On presentation, patient was febrile at 101.1 with heart rate of 112 and leukocytosis of 15.3 meeting SIRS criteria. Hemoglobin was 5.8. She has had a colonoscopy greater than 10 years ago. Coagulation panel was negative. CMP showed sodium of 135, glucose of 210, albumin 3.3. Lactic acid was 2.2 and repeat came down to 1.2. Troponin was less than 0.012 on 3 draws. Urinalysis showed trace ketones. Stool for occult blood was positive. Chest x- ray showed associated pleural effusions. Blood culture is in progress and sputum cultures on collected. GI consult also in place. Patient states that she has not had a bowel movement since admission. She continues to have chills but no documented fevers since admission. She states she feels "super tired" and was not able to sleep at night. The patient was started on cefepime and vancomycin. Repeat chest x-ray this morning find similar findings of cardiomegaly, interstitial edema, small pleural effusions. She is status post transfusion of 2 units packed RBCs with repeat hemoglobin of 7.6. Review of Systems Constitutional: Reports fatigue, Reports weakness, Denies anorexia, Denies chills, Denies fever, Denies poor appetite Eyes: denies blurred vision, denies pain Ears, nose, mouth and throat: Denies dysphagia, Denies headache, Denies nasal congestion, Denies nasal discharge, Denies sore throat, Denies vertigo Cardiovascular: Denies chest pain, Denies lightheadedness, Denies shortness of breath, Denies syncope Respiratory: Reports cough, Reports cough with sputum, Reports home oxygen, Reports wheezing, Denies excessive sputum, Denies hemoptysis Gastrointestinal: Denies abdominal pain, Denies diarrhea, Denies loss of appetite, Denies nausea, Denies vomiting Genitourinary: Denies dysuria, Denies hematuria, Denies urgency, Denies urinary frequency Musculoskeletal: Denies myalgias Integumentary: Denies pruritus, Denies rash, Denies wounds Neurological: Denies change in mentation, Denies change in speech, Denies numbness, Denies weakness Psychiatric: Denies anxiety, Denies depression Endocrine: Denies fatigue, Denies weight change Past Medical History Past Medical History: Diabetes Mellitus, GERD/Reflux, Hyperlipidemia, Hypertension, Skin Disorder, Thyroid Disorder Additional Past Medical History / Comment(s): migraines, arthritis, itchy sores on back, History of Any Multi-Drug Resistant Organisms: None Reported Past Surgical History: Cholecystectomy, Joint Replacement, Tonsillectomy, Tubal Ligation Additional Past Surgical History / Comment(s): nik knee replacement, nik cataracts Past Anesthesia/Blood Transfusion Reactions: Motion Sickness Additional Past Anesthesia/Blood Transfusion Reaction / Comm: hard time waking up and SOB when waking up Past Psychological History: Depression Smoking Status: Current some day smoker Past Alcohol Use History: None Reported Additional Past Alcohol Use History / Comment(s): Patient is a smoker one to 2 packs per day for greater than 50 years. She denies any marijuana, illicit drug use or alcohol use. She denies any recent travel. She lives at home with her granddaughter and they're in is a dog and a cat in the home. Past Drug Use History: None Reported - Past Family History Mother Family Medical History: No Reported History Medications and Allergies Home Medications Medication Instructions Recorded Confirmed Type Levothyroxine Sodium [Synthroid] 112 mcg PO DAILY 10/26/15 03/02/19 History Omeprazole 20 mg PO DAILY 10/26/15 03/02/19 History Simvastatin [Zocor] 20 mg PO HS 10/26/15 03/02/19 History Albuterol Sulfate [Proair Hfa] 2 puff INHALATION RT-QID PRN 09/03/18 03/02/19 History DULoxetine HCL [Cymbalta] 60 mg PO DAILY 09/03/18 03/02/19 History Diltiazem HCl [Diltiazem 24Hr ER] 120 mg PO DAILY 09/03/18 03/02/19 History Insulin Degludec [Tresiba] 18 units SQ HS 09/03/18 03/02/19 History Insulin Degludec [Tresiba] 38 units SQ QAM 09/03/18 03/02/19 History Pregabalin [Lyrica] 100 mg PO BID 09/03/18 03/02/19 History Albuterol Nebulized [Ventolin 2.5 mg INHALATION RT-QID PRN 01/05/19 03/02/19 History Nebulized] Insulin Lispro [humaLOG Kwikpen] 6 unit SQ AC-TID 01/05/19 03/02/19 History Apixaban [Eliquis] 5 mg PO BID 37 Days #88 tab 01/09/19 03/02/19 Rx Budesonide-Formot 160-4.5 Mcg 2 puff INHALATION RT-BID 03/02/19 03/02/19 History [Symbicort 160-4.5 Mcg Inhaler] Fluticasone/Vilanterol [Breo 1 puff INHALATION RT-DAILY 03/02/19 03/02/19 History Ellipta 200-25 Mcg INH] Allergies Allergy/AdvReac Type Severity Reaction Status Date / Time No Known Allergies Allergy Verified 03/02/19 18:05 Physical Exam Vitals: Vital Signs Temp Pulse Pulse Resp BP BP Pulse Ox 03/03/19 04:35 99.1 F 98 20 147/67 100 03/03/19 04:00 98.9 F 100 20 139/61 100 03/03/19 02:34 98.5 F 104 H 20 148/66 99 03/03/19 02:04 98.4 F 104 H 22 144/67 98 03/03/19 01:54 98.7 F 102 H 18 163/73 99 03/03/19 00:00 98.6 F 100 22 141/60 97 03/02/19 23:43 98.3 F 105 H 20 135/60 97 03/02/19 21:36 98.9 F 99 22 129/60 98 03/02/19 21:20 97 03/02/19 21:06 98.3 F 101 H 22 113/58 98 03/02/19 20:56 98.7 F 102 H 22 128/58 99 03/02/19 20:00 98.2 F 101 H 22 121/57 98 03/02/19 18:32 98.8 F 112 H 22 110/51 94 L 03/02/19 18:24 98.8 F 112 H 22 110/51 94 L 03/02/19 16:52 112 H 28 H 138/72 93 L 03/02/19 16:14 18 03/02/19 15:30 101.1 F H 112 H 18 112/67 97 Intake and Output 03/02/19 03/03/19 03/03/19 22:59 06:59 14:59 Intake Total 0 620 Output Total 1700 Balance 0 -1080 Intake: Blood Product 0 620 Rc As-1 Unit 0 310 [id number] Rc As-1 Unit 310 [id number] Output: Urine 1700 Other: Voiding Method Toilet Toilet # Voids 1 Weight 99.609 kg 97.6 kg Gen: This is a 78-year-old female. Patient is resting in bed sleeping arouses easily to verbal stimuli. HEENT: Head is atraumatic, normocephalic. Pupils equal, round. Sclerae is anicteric. Oral mucous membranes are moist. NECK: Supple. No JVD. No lymphadenopathy. No thyromegaly. LUNGS: Decreased breath sounds with expiratory wheezing. No intercostal retract ions. HEART: Regular rate and rhythm. No murmur. ABDOMEN: Soft. Bowel sounds are present. No masses. No tenderness. EXTREMITIES: Trace pedal edema. No calf tenderness. Dorsalis pedis +2 bilaterally. NEUROLOGICAL: Patient is awake, alert and oriented x3. Cranial nerves 2 through 12 are grossly intact. Results Results: Laboratory Results WBC 11.8 k/uL (3.8-10.6) H 03/03/19 07:44 RBC 3.26 m/uL (3.80-5.40) L 03/03/19 07:44 Hgb 7.6 gm/dL (11.4-16.0) L D 03/03/19 07:44 Hct 24.8 % (34.0-46.0) L 03/03/19 07:44 MCV 76.1 fL (80.0-100.0) L 03/03/19 07:44 MCH 23.3 pg (25.0-35.0) L 03/03/19 07:44 MCHC 30.6 g/dL (31.0-37.0) L 03/03/19 07:44 RDW 17.1 % (11.5-15.5) H 03/03/19 07:44 Plt Count 186 k/uL (150-450) 03/03/19 07:44 Neutrophils % 66 % 03/03/19 07:44 Lymphocytes % 20 % 03/03/19 07:44 Monocytes % 9 % 03/03/19 07:44 Eosinophils % 2 % 03/03/19 07:44 Basophils % 1 % 03/03/19 07:44 Neutrophils # 7.9 k/uL (1.3-7.7) H 03/03/19 07:44 Lymphocytes # 2.3 k/uL (1.0-4.8) 03/03/19 07:44 Monocytes # 1.1 k/uL (0-1.0) H 03/03/19 07:44 Eosinophils # 0.2 k/uL (0-0.7) 03/03/19 07:44 Basophils # 0.1 k/uL (0-0.2) 03/03/19 07:44 Hypochromasia Marked 03/03/19 07:44 Poikilocytosis Marked 03/03/19 07:44 Anisocytosis Slight 03/03/19 07:44 Microcytosis Slight 03/03/19 07:44 PT 11.1 sec (9.0-12.0) 03/02/19 15:56 INR 1.1 (<1.2) 03/02/19 15:56 APTT 24.2 sec (22.0-30.0) 03/02/19 15:56 Sodium 138 mmol/L (137-145) 03/03/19 07:44 Potassium 3.6 mmol/L (3.5-5.1) 03/03/19 07:44 Chloride 103 mmol/L (98-107) 03/03/19 07:44 Carbon Dioxide 29 mmol/L (22-30) 03/03/19 07:44 Anion Gap 6 mmol/L 03/03/19 07:44 BUN 9 mg/dL (7-17) 03/03/19 07:44 Creatinine 0.50 mg/dL (0.52-1.04) L 03/03/19 07:44 Est GFR (CKD-EPI)AfAm >90 (>60 ml/min/1.73 sqM) 03/03/19 07:44 Est GFR (CKD-EPI)NonAf >90 (>60 ml/min/1.73 sqM) 03/03/19 07:44 Glucose 165 mg/dL (74-99) H 03/03/19 07:44 POC Glucose (mg/dL) 201 mg/dL (75-99) H 03/03/19 06:08 POC Glu Materials Management Manager ID Lamont Smith 03/03/19 06:08 Lactic Ac Sepsis Rflx Y 03/02/19 16:34 Plasma Lactic Acid Jonathon 1.2 mmol/L (0.7-2.0) 03/02/19 19:48 Calcium 8.2 mg/dL (8.4-10.2) L 03/03/19 07:44 Total Bilirubin 1.3 mg/dL (0.2-1.3) 03/02/19 15:56 AST 16 U/L (14-36) 03/02/19 15:56 ALT 17 U/L (9-52) 03/02/19 15:56 Alkaline Phosphatase 79 U/L (38-126) 03/02/19 15:56 Creatine Kinase 23 U/L (30-135) L 03/02/19 15:56 Troponin I <0.012 ng/mL (0.000-0.034) 03/03/19 03:50 NT-Pro-B Natriuret Pep 452 pg/mL 03/02/19 15:56 Total Protein 5.6 g/dL (6.3-8.2) L 03/02/19 15:56 Albumin 3.3 g/dL (3.5-5.0) L 03/02/19 15:56 Urine Color Yellow 03/02/19 16:42 Urine Appearance Cloudy (Clear) H 03/02/19 16:42 Urine pH 5.5 (5.0-8.0) 03/02/19 16:42 Ur Specific [place] 1.026 (1.001-1.035) 03/02/19 16:42 Urine Protein 1+ (Negative) H 03/02/19 16:42 Urine Glucose (UA) Negative (Negative) 03/02/19 16:42 Urine Ketones Trace (Negative) H 03/02/19 16:42 Urine Blood Negative (Negative) 03/02/19 16:42 Urine Nitrite Negative (Negative) 03/02/19 16:42 Urine Bilirubin Negative (Negative) 03/02/19 16:42 Urine Urobilinogen 3.0 mg/dL (<2.0) 03/02/19 16:42 Ur Leukocyte Esterase Negative (Negative) 03/02/19 16:42 Urine RBC <1 /hpf (0-5) 03/02/19 16:42 Urine WBC 3 /hpf (0-5) 03/02/19 16:42 Ur Squamous Epith Cells 1 /hpf (0-4) 03/02/19 16:42 Urine Bacteria Rare /hpf (None) H 03/02/19 16:42 Hyaline Casts 11 /lpf (0-2) H 03/02/19 16:42 Urine Mucus Many /hpf (None) H 03/02/19 16:42 Stool Occult Blood Positive (Negative) H 03/02/19 16:42 Blood Type B Positive 03/02/19 15:56 Blood Type Confirm B Positive 03/02/19 17:36 Blood Type Recheck No Previous Record 03/02/19 15:56 Bld Type Recheck Status CABO Indicated 03/02/19 15:56 Antibody Screen POSITIVE 03/02/19 15:56 Antibody Identification Anti-E 03/02/19 15:56 Direct Antiglob Test Negative 03/02/19 15:56 Crossmatch See Detail 03/02/19 15:56 Spec Expiration Date 03/05/2019 9949 03/02/19 15:56 CBC & Chem 7: 03/03/19 07:44 03/03/19 07:44 Labs: Abnormal Lab Results - Last 24 Hours (Table) 03/02/19 03/02/19 03/02/19 Range/Units 15:56 15:56 15:56 WBC 15.3 H (3.8-10.6) k/uL RBC 2.74 L (3.80-5.40) m/uL Hgb 5.8 L* D (11.4-16.0) gm/dL Hct 19.8 L* (34.0-46.0) % MCV 72.2 L D (80.0-100.0) fL MCH 21.3 L (25.0-35.0) pg MCHC 29.5 L (31.0-37.0) g/dL RDW 16.2 H (11.5-15.5) % Neutrophils # 11.3 H (1.3-7.7) k/uL Monocytes # 1.6 H (0-1.0) k/uL Sodium 135 L (137-145) mmol/L Creatinine (0.52-1.04) mg/dL Glucose 210 H (74-99) mg/dL POC Glucose (mg/dL) (75-99) mg/dL Plasma Lactic Acid Jonathon 2.2 H* (0.7-2.0) mmol/L Calcium (8.4-10.2) mg/dL Creatine Kinase 23 L (30-135) U/L Total Protein 5.6 L (6.3-8.2) g/dL Albumin 3.3 L (3.5-5.0) g/dL Urine Appearance (Clear) Urine Protein (Negative) Urine Ketones (Negative) Urine Bacteria (None) /hpf Hyaline Casts (0-2) /lpf Urine Mucus (None) /hpf Stool Occult Blood (Negative) Crossmatch 03/02/19 03/02/19 03/02/19 Range/Units 15:56 16:42 16:42 WBC (3.8-10.6) k/uL RBC (3.80-5.40) m/uL Hgb (11.4-16.0) gm/dL Hct (34.0-46.0) % MCV (80.0-100.0) fL MCH (25.0-35.0) pg MCHC (31.0-37.0) g/dL RDW (11.5-15.5) % Neutrophils # (1.3-7.7) k/uL Monocytes # (0-1.0) k/uL Sodium (137-145) mmol/L Creatinine (0.52-1.04) mg/dL Glucose (74-99) mg/dL POC Glucose (mg/dL) (75-99) mg/dL Plasma Lactic Acid Jonathon (0.7-2.0) mmol/L Calcium (8.4-10.2) mg/dL Creatine Kinase (30-135) U/L Total Protein (6.3-8.2) g/dL Albumin (3.5-5.0) g/dL Urine Appearance Cloudy H (Clear) Urine Protein 1+ H (Negative) Urine Ketones Trace H (Negative) Urine Bacteria Rare H (None) /hpf Hyaline Casts 11 H (0-2) /lpf Urine Mucus Many H (None) /hpf Stool Occult Blood Positive H (Negative) Crossmatch See Detail 03/02/19 03/03/19 03/03/19 Range/Units 20:06 03:40 06:08 WBC (3.8-10.6) k/uL RBC (3.80-5.40) m/uL Hgb (11.4-16.0) gm/dL Hct (34.0-46.0) % MCV (80.0-100.0) fL MCH (25.0-35.0) pg MCHC (31.0-37.0) g/dL RDW (11.5-15.5) % Neutrophils # (1.3-7.7) k/uL Monocytes # (0-1.0) k/uL Sodium (137-145) mmol/L Creatinine (0.52-1.04) mg/dL Glucose (74-99) mg/dL POC Glucose (mg/dL) 226 H 221 H 201 H (75-99) mg/dL Plasma Lactic Acid Jonathon (0.7-2.0) mmol/L Calcium (8.4-10.2) mg/dL Creatine Kinase (30-135) U/L Total Protein (6.3-8.2) g/dL Albumin (3.5-5.0) g/dL Urine Appearance (Clear) Urine Protein (Negative) Urine Ketones (Negative) Urine Bacteria (None) /hpf Hyaline Casts (0-2) /lpf Urine Mucus (None) /hpf Stool Occult Blood (Negative) Crossmatch 03/03/19 03/03/19 Range/Units 07:44 07:44 WBC 11.8 H (3.8-10.6) k/uL RBC 3.26 L (3.80-5.40) m/uL Hgb 7.6 L D (11.4-16.0) gm/dL Hct 24.8 L (34.0-46.0) % MCV 76.1 L (80.0-100.0) fL MCH 23.3 L (25.0-35.0) pg MCHC 30.6 L (31.0-37.0) g/dL RDW 17.1 H (11.5-15.5) % Neutrophils # 7.9 H (1.3-7.7) k/uL Monocytes # 1.1 H (0-1.0) k/uL Sodium (137-145) mmol/L Creatinine 0.50 L (0.52-1.04) mg/dL Glucose 165 H (74-99) mg/dL POC Glucose (mg/dL) (75-99) mg/dL Plasma Lactic Acid Jonathon (0.7-2.0) mmol/L Calcium 8.2 L (8.4-10.2) mg/dL Creatine Kinase (30-135) U/L Total Protein (6.3-8.2) g/dL Albumin (3.5-5.0) g/dL Urine Appearance (Clear) Urine Protein (Negative) Urine Ketones (Negative) Urine Bacteria (None) /hpf Hyaline Casts (0-2) /lpf Urine Mucus (None) /hpf Stool Occult Blood (Negative) Crossmatch Assessment and Plan Plan: This is a 78-year-old female presented to the hospital with complains mostly of abdominal discomfort and belching heartburn and diarrhea. Diarrhea has subsequently resolved most likely secondary to SIRS or sepsis with possible gastroenteritis. Patient denies having any nausea vomiting, no bowel movement since admission. Patient also presented with a GI bleed with positive occult stool and hemoglobin of 5.8 status post transfusion of 2 units of packed RBCs with repeat hemoglobin of 7.6. Patient also has cough and expiratory wheezing with possible COPD exacerbation, bronchitis. Chest x-ray showing heart failure and small pleural effusions. Patient is currently on cefepime and vancomycin. Continue supportive care. Further recommendations as patient progresses. The above dictated assessment and findings were discussed with Dr. Montgomery. The impression and plan of care have been directed as dictated. Nila Betancourt nurse practitioner acting as scribe for Dr. Montgomery.
--- NOTE | 2019-03-03 10:03 | P.PN ---
Subjective Progress Note Date: 03/03/19 Principal diagnosis: Anemia, sepsis Patient was seen and examined. No acute events overnight. Patient reports complete resolution of her burping/belching. She has no complaints this morning. She denies any chest pain, shortness breath or palpitations. No nausea or vomiting. No fever or chills. No abdominal pain. No bowel movement this morning. No dysuria. Objective - Vital Signs Vital signs: Vital Signs Temp 99.1 F 03/03/19 04:35 Pulse 98 03/03/19 04:35 Resp 20 03/03/19 04:35 BP 147/67 03/03/19 04:35 Pulse Ox 100 03/03/19 04:35 Intake & Output 03/02/19 03/03/19 03/03/19 18:59 06:59 18:59 Intake Total 620 Output Total 1700 Balance -1080 Weight 99.609 kg 97.6 kg Intake: Blood Product 620 Rc As-1 Unit 310 [id number] Rc As-1 Unit 310 [id number] Output: Urine 1700 Other: Voiding Method Toilet # Voids 1 - Exam General: [non toxic], [no distress], [appears at stated age] Derm: [warm], [dry] Head: [atraumatic], [normocephalic], [symmetric] Eyes: [EOMI], [no lid lag], [anicteric sclera] Mouth: [no lip lesion], [mucus membranes moist] Cardiovascular: [S1S2 reg], [tachycardia], [positive DP pulse bilateral], Lungs: [Decreased breath sounds bilateral], [no rhonchi, no rales] , [no accessory muscle use] Abdominal: [soft], [ nontender to palpation], [no guarding], [no appreciable organomegaly] Ext: [no gross muscle atrophy], [no edema], [no contractures] Neuro: [no focal neuro deficits] Psych: [Alert], [oriented], [appropriate affect] - Labs CBC & Chem 7: 03/03/19 07:44 03/03/19 07:44 Labs: Abnormal Lab Results - Last 24 Hours (Table) 03/02/19 03/02/19 03/02/19 Range/Units 15:56 15:56 15:56 WBC 15.3 H (3.8-10.6) k/uL RBC 2.74 L (3.80-5.40) m/uL Hgb 5.8 L* D (11.4-16.0) gm/dL Hct 19.8 L* (34.0-46.0) % MCV 72.2 L D (80.0-100.0) fL MCH 21.3 L (25.0-35.0) pg MCHC 29.5 L (31.0-37.0) g/dL RDW 16.2 H (11.5-15.5) % Neutrophils # 11.3 H (1.3-7.7) k/uL Monocytes # 1.6 H (0-1.0) k/uL Sodium 135 L (137-145) mmol/L Creatinine (0.52-1.04) mg/dL Glucose 210 H (74-99) mg/dL POC Glucose (mg/dL) (75-99) mg/dL Plasma Lactic Acid Jonathon 2.2 H* (0.7-2.0) mmol/L Calcium (8.4-10.2) mg/dL Creatine Kinase 23 L (30-135) U/L Total Protein 5.6 L (6.3-8.2) g/dL Albumin 3.3 L (3.5-5.0) g/dL Urine Appearance (Clear) Urine Protein (Negative) Urine Ketones (Negative) Urine Bacteria (None) /hpf Hyaline Casts (0-2) /lpf Urine Mucus (None) /hpf Stool Occult Blood (Negative) Crossmatch 03/02/19 03/02/19 03/02/19 Range/Units 15:56 16:42 16:42 WBC (3.8-10.6) k/uL RBC (3.80-5.40) m/uL Hgb (11.4-16.0) gm/dL Hct (34.0-46.0) % MCV (80.0-100.0) fL MCH (25.0-35.0) pg MCHC (31.0-37.0) g/dL RDW (11.5-15.5) % Neutrophils # (1.3-7.7) k/uL Monocytes # (0-1.0) k/uL Sodium (137-145) mmol/L Creatinine (0.52-1.04) mg/dL Glucose (74-99) mg/dL POC Glucose (mg/dL) (75-99) mg/dL Plasma Lactic Acid Jonathon (0.7-2.0) mmol/L Calcium (8.4-10.2) mg/dL Creatine Kinase (30-135) U/L Total Protein (6.3-8.2) g/dL Albumin (3.5-5.0) g/dL Urine Appearance Cloudy H (Clear) Urine Protein 1+ H (Negative) Urine Ketones Trace H (Negative) Urine Bacteria Rare H (None) /hpf Hyaline Casts 11 H (0-2) /lpf Urine Mucus Many H (None) /hpf Stool Occult Blood Positive H (Negative) Crossmatch See Detail 03/02/19 03/03/19 03/03/19 Range/Units 20:06 03:40 06:08 WBC (3.8-10.6) k/uL RBC (3.80-5.40) m/uL Hgb (11.4-16.0) gm/dL Hct (34.0-46.0) % MCV (80.0-100.0) fL MCH (25.0-35.0) pg MCHC (31.0-37.0) g/dL RDW (11.5-15.5) % Neutrophils # (1.3-7.7) k/uL Monocytes # (0-1.0) k/uL Sodium (137-145) mmol/L Creatinine (0.52-1.04) mg/dL Glucose (74-99) mg/dL POC Glucose (mg/dL) 226 H 221 H 201 H (75-99) mg/dL Plasma Lactic Acid Jonathon (0.7-2.0) mmol/L Calcium (8.4-10.2) mg/dL Creatine Kinase (30-135) U/L Total Protein (6.3-8.2) g/dL Albumin (3.5-5.0) g/dL Urine Appearance (Clear) Urine Protein (Negative) Urine Ketones (Negative) Urine Bacteria (None) /hpf Hyaline Casts (0-2) /lpf Urine Mucus (None) /hpf Stool Occult Blood (Negative) Crossmatch 03/03/19 03/03/19 Range/Units 07:44 07:44 WBC 11.8 H (3.8-10.6) k/uL RBC 3.26 L (3.80-5.40) m/uL Hgb 7.6 L D (11.4-16.0) gm/dL Hct 24.8 L (34.0-46.0) % MCV 76.1 L (80.0-100.0) fL MCH 23.3 L (25.0-35.0) pg MCHC 30.6 L (31.0-37.0) g/dL RDW 17.1 H (11.5-15.5) % Neutrophils # 7.9 H (1.3-7.7) k/uL Monocytes # 1.1 H (0-1.0) k/uL Sodium (137-145) mmol/L Creatinine 0.50 L (0.52-1.04) mg/dL Glucose 165 H (74-99) mg/dL POC Glucose (mg/dL) (75-99) mg/dL Plasma Lactic Acid Jonathon (0.7-2.0) mmol/L Calcium 8.2 L (8.4-10.2) mg/dL Creatine Kinase (30-135) U/L Total Protein (6.3-8.2) g/dL Albumin (3.5-5.0) g/dL Urine Appearance (Clear) Urine Protein (Negative) Urine Ketones (Negative) Urine Bacteria (None) /hpf Hyaline Casts (0-2) /lpf Urine Mucus (None) /hpf Stool Occult Blood (Negative) Crossmatch Assessment and Plan Assessment: Anemia likely due to blood loss from GI tract due to Eliquis use Sepsis with unknown source of infection Diabetes mellitus with hyperglycemia Recent diagnosis of right lower extremity DVT and PE COPD on 3 L home O2 Hypertension Fibromyalgia Hemoglobin 5.8-7.6 post 2 unit PRBC. FOBT positive. Likely due to recent start and Eliquis. Plans: CBC every 12 hours. Telemetry monitoring. Protonix IV. Follow GI consultation. Patient meets sepsis criteria. She has leukocytosis, 15.3-11.8. Tmax 101.1 Fahrenheit. Patient is tachycardic. Lactic acid of 2.2-within normal limits. UA negative for nitrite or leukocyte esterase. Chest x-ray shows pleural effusion. Abdomen exam is benign. Plans: Start broad-spectrum antibiotics with vancomycin and cefepime IV. Tylenol as needed for fever or chills. Continue normal saline at 80 mL per hour. Follow blood culture. Follow sputum culture. Follow ID consultation. [id number] glucose 201. Plans: Hold home dose of insulin due to nothing by mouth. Insulin sliding scale. Regular Accu-Cheks. Hypoglycemic precautions. Plans: Hold Eliquis due to GI bleed. Stable. Plans: DuoNeb as needed for shortness of breath and wheezing. BP 147/67. Plans: Continue diltiazem. Monitor vitals, adjust medication as necessary. Plans: Continue Cymbalta. [Hemoglobin improved with blood transfusion. GI consultation pending. Continues to meet sepsis criteria, on broad-spectrum IV antibiotics, cultures are pending, ID on board. She is pending clinical improvement. Likely DC in 2- 3 days.]
--- NOTE | 2019-03-03 10:23 | ECHOF ---
Referral Reason:LV Function MEASUREMENTS -------- HEIGHT: 157.5 cm WEIGHT: 99.3 kg BP: 139/61 RVIDd: 2.6 cm (< 3.3) IVSd: 1.3 cm (0.6 - 1.1) LVIDd: 4.4 cm (3.9 - 5.3) LVPWd: 1.6 cm (0.6 - 1.1) IVSs: 1.8 cm LVIDs: 3.3 cm LVPWs: 1.7 cm LA Diam: 4.1 cm (2.7 - 3.8) LAESV Index (A-L): 27.94 ml/m Ao Diam: 2.9 cm (2.0 - 3.7) AV Cusp: 1.6 cm (1.5 - 2.6) LA Diam: 3.8 cm (2.7 - 3.8) MV EXCURSION: 21.475 mm (> 18.000) MV EF SLOPE: 90 mm/s (70 - 150) EPSS: 0.7 cm MV E Juevnal: 0.71 m/s MV DecT: 186 ms MV A Juvenal: 0.96 m/s MV E/A Ratio: 0.74 RAP: 5.00 mmHg RVSP: 16.53 mmHg TAPSE: 26.03 mm FINDINGS -------- Sinus rhythm. This was a technically adequate study. The left ventricular size is normal. There is mild concentric left ventricular hypertrophy. Overa ll left ventricular systolic function is normal with, an EF between 55 - 60 %. The diastolic fillin g pattern is normal for the age of the patient 10.67. The right ventricle is normal in size. The left atrium is mildly dilated. LA is midly dilated 29-33ml/m2. The right atrial size is normal. There is mild aortic valve sclerosis. There is no evidence of aortic regurgitation. Mild mitral annular calcification present. Mild mitral regurgitation is present. Mild tricuspid regurgitation present. There is no evidence of pulmonary hypertension. The right v entricular systolic pressure, as measured by Doppler, is 16.53mmHg. The pulmonic valve was not well visualized. The aortic root size is normal. Echo free space represents a pericardial fat pad. CONCLUSIONS -------- 1. Sinus rhythm. 2. This was a technically adequate study. 3. The left ventricular size is normal. 4. There is mild concentric left ventricular hypertrophy. 5. Overall left ventricular systolic function is normal with, an EF between 55 - 60 %. 6. The diastolic filling pattern is normal for the age of the patient 10.67 7. The right ventricle is normal in size. 8. The left atrium is mildly dilated. 9. LA is midly dilated 29-33ml/m2. 10. The right atrial size is normal. 11. There is mild aortic valve sclerosis. 12. Mild mitral annular calcification present. 13. Mild mitral regurgitation is present. 14. Mild tricuspid regurgitation present. 15. There is no evidence of pulmonary hypertension. 16. The right ventricular systolic pressure, as measured by Doppler, is 16.53mmHg. 17. The pulmonic valve was not well visualized. 18. The aortic root size is normal. 19. Echo free space represents a pericardial fat pad. EYEDOTTER: Sirisha Roberts RDCS
[2019-03-03 12:21] LABS: Glucose,Whole Blood 151 mg/dL (75-99)
--- NOTE | 2019-03-03 13:38 | CDI ---
Documentation Clarification Form Date: 03/03/2019 1:28:15 PM From: Elif Alvarez RN, CCDS Admit Date: 03/02/2019 5:04:00 PM Patient Name: Ashley Juarez Visit Number: [id number] Discharge Date: ATTENTION: The Clinical Documentation Specialists (CDI) and [facility] Coding Staff appreciate your assistance in clarifying documentation. Please respond to the clarification below the line at the bottom and electronically sign. The CDI & [facility] Coding staff will review the response and follow-up if needed. Please note: Queries are made part of the Legal Health Record. If you have any questions, please contact the author of this message via ITS. Dr. Margi Choudhary A diagnosis of anemia lacks specificity to accurately reflect your patients severity of condition and clarification is needed. History/Risk Factors: Diabetes Mellitus, Hypertension Clinical indicators: 78-year-old female present with sob, burning in the chest. She has had several episodes of diarrhea with fecal occult blood being positive Hemoglobin: 5.8, 7.6 Hematocrit: 19.8 24.8 Treatment: 2 units of PRBCs transfused, monitoring CBC In order to capture the severity of condition, please clarify the type of anemia and etiology if known: Acute blood loss anemia Acute on chronic blood loss anemia Chronic blood loss anemia Unable to determine Other, please specify (Last Revision: January 2017) acute blood loss MTDD
--- NOTE | 2019-03-03 13:58 | CDI ---
Documentation Clarification Form Date: 03/03/2019 1:40:18 PM From: Elif Alvarez RN, CCDS Admit Date: 03/02/2019 5:04:00 PM Patient Name: Ashley Juarez Visit Number: [id number] Discharge Date: ATTENTION: The Clinical Documentation Specialists (CDI) and [facility] Coding Staff appreciate your assistance in clarifying documentation. Please respond to the clarification below the line at the bottom and electronically sign. The CDI & [facility] Coding staff will review the response and follow-up if needed. Please note: Queries are made part of the Legal Health Record. If you have any questions, please contact the author of this message via ITS. Dr. Margi Choudhary The patient presented with the shortness of breath and burning in the chest. History/Risk Factors: COPD, Hypertension, Right lower extremity DVT, and Pulmonary Embolism Tobacco use: Current same day smoker Home oxygen: 3/L NC Clinical Indicators: 78-year-old with known past medical history of COPD. In the History and Physical you have indicated she is on home O2 3/L NC. Her lungs have decreased breath sounds bilaterally and she complains of cough with yellow sputum. Vital signs: 112/67 112 18 101.1 97 % RA Pulse oximetry: 93 % RA 94% 4/L NC, 96/% 2/L NC (03/03/19) Chest X-ray: (03/02) correlate for congestive heart failure, there are associated pleural effusions Pneumonia not excluded. 03/03: Cardiomegaly, suspect a component of interstitial edema. Small pleural effusions. Treatment: Monitor O2 Sat's Breathing TX: Ventolin Nebulized per orders In your professional opinion, can you please clarify if these findings signify one of the following conditions? Acute Respiratory Failure Acute on Chronic Respiratory Failure Chronic Respiratory Failure Other Diagnosis, please specify Unable to determine Specificity: If known, further specify (if known): With hypercapnia? (pCO2 >50 and pH <7.35) With hypoxia? (pO2 <60 mm Hg or SpO2 <91% on room air) (Last Query Form Revision: December 2018) chronic resp failure MTDD
[2019-03-03 16:43] LABS: Glucose,Whole Blood 135 mg/dL (75-99)
[2019-03-03] MEDS ORDERED: PEG 3350-NA SULF,BICARB,CL/KCL 4,000 ML BOTTLE PO ONE (17:00)
[2019-03-03] MEDS: ATORVASTATIN 10 MG TAB PO SCH (20:00)
[2019-03-03 21:12] LABS: Glucose,Whole Blood 140 mg/dL (75-99)
[2019-03-03 21:39] LABS: Anisocytosis Slight; HGB 7.6 gm/dL (11.4-16.0); Hypochromasia Marked; MCH 22.8 pg (25.0-35.0); MCHC 30.3 g/dL (31.0-37.0); MCV 75.5 fL (80.0-100.0); Mean Platelet Volume 7.3; Microcytosis Moderate; Platelet Count 207 k/uL (150-450); Poikilocytosis Marked; RBC 3.31 m/uL (3.80-5.40); RDW 18.6 % (11.5-15.5); WBC 11.8 k/uL (3.8-10.6)
--- NOTE | 2019-03-03 21:53 | P.CON ---
Consult Note - . Consult date: 03/03/19 Assessment/Plan:: This is a 78-year-old female who presented to [facility] due to multiple symptoms including burping and belching with symptoms of heartburn, diarrhea with 3-4 bowel movements daily that were loose and dark brown. She denies any blood in her stool or melena. Patient reports some chills but denies fever. She reports a cough that has been ongoing for the past 2 weeks productive of yellow sputum. Patient endorses some shortness of breath but at baseline. She is on home O2 at 2 L nasal cannula. She also reports a decreased appetite over the past 2 days. Patient reports smoking 1-2 packs of cigarettes daily for greater than 50 years. She denies any headache, lower extremity edema, nausea or vomiting, chest pain, palpitations, changes in urination. She denies any dizziness, numbness/weakness/tingling of the extremities. On presentation, patient was febrile at 101.1 with heart rate of 112 and leukocytosis of 15.3 meeting SIRS criteria. Hemoglobin was 5.8. She has had a colonoscopy greater than 10 years ago. Coagulation panel was negative. CMP showed sodium of 135, glucose of 210, albumin 3.3. Lactic acid was 2.2 and repeat came down to 1.2. Troponin was less than 0.012 on 3 draws. Urinalysis showed trace ketones. Stool for occult blood was positive. Chest x- ray showed associated pleural effusions. Blood culture is in progress and sputum cultures on collected. GI consult also in place. Patient states that she has not had a bowel movement since admission. She continues to have chills but no documented fevers since admission. She states she feels "super tired" and was not able to sleep at night. The patient was started on cefepime and vancomycin. Repeat chest x-ray this morning find similar findings of cardiomegaly, interstitial edema, small pleural effusions. She is status post transfusion of 2 units packed RBCs with repeat hemoglobin of 7.6. Please see the consult note is dictated by nurse practitioner Nila Serafin. 78-year-old woman presents to Hospital with a history of what appears to be fevers and chills associated with increasing shortness of breath some gasping respirations resulting in air gulping burping and belching as well as some loose stools of 3-4 times per day. Presents hospital feeling poorly with evidence of exacerbation of COPD, significant weakness acute blood loss anemia and fever. She is not feeling somewhat better but still not well. 2 units of packed red cells deathly helped her feel better. She is less short of breath but is still actively wheezing. patient is having exacerbation of her COPD. possibly also some congestive heart failure we will de-escalate antibiotic therapy, no evidence of MRSA and vancomycin is discontinued. Await further cultures to further evaluate need for further cefepime. I believe gastroenterology evaluation as occurring as to the etiology of her acute blood loss anemia which appears to be gastrointestinal in nature. She still feels quite weak after 2 units of packed red cells. The fever has several potentials including the acute pulmonary event, however acute blood loss anemia can also be affiliated with fever. I agree with evaluation, assessment and plan as dictated by nurse practitioner Mrs. Betancourt.
[2019-03-03] MEDS ORDERED: ACETAMINOPHEN TAB 325 MG TAB ONE (23:39)
[2019-03-04] MEDS: CEFEPIME 2 GM in SODIUM CHLORIDE 0.9% 100 ML IVPB SCH ×4 (05:47→23:17)
[2019-03-04] MEDS ORDERED: LIDOCAINE 1% 20 ML VIAL (10MG/ML) FOR IV START INTRADERMA PRN (06:00)
[2019-03-04 06:25] LABS: Glucose,Whole Blood 150 mg/dL (75-99)
--- NOTE | 2019-03-04 07:07 | P.CONS ---
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 She reports symptoms of burping, belching and uncontrolled heartburn. She also reports 2 days of loose stools describing 3-4 loose dark brown bowel movements daily. She denies any melanotic stool or blood in her stool. The patient has no history of GI bleed. She had stool testing which was positive for occult blood. She reports that her last colonoscopy was over 10 years ago. In addition to her symptoms patient also reports decreased appetite prior to presentation. Found to have a hemoglobin of 5.4 on admission subsequently transfused to 7.6. Currently anticoagulation therapy is being held. The patient is seen sitting bedside denying any other concerns at this time. Review of Systems REVIEW OF SYSTEMS: CONSTITUTIONAL: Denies any fevers, chills, weight change or fatigue. CARDIOVASCULAR: Denies any chest pain, palpitations high or low blood pressures RESPIRATORY: Denies any hemoptysis or cough. GENITOURINARY: No dysuria or hematuria. MUSCULOSKELETAL: No weakness reported. SKIN: Denies any new rashes or lesions, jaundice or pallor. PSYCHIATRIC: Denies any depression or anxiety. NEUROLOGY: Denies headache, denies any new focal deficits. EARS/NOSE/THROAT: No recent hearing change, congestion, nasal discharge or sore throat. EYES: No pain in eyes, discharge or change in vision. GASTROINTESTINAL: As per HPI. Past Medical History Past Medical History: Diabetes Mellitus, GERD/Reflux, Hyperlipidemia, Hypertension, Skin Disorder, Thyroid Disorder Additional Past Medical History / Comment(s): migraines, arthritis, itchy sores on back, History of Any Multi-Drug Resistant Organisms: None Reported Past Surgical History: Cholecystectomy, Joint Replacement, Tonsillectomy, Tubal Ligation Additional Past Surgical History / Comment(s): nik knee replacement, nik cataracts Past Anesthesia/Blood Transfusion Reactions: Motion Sickness Additional Past Anesthesia/Blood Transfusion Reaction / Comm: hard time waking up and SOB when waking up Past Psychological History: Depression Smoking Status: Current some day smoker Past Alcohol Use History: None Reported Additional Past Alcohol Use History / Comment(s): Patient is a smoker one to 2 packs per day for greater than 50 years. She denies any marijuana, illicit drug use or alcohol use. She denies any recent travel. She lives at home with her granddaughter and they're in is a dog and a cat in the home. Past Drug Use History: None Reported - Past Family History Mother Family Medical History: No Reported History Medications and Allergies Home Medications Medication Instructions Recorded Confirmed Type Levothyroxine Sodium [Synthroid] 112 mcg PO DAILY 10/26/15 03/02/19 History Omeprazole 20 mg PO DAILY 10/26/15 03/02/19 History Simvastatin [Zocor] 20 mg PO HS 10/26/15 03/02/19 History Albuterol Sulfate [Proair Hfa] 2 puff INHALATION RT-QID PRN 09/03/18 03/02/19 History DULoxetine HCL [Cymbalta] 60 mg PO DAILY 09/03/18 03/02/19 History Diltiazem HCl [Diltiazem 24Hr ER] 120 mg PO DAILY 09/03/18 03/02/19 History Insulin Degludec [Tresiba] 18 units SQ HS 09/03/18 03/02/19 History Insulin Degludec [Tresiba] 38 units SQ QAM 09/03/18 03/02/19 History Pregabalin [Lyrica] 100 mg PO BID 09/03/18 03/02/19 History Albuterol Nebulized [Ventolin 2.5 mg INHALATION RT-QID PRN 01/05/19 03/02/19 History Nebulized] Insulin Lispro [humaLOG Kwikpen] 6 unit SQ AC-TID 01/05/19 03/02/19 History Apixaban [Eliquis] 5 mg PO BID 37 Days #88 tab 01/09/19 03/02/19 Rx Budesonide-Formot 160-4.5 Mcg 2 puff INHALATION RT-BID 03/02/19 03/02/19 History [Symbicort 160-4.5 Mcg Inhaler] Fluticasone/Vilanterol [Breo 1 puff INHALATION RT-DAILY 03/02/19 03/02/19 History Ellipta 200-25 Mcg INH] Allergies Allergy/AdvReac Type Severity Reaction Status Date / Time No Known Allergies Allergy Verified 03/02/19 18:05 Physical Exam Vitals: Vital Signs Temp Pulse Pulse Resp BP BP Pulse Ox 03/03/19 16:00 96 20 03/03/19 15:32 98 03/03/19 11:49 98.6 F 95 19 107/60 96 03/03/19 08:00 98.6 F 96 19 112/53 96 03/03/19 04:35 99.1 F 98 20 147/67 100 03/03/19 04:00 98.9 F 100 20 139/61 100 03/03/19 02:34 98.5 F 104 H 20 148/66 99 03/03/19 02:04 98.4 F 104 H 22 144/67 98 03/03/19 01:54 98.7 F 102 H 18 163/73 99 03/03/19 00:00 98.6 F 100 22 141/60 97 03/02/19 23:43 98.3 F 105 H 20 135/60 97 03/02/19 21:36 98.9 F 99 22 129/60 98 03/02/19 21:20 97 03/02/19 21:06 98.3 F 101 H 22 113/58 98 03/02/19 20:56 98.7 F 102 H 22 128/58 99 03/02/19 20:00 98.2 F 101 H 22 121/57 98 03/02/19 18:32 98.8 F 112 H 22 110/51 94 L 03/02/19 18:24 98.8 F 112 H 22 110/51 94 L 03/02/19 16:52 112 H 28 H 138/72 93 L Intake and Output 03/03/19 03/03/19 03/03/19 06:59 14:59 22:59 Intake Total 620 Output Total 1700 Balance -1080 Intake: Blood Product 620 Rc As-1 Unit 310 [id number] Rc As-1 Unit 310 [id number] Output: Urine 1700 Other: Voiding Method Toilet # Voids 1 1 Weight 97.6 kg On physical examination, patient appears comfortable in no apparent distress. HEAD: Normocephalic, atraumatic. EYES: No scleral icterus. No conjunctival injection. MOUTH: No lesions, tongue midline. NECK: Trachea midline, no gross abnormalities. CHEST: Decreased air entry in all lung montoya, no wheezing appreciated. HEART: S1-S2 appreciated, no murmurs appreciated. ABDOMEN: Soft, obese. Bowel sounds are positive. No organomegaly. No guarding or rigidity. EXTREMITIES: No pedal edema. SKIN: No rashes, no jaundice. NEUROLOGIC: Alert and oriented. No focal deficits. Results CBC & Chem 7: 03/03/19 21:25 03/03/19 07:44 Labs: Abnormal Lab Results - Last 24 Hours (Table) 03/02/19 03/02/19 03/02/19 Range/Units 15:56 15:56 16:42 WBC (3.8-10.6) k/uL RBC (3.80-5.40) m/uL Hgb (11.4-16.0) gm/dL Hct (34.0-46.0) % MCV 72.2 L D (80.0-100.0) fL MCH (25.0-35.0) pg MCHC (31.0-37.0) g/dL RDW (11.5-15.5) % Neutrophils # (1.3-7.7) k/uL Monocytes # (0-1.0) k/uL Creatinine (0.52-1.04) mg/dL Glucose (74-99) mg/dL POC Glucose (mg/dL) (75-99) mg/dL Calcium (8.4-10.2) mg/dL Urine Appearance Cloudy H (Clear) Urine Protein 1+ H (Negative) Urine Ketones Trace H (Negative) Urine Bacteria Rare H (None) /hpf Hyaline Casts 11 H (0-2) /lpf Urine Mucus Many H (None) /hpf Stool Occult Blood (Negative) Crossmatch See Detail 03/02/19 03/02/19 03/03/19 Range/Units 16:42 20:06 03:40 WBC (3.8-10.6) k/uL RBC (3.80-5.40) m/uL Hgb (11.4-16.0) gm/dL Hct (34.0-46.0) % MCV (80.0-100.0) fL MCH (25.0-35.0) pg MCHC (31.0-37.0) g/dL RDW (11.5-15.5) % Neutrophils # (1.3-7.7) k/uL Monocytes # (0-1.0) k/uL Creatinine (0.52-1.04) mg/dL Glucose (74-99) mg/dL POC Glucose (mg/dL) 226 H 221 H (75-99) mg/dL Calcium (8.4-10.2) mg/dL Urine Appearance (Clear) Urine Protein (Negative) Urine Ketones (Negative) Urine Bacteria (None) /hpf Hyaline Casts (0-2) /lpf Urine Mucus (None) /hpf Stool Occult Blood Positive H (Negative) Crossmatch 03/03/19 03/03/19 03/03/19 Range/Units 06:08 07:44 07:44 WBC 11.8 H (3.8-10.6) k/uL RBC 3.26 L (3.80-5.40) m/uL Hgb 7.6 L D (11.4-16.0) gm/dL Hct 24.8 L (34.0-46.0) % MCV 76.1 L (80.0-100.0) fL MCH 23.3 L (25.0-35.0) pg MCHC 30.6 L (31.0-37.0) g/dL RDW 17.1 H (11.5-15.5) % Neutrophils # 7.9 H (1.3-7.7) k/uL Monocytes # 1.1 H (0-1.0) k/uL Creatinine 0.50 L (0.52-1.04) mg/dL Glucose 165 H (74-99) mg/dL POC Glucose (mg/dL) 201 H (75-99) mg/dL Calcium 8.2 L (8.4-10.2) mg/dL Urine Appearance (Clear) Urine Protein (Negative) Urine Ketones (Negative) Urine Bacteria (None) /hpf Hyaline Casts (0-2) /lpf Urine Mucus (None) /hpf Stool Occult Blood (Negative) Crossmatch 03/03/19 03/03/19 Range/Units 12:16 16:38 WBC (3.8-10.6) k/uL RBC (3.80-5.40) m/uL Hgb (11.4-16.0) gm/dL Hct (34.0-46.0) % MCV (80.0-100.0) fL MCH (25.0-35.0) pg MCHC (31.0-37.0) g/dL RDW (11.5-15.5) % Neutrophils # (1.3-7.7) k/uL Monocytes # (0-1.0) k/uL Creatinine (0.52-1.04) mg/dL Glucose (74-99) mg/dL POC Glucose (mg/dL) 151 H 135 H (75-99) mg/dL Calcium (8.4-10.2) mg/dL Urine Appearance (Clear) Urine Protein (Negative) Urine Ketones (Negative) Urine Bacteria (None) /hpf Hyaline Casts (0-2) /lpf Urine Mucus (None) /hpf Stool Occult Blood (Negative) Crossmatch Chest x-ray: report reviewed (Chest x-ray with cardiomegaly and small bilateral pleural effusions) Assessment and Plan (1) Microcytic hypochromic anemia Narrative/Plan: 78-year-old female with multiple medical comorbidities presenting to the hospital for evaluation of a constellation of concerns and found to have a microcytic hypochromic anemia of unknown etiology. Patient did have stool testing which was positive for blood but denied any signs or symptoms of GI bleeding at home. Unknown etiology of patient's anemia with plan for endoscopic evaluation to rule out GI bleed. Current Visit: Yes Status: Acute Code(s): D50.9 - IRON DEFICIENCY ANEMIA, UNSPECIFIED SNOMED Code(s): 56255182 (2) Positive occult stool blood test Current Visit: Yes Status: Acute Code(s): R19.5 - OTHER FECAL ABNORMALITIES SNOMED Code(s): 23858946 Plan: Supportive care Okay for liquid diet Nothing by mouth after midnight Bowel prep ordered Continue to monitor hemoglobin and hematocrit and transfuse as needed Continue PPI therapy Continue to hold anticoagulation therapy at this time Plan for EGD and colonoscopy for further evaluation Plan for further anemic workup with no source of GI bleeding as found on endos copic evaluation Thank you for allowing us to participate in the care of the patient we will continue to follow
[2019-03-04] MEDS: INSULIN ASPART (NovoLOG) 100 UNIT/ML VIAL SQ SCH ×7 (08:05→21:30)
[2019-03-04] MEDS: LACTATED RINGERS 1,000 ML IV SCH (08:11)
[2019-03-04] MEDS: DULoxetine HCL 60 MG CAPSULE.DR PO SCH (08:11)
[2019-03-04] MEDS: DILTIAZEM CD 120 MG CAP.ER.24H PO SCH (08:11)
[2019-03-04] MEDS: PANTOPRAZOLE 40 MG/10 ML VIAL IV SCH (08:11)
[2019-03-04] MEDS: PREGABALIN 100 MG CAP PO SCH ×3 (08:11→21:42)
[2019-03-04] MEDS: LEVOTHYROXINE 112 MCG TAB PO SCH (08:11)
[2019-03-04] MEDS: ACETAMINOPHEN TAB 325 MG TAB PO PRN (08:18)
--- NOTE | 2019-03-04 10:38 | P.PN ---
Subjective Progress Note Date: 03/04/19 Principal diagnosis: Anemia, sepsis Patient was seen and examined. No acute events overnight. Patient reports complete resolution of her burping/belching. She has no complaints this morning. She denies any chest pain, shortness breath or palpitations. No nausea or vomiting. No fever or chills. No abdominal pain. Patient underwent colonoscopy prep overnight. Plans for EGD and colonoscopy today to evaluate for GI bleed. Objective - Vital Signs Vital signs: Vital Signs Temp 97.6 F 03/04/19 08:00 Pulse 89 03/04/19 08:00 Resp 24 03/04/19 08:00 BP 151/64 03/04/19 08:00 Pulse Ox 99 03/04/19 08:00 Intake & Output 03/03/19 03/04/19 03/04/19 18:59 06:59 18:59 Intake Total 222 180 0 Output Total 600 1200 Balance -378 -1020 0 Weight 98.9 kg Intake: Oral 222 180 0 Output: Urine 600 1200 Other: Voiding Method Toilet # Voids 2 2 - Exam General: [non toxic], [no distress], [appears at stated age] Derm: [warm], [dry] Head: [atraumatic], [normocephalic], [symmetric] Eyes: [EOMI], [no lid lag], [anicteric sclera] Mouth: [no lip lesion], [mucus membranes moist] Cardiovascular: [S1S2 reg], [no murmur], [positive DP pulse bilateral], Lungs: [Decreased breath sounds bilateral], [no rhonchi, no rales] , [no accessory muscle use] Abdominal: [soft], [ nontender to palpation], [no guarding], [no appreciable organomegaly] Ext: [no gross muscle atrophy], [no edema], [no contractures] Neuro: [no focal neuro deficits] Psych: [Alert], [oriented], [appropriate affect] - Labs CBC & Chem 7: 03/03/19 21:25 03/03/19 07:44 Labs: Abnormal Lab Results - Last 24 Hours (Table) 03/03/19 03/03/19 03/03/19 Range/Units 12:16 16:38 21:11 WBC (3.8-10.6) k/uL RBC (3.80-5.40) m/uL Hgb (11.4-16.0) gm/dL Hct (34.0-46.0) % MCV (80.0-100.0) fL MCH (25.0-35.0) pg MCHC (31.0-37.0) g/dL RDW (11.5-15.5) % POC Glucose (mg/dL) 151 H 135 H 140 H (75-99) mg/dL 03/03/19 03/04/19 Range/Units 21:25 06:24 WBC 11.8 H (3.8-10.6) k/uL RBC 3.31 L (3.80-5.40) m/uL Hgb 7.6 L (11.4-16.0) gm/dL Hct 25.0 L (34.0-46.0) % MCV 75.5 L (80.0-100.0) fL MCH 22.8 L (25.0-35.0) pg MCHC 30.3 L (31.0-37.0) g/dL RDW 18.6 H (11.5-15.5) % POC Glucose (mg/dL) 150 H (75-99) mg/dL Microbiology - Last 24 Hours (Table) 03/02/19 15:56 Blood Culture - Preliminary Blood No Growth after 24 hours Assessment and Plan Assessment: Anemia likely due to blood loss from GI tract due to Eliquis use Sepsis with unknown source of infection Diabetes mellitus with hyperglycemia Recent diagnosis of right lower extremity DVT and PE COPD on 3 L home O2 Hypertension Fibromyalgia Hemoglobin 5.8-7.6 post 2 unit PRBC. FOBT positive. Likely due to recent start and Eliquis. Plans for EGD and colonoscopy today. Plans: CBC every 12 hours. Telemetry monitoring. Protonix IV. Follow GI consultation. Patient meets sepsis criteria. She has leukocytosis, 15.3-11.8. Tmax 101.1 Fahrenheit, afebrile since. Patient is tachycardic, which has resolved now. Lactic acid of 2.2-within normal limits. UA negative for nitrite or leukocyte esterase. Chest x-ray shows pleural effusion. Abdomen exam is benign. Blood culture negative at 24 hours. Plans: Infectious disease evaluated the patient, vancomycin discontinued and continued on cefepime IV. Tylenol as needed for fever or chills. Continue normal saline at 80 mL per hour. Follow blood culture. Follow sputum culture. Follow ID consultation. [id number] glucose 150. Plans: Hold home dose of insulin due to nothing by mouth. Insulin sliding scale. Regular Accu-Cheks. Hypoglycemic precautions. Plans: Hold Eliquis due to GI bleed. Stable. Plans: DuoNeb as needed for shortness of breath and wheezing. BP 151/64. Plans: Continue diltiazem. Monitor vitals, adjust medication as necessary. Plans: Continue Cymbalta. [Patient admitted for GI bleed, also found to be septic without a clear source of infection. Hemoglobin improved with blood transfusion, repeat CBC pending. Plans for EGD and colonoscopy. Sepsis improving, on broad-spectrum IV antibiotics, cultures are pending, ID on board. Likely DC in 1-2 days if EGD and colonoscopy are benign and if hemoglobin is maintaining with negative blood cultures.]
[2019-03-04 10:45] LABS: Anisocytosis Slight; HCT 25.1 % (34.0-46.0); HGB 7.7 gm/dL (11.4-16.0); Hypochromasia Marked; MCH 23.7 pg (25.0-35.0); MCHC 30.7 g/dL (31.0-37.0); MCV 77.2 fL (80.0-100.0); Mean Platelet Volume 7.9; Microcytosis Slight; Platelet Count 203 k/uL (150-450); Poikilocytosis Marked; RBC 3.26 m/uL (3.80-5.40); RDW 18.9 % (11.5-15.5); WBC 7.6 k/uL (3.8-10.6)
[2019-03-04 11:10] LABS: African American GFR (CKD) >90 (>60 ml/min/1.73 sqM); Non-African American GFR(CKD) >90 (>60 ml/min/1.73 sqM)
[2019-03-04 11:35] LABS: Glucose,Whole Blood 145 mg/dL (75-99)
[2019-03-04] MEDS ORDERED: IV FLUID CONTINUATION 1,000 ML IV ONE (13:04)
[2019-03-04] MEDS ORDERED: PROPOFOL 10 MG/ML 20 ML VIAL IV ONE (13:06)
[2019-03-04] MEDS ORDERED: LIDOCAINE 1% INJ 10MG/ML (20 ML MDV) ONE (13:06)
--- NOTE | 2019-03-04 14:19 | P.PCN ---
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 She reports symptoms of burping, belching and uncontrolled heartburn. She also reports 2 days of loose stools describing 3-4 loose dark brown bowel movements daily. She denies any melanotic stool or blood in her stool. The patient has no history of GI bleed. She had stool testing which was positive for occult blood. She reports that her last colonoscopy was over 10 years ago. In addition to her symptoms patient also reports decreased appetite prior to presentation. Found to have a hemoglobin of 5.4 on admission subsequently transfused to 7.6. Currently anticoagulation therapy is being held. The patient is seen sitting bedside denying any other concerns at this time. Procedure performed: Esophagogastroduodenoscopy with biopsy and argon plasma coagulation therapy of small bowel AVMs Colonoscopy with polypectomy Estimated blood loss: Minimal. Preoperative diagnosis: Anemia of acute blood loss, stool positive for blood, microcytic anemia Anesthesia: MAC Procedure: After informed consent was obtained from the patient was brought into the endoscopy unit and IV sedation was administered by anesthesia under continuous monitoring. Initially upper endoscopy was done. The Olympus GF 190 video endoscope was inserted into the mouth and esophagus intubated without any difficulty and was gradually advanced into the stomach and duodenum and carefully examined. The bulb and second part of the duodenum was significant for 2 nonbleeding arteriovenous malformations which were treated with argon plasma coagulation. IV is were also taken of the duodenum to rule out celiac sprue. The scope was then withdrawn into the stomach adequately insufflated with air and upon careful examination the antrum and body, cardia and fundus appeared normal, with biopsies taken of the antrum body to rule out Helicobacter pylori. The scope was then withdrawn into the esophagus. The GE junction was located at 37 cm to the incisors. It appeared regular with no erythema erosions or ulcerations. Rest of the esophagus appeared normal. Patient tolerated the procedure well. At this time the patient continued to remain sedation. Initial digital rectal examination was normal. Olympus CF 190 video colonoscope was then inserted into the rectum and gradually advanced to the cecum without any difficulty. Careful examination was performed as the scope was gradually being withdrawn. The prep was excellent. The cecum, ascending colon, transverse colon, descending colon, sigmoid colon and rectum appeared normal. One diminutive 1 mm cecal polyp removed with cold forceps polypectomy. 2 diminutive ascending colon polyps measuring 2 mm and 3 mm were removed with cold forcep polypectomy. 1 small 4 mm hepatic flexure polyp removed with cold snare polypectomy. One diminutive 3 mm transverse colon polyp removed with cold forcep polypectomy. One small 5 mm descending colon polyp removed with cold snare polypectomy. One pedunculated sigmoid polyp measuring 11 mm removed with hot snare polypectomy. Retroflexion was performed in the rectum and no lesions were noted. Patient tolerated the procedure well. Impression: 1. No active bleeding or old blood noted on upper endoscopy. 2 nonbleeding duodenal AVMs treated with argon plasma coagulation therapy. Biopsies of the duodenum and antrum and body taken. 2. No active bleeding or old blood noted on colonoscopy. 7 colonic polyps measuring from 1 mm in size to 11 mm in size removed with a variety of techniques (please see report for location, size and techniques of polypectomy). Recommendations: Findings of this examination were discussed with the patient as well as the medical team. Okay to resume diet. Okay to resume Eliquis therapy tomorrow. Continue to monitor for signs or symptoms of GI bleeding. No plans for further endoscopy at this time.
[2019-03-04] MEDS: FUROSEMIDE 40 MG TAB PO SCH (15:49)
[2019-03-04 17:04] LABS: Glucose,Whole Blood 120 mg/dL (75-99)
[2019-03-04] MEDS ORDERED: VANCOMYCIN TROUGH DUE 1 EACH MISC MISCELLANE ONE (18:00)
[2019-03-04 18:46] LABS: Anisocytosis Slight; HCT 28.3 % (34.0-46.0); HGB 8.6 gm/dL (11.4-16.0); Hypochromasia Marked; MCH 23.3 pg (25.0-35.0); MCHC 30.2 g/dL (31.0-37.0); MCV 77.3 fL (80.0-100.0); Mean Platelet Volume 7.2; Microcytosis Slight; Platelet Count 223 k/uL (150-450); Poikilocytosis Marked; RBC 3.66 m/uL (3.80-5.40); RDW 19.1 % (11.5-15.5); WBC 9.5 k/uL (3.8-10.6)
--- NOTE | 2019-03-04 20:00 | P.PN ---
Subjective Progress Note Date: 03/04/19 This is a 78-year-old female who presented to [facility] emergency center due to multiple symptoms including burping and belching with symptoms of heartburn, diarrhea with 3-4 bowel movements daily that were loose and dark brown. She denies any blood in her stool or melena. Patient reports some chills but denies fever. She reports a cough that has been ongoing for the past 2 weeks productive of yellow sputum. Patient endorses some shortness of breath but at baseline. She is on home O2 at 2 L nasal cannula. She also reports a decreased appetite over the past 2 days. Patient reports smoking 1-2 packs of cigarettes daily for greater than 50 years. She denies any headache, lower extremity edema, nausea or vomiting, chest pain, palpitations, changes in urination. She denies any dizziness, numbness/weakness/tingling of the extremities. On presentation, patient was febrile at 101.1 with heart rate of 112 and leukocytosis of 15.3 meeting SIRS criteria. Hemoglobin was 5.8. She has had a colonoscopy greater than 10 years ago. Coagulation panel was negative. CMP showed sodium of 135, glucose of 210, albumin 3.3. Lactic acid was 2.2 and repeat came down to 1.2. Troponin was less than 0.012 on 3 draws. Urinalysis showed trace ketones. Stool for occult blood was positive. Chest x- ray showed associated pleural effusions. Blood culture is in progress and sputum cultures on collected. GI consult also in place. Patient states that she has not had a bowel movement since admission. She continues to have chills but no documented fevers since admission. She states she feels "super tired" and was not able to sleep at night. The patient was started on cefepime and vancomycin. Repeat chest x-ray this morning find similar findings of cardiomegaly, interstitial edema, small pleural effusions. She is status post transfusion of 2 units packed RBCs with repeat hemoglobin of 7.6. 03/04/2019 the patient has had endoscopy performed and is feeling relatively well. She denying much pain. She still feels quite tired but is postanesthesia. She has no hematemesis melena or hematochezia looks forward to a meal. Objective - Vital Signs Vital signs: Vital Signs Temp 97.5 F L 03/04/19 15:00 Pulse 88 03/04/19 15:00 Resp 18 03/04/19 15:00 BP 119/66 03/04/19 15:00 Pulse Ox 91 L 03/04/19 15:00 Intake & Output 03/04/19 03/04/19 03/05/19 06:59 18:59 06:59 Intake Total 180 1022 Output Total 1200 Balance -1020 1022 Weight 98.9 kg Intake: IV 300 Intake, IV Titration 500 Amount Vancomycin 1,750 mg In 500 Sodium Chloride 0.9% 500 ml 500 ml @ 167 mls/hr IVPB Q12H [facility] Rx#: [id number] Oral 180 222 Output: Urine 1200 Other: Voiding Method Toilet Bedside Commode # Voids 2 # Bowel Movements 2 - Exam Gen: This is a 78-year-old female. Patient is resting in bed sleeping arouses easily to verbal stimuli. HEENT: Head is atraumatic, normocephalic. Pupils equal, round. Sclerae is anicteric. Oral mucous membranes are moist. NECK: Supple. No JVD. No lymphadenopathy. No thyromegaly. LUNGS: Decreased breath sounds with expiratory wheezing. No intercostal retractions. HEART: Regular rate and rhythm. No murmur. ABDOMEN: Soft. Bowel sounds are present. No masses. No tenderness. EXTREMITIES: Trace pedal edema. No calf tenderness. Dorsalis pedis +2 bilaterally. NEUROLOGICAL: Patient is awake, alert and oriented x3. - Labs CBC & Chem 7: 03/04/19 18:18 03/04/19 09:58 Labs: Abnormal Lab Results - Last 24 Hours (Table) 03/03/19 03/03/19 03/04/19 Range/Units 21:11 21:25 06:24 WBC 11.8 H (3.8-10.6) k/uL RBC 3.31 L (3.80-5.40) m/uL Hgb 7.6 L (11.4-16.0) gm/dL Hct 25.0 L (34.0-46.0) % MCV 75.5 L (80.0-100.0) fL MCH 22.8 L (25.0-35.0) pg MCHC 30.3 L (31.0-37.0) g/dL RDW 18.6 H (11.5-15.5) % Creatinine (0.52-1.04) mg/dL POC Glucose (mg/dL) 140 H 150 H (75-99) mg/dL 03/04/19 03/04/19 03/04/19 Range/Units 09:58 09:58 11:32 WBC (3.8-10.6) k/uL RBC 3.26 L (3.80-5.40) m/uL Hgb 7.7 L (11.4-16.0) gm/dL Hct 25.1 L (34.0-46.0) % MCV 77.2 L (80.0-100.0) fL MCH 23.7 L (25.0-35.0) pg MCHC 30.7 L (31.0-37.0) g/dL RDW 18.9 H (11.5-15.5) % Creatinine 0.50 L (0.52-1.04) mg/dL POC Glucose (mg/dL) 145 H (75-99) mg/dL 03/04/19 03/04/19 Range/Units 17:03 18:18 WBC (3.8-10.6) k/uL RBC 3.66 L (3.80-5.40) m/uL Hgb 8.6 L (11.4-16.0) gm/dL Hct 28.3 L (34.0-46.0) % MCV 77.3 L (80.0-100.0) fL MCH 23.3 L (25.0-35.0) pg MCHC 30.2 L (31.0-37.0) g/dL RDW 19.1 H (11.5-15.5) % Creatinine (0.52-1.04) mg/dL POC Glucose (mg/dL) 120 H (75-99) mg/dL Microbiology - Last 24 Hours (Table) 03/02/19 15:56 Blood Culture - Preliminary Blood No Growth after 48 hours Laboratory Results WBC 9.5 k/uL (3.8-10.6) 03/04/19 18:18 RBC 3.66 m/uL (3.80-5.40) L 03/04/19 18:18 Hgb 8.6 gm/dL (11.4-16.0) L 03/04/19 18:18 Hct 28.3 % (34.0-46.0) L 03/04/19 18:18 MCV 77.3 fL (80.0-100.0) L 03/04/19 18:18 MCH 23.3 pg (25.0-35.0) L 03/04/19 18:18 MCHC 30.2 g/dL (31.0-37.0) L 03/04/19 18:18 RDW 19.1 % (11.5-15.5) H 03/04/19 18:18 Plt Count 223 k/uL (150-450) 03/04/19 18:18 Neutrophils % 66 % 03/03/19 07:44 Lymphocytes % 20 % 03/03/19 07:44 Monocytes % 9 % 03/03/19 07:44 Eosinophils % 2 % 03/03/19 07:44 Basophils % 1 % 03/03/19 07:44 Neutrophils # 7.9 k/uL (1.3-7.7) H 03/03/19 07:44 Lymphocytes # 2.3 k/uL (1.0-4.8) 03/03/19 07:44 Monocytes # 1.1 k/uL (0-1.0) H 03/03/19 07:44 Eosinophils # 0.2 k/uL (0-0.7) 03/03/19 07:44 Basophils # 0.1 k/uL (0-0.2) 03/03/19 07:44 Hypochromasia Marked 03/04/19 18:18 Poikilocytosis Marked 03/04/19 18:18 Anisocytosis Slight 03/04/19 18:18 Microcytosis Slight 03/04/19 18:18 PT 11.1 sec (9.0-12.0) 03/02/19 15:56 INR 1.1 (<1.2) 03/02/19 15:56 APTT 24.2 sec (22.0-30.0) 03/02/19 15:56 Sodium 138 mmol/L (137-145) 03/03/19 07:44 Potassium 3.6 mmol/L (3.5-5.1) 03/03/19 07:44 Chloride 103 mmol/L (98-107) 03/03/19 07:44 Carbon Dioxide 29 mmol/L (22-30) 03/03/19 07:44 Anion Gap 6 mmol/L 03/03/19 07:44 BUN 9 mg/dL (7-17) 03/03/19 07:44 Creatinine 0.50 mg/dL (0.52-1.04) L 03/04/19 09:58 Est GFR (CKD-EPI)AfAm >90 (>60 ml/min/1.73 sqM) 03/04/19 09:58 Est GFR (CKD-EPI)NonAf >90 (>60 ml/min/1.73 sqM) 03/04/19 09:58 Glucose 165 mg/dL (74-99) H 03/03/19 07:44 POC Glucose (mg/dL) 120 mg/dL (75-99) H 03/04/19 17:[address] Magistrate ID Faith Holder 03/04/19 17:03 Lactic Ac Sepsis Rflx Y 03/02/19 16:34 Plasma Lactic Acid Jonathon 1.2 mmol/L (0.7-2.0) 03/02/19 19:48 Calcium 8.2 mg/dL (8.4-10.2) L 03/03/19 07:44 Total Bilirubin 1.3 mg/dL (0.2-1.3) 03/02/19 15:56 AST 16 U/L (14-36) 03/02/19 15:56 ALT 17 U/L (9-52) 03/02/19 15:56 Alkaline Phosphatase 79 U/L (38-126) 03/02/19 15:56 Creatine Kinase 23 U/L (30-135) L 03/02/19 15:56 Troponin I <0.012 ng/mL (0.000-0.034) 03/03/19 03:50 NT-Pro-B Natriuret Pep 452 pg/mL 03/02/19 15:56 Total Protein 5.6 g/dL (6.3-8.2) L 03/02/19 15:56 Albumin 3.3 g/dL (3.5-5.0) L 03/02/19 15:56 Urine Color Yellow 03/02/19 16:42 Urine Appearance Cloudy (Clear) H 03/02/19 16:42 Urine pH 5.5 (5.0-8.0) 03/02/19 16:42 Ur Specific [place] 1.026 (1.001-1.035) 03/02/19 16:42 Urine Protein 1+ (Negative) H 03/02/19 16:42 Urine Glucose (UA) Negative (Negative) 03/02/19 16:42 Urine Ketones Trace (Negative) H 03/02/19 16:42 Urine Blood Negative (Negative) 03/02/19 16:42 Urine Nitrite Negative (Negative) 03/02/19 16:42 Urine Bilirubin Negative (Negative) 03/02/19 16:42 Urine Urobilinogen 3.0 mg/dL (<2.0) 03/02/19 16:42 Ur Leukocyte Esterase Negative (Negative) 03/02/19 16:42 Urine RBC <1 /hpf (0-5) 03/02/19 16:42 Urine WBC 3 /hpf (0-5) 03/02/19 16:42 Ur Squamous Epith Cells 1 /hpf (0-4) 03/02/19 16:42 Urine Bacteria Rare /hpf (None) H 03/02/19 16:42 Hyaline Casts 11 /lpf (0-2) H 03/02/19 16:42 Urine Mucus Many /hpf (None) H 03/02/19 16:42 Stool Occult Blood Positive (Negative) H 03/02/19 16:42 Blood Type B Positive 03/02/19 15:56 Blood Type Confirm B Positive 03/02/19 17:36 Blood Type Recheck No Previous Record 03/02/19 15:56 Bld Type Recheck Status CABO Indicated 03/02/19 15:56 Antibody Screen POSITIVE 03/02/19 15:56 Antibody Identification Anti-E 03/02/19 15:56 Direct Antiglob Test Negative 03/02/19 15:56 Crossmatch See Detail 03/02/19 15:56 Spec Expiration Date 03/05/2019235503/02/19 15:56 Microbiology 03/02/19 15:56 Blood Blood Culture - Preliminary No Growth after 48 hours Assessment and Plan (1) Fever Narrative/Plan: 78-year-old woman presents to Hospital with a history of what appears to be fevers and chills associated with increasing shortness of breath some gasping respirations resulting in air gulping burping and belching as well as some loose stools of 3-4 times per day. Presents hospital feeling poorly with evidence of exacerbation of COPD, significant weakness acute blood loss anemia and fever. She is not feeling somewhat better but still not well. 2 units of packed red cells deathly helped her feel better. She is less short of breath but is still actively wheezing. patient is having exacerbation of her COPD. possibly also some congestive heart failure we will de-escalate antibiotic therapy, no evidence of MRSA and vancomycin is discontinued. Await further cultures to further evaluate need for further cefepime. I believe gastroenterology evaluation as occurring as to the etiology of her acute blood loss anemia which appears to be gastrointestinal in nature. She still feels quite weak after 2 units of packed red cells. The fever has several potentials including the acute pulmonary event, however acute blood loss anemia can also be affiliated with fever. 03/04/2019 the patient is status post endoscopy is feeling relatively well. She's had no further fevers. No evidence of any underlying infection is being noted he had at this point in time. All cultures are finalized and negative we'll then discontinue the cefepime. Current Visit: Yes Status: Acute Code(s): R50.9 - FEVER, UNSPECIFIED SNOMED Code(s): 322822791
[2019-03-04 20:53] LABS: Glucose,Whole Blood 119 mg/dL (75-99)
[2019-03-04] MEDS: ATORVASTATIN 10 MG TAB PO SCH ×2 (21:38→21:42)
[2019-03-05] MEDS: ACETAMINOPHEN TAB 325 MG TAB PO PRN (02:14)
[2019-03-05 06:27] LABS: Glucose,Whole Blood 134 mg/dL (75-99)
[2019-03-05] MEDS: LACTATED RINGERS 1,000 ML IV SCH (06:33)
[2019-03-05] MEDS: INSULIN ASPART (NovoLOG) 100 UNIT/ML VIAL SQ SCH ×7 (06:33→21:30)
[2019-03-05] MEDS: PANTOPRAZOLE 40 MG TABLET PO SCH (06:36)
[2019-03-05] MEDS: LEVOTHYROXINE 112 MCG TAB PO SCH (06:36)
[2019-03-05 06:46] LABS: Anisocytosis Slight; HCT 25.2 % (34.0-46.0); HGB 7.7 gm/dL (11.4-16.0); Hypochromasia Marked; MCH 23.2 pg (25.0-35.0); MCHC 30.5 g/dL (31.0-37.0); MCV 76.1 fL (80.0-100.0); Mean Platelet Volume 8.5; Microcytosis Moderate; Platelet Count 247 k/uL (150-450); Poikilocytosis Marked; RBC 3.32 m/uL (3.80-5.40); RDW 19.6 % (11.5-15.5); WBC 9.2 k/uL (3.8-10.6)
[2019-03-05] MEDS: CEFEPIME 2 GM in SODIUM CHLORIDE 0.9% 100 ML IVPB SCH ×3 (08:05→22:58)
[2019-03-05] MEDS: DILTIAZEM CD 120 MG CAP.ER.24H PO SCH (08:05)
[2019-03-05] MEDS: FUROSEMIDE 40 MG TAB PO SCH (08:05)
[2019-03-05] MEDS: DULoxetine HCL 60 MG CAPSULE.DR PO SCH (08:06)
[2019-03-05] MEDS: PREGABALIN 100 MG CAP PO SCH ×2 (08:06→21:30)
[2019-03-05] MEDS ORDERED: IPRATROPIUM-ALBUTEROL 3 ML NEB INHALATION PRN (11:47)
--- NOTE | 2019-03-05 11:49 | P.PN ---
Subjective Progress Note Date: 03/05/19 Patient is seen and examined at bedside denies any significant pain today denies any nausea, the patient short of breath with some wheezes, patient afebrile. Hemoglobin down to 7.7 g approximately 1 g drop since yesterday. No acute events overnight Objective - Vital Signs Vital signs: Vital Signs Temp 98.4 F 03/05/19 07:55 Pulse 92 03/05/19 07:55 Resp 18 03/05/19 07:55 BP 120/55 03/05/19 07:55 Pulse Ox 98 03/05/19 07:55 Intake & Output 03/04/19 03/05/19 03/05/19 18:59 06:59 18:59 Intake Total 1022 222 Output Total 1900 Balance 1022 -1900 222 Weight 98.2 kg Intake: IV 300 Intake, IV Titration 500 Amount Vancomycin 1,750 mg In 500 Sodium Chloride 0.9% 500 ml 500 ml @ 167 mls/hr IVPB Q12H [facility] Rx#: [id number] Oral 222 222 Output: Urine 1900 Other: Voiding Method Bedside Commode # Bowel Movements 2 - Exam Constitutional: No acute distress, conversant, pleasant Eyes: Anicteric sclerae, moist conjunctiva, no lid-lag, PERRLA ENMT: NC/AT,Oropharynx clear, no erythema, exudates Neck:Supple, FROM, no masses, or JVD, No carotid bruits; No thyromegaly Lungs: Faint Expiratory wheezes on 2 L nasal cannula, good aeration Normal respiratory effort, no accessory muscle use Cardiovascular: Heart regular in rate and rhythm, No murmurs, gallops, or rubs no peripheral edema Abdominal: Soft Nontender, nom distended, no guarding, no rebound or rigidity, Normoactive bowel sounds No hepatomegaly, No splenomegaly, No palpable mass No abdominal wall hernia noted Skin: Normal temperature, tone, texture, turgor, No induration No subcutaneous nodules, No rash, lesions, No ulcers Extremities:No digital cyanosis No clubbing, Pedal pulses intact and symme trical Radial pulses intact and symmetrical Normal gait and station, No calf tenderness Psychiatric: Alert and oriented to person, place and time, Appropriate affect Intact judgement Neuro: Muscles Strength 5/5 in all 4 extremities, Sensation to light touch grossly present throughout, Cranial nerves II-XII grossly intact. No focal sensory deficits - Labs CBC & Chem 7: 03/05/19 06:20 03/04/19 09:58 Labs: Abnormal Lab Results - Last 24 Hours (Table) 03/04/19 03/04/19 03/04/19 Range/Units 11:32 17:03 18:18 RBC 3.66 L (3.80-5.40) m/uL Hgb 8.6 L (11.4-16.0) gm/dL Hct 28.3 L (34.0-46.0) % MCV 77.3 L (80.0-100.0) fL MCH 23.3 L (25.0-35.0) pg MCHC 30.2 L (31.0-37.0) g/dL RDW 19.1 H (11.5-15.5) % POC Glucose (mg/dL) 145 H 120 H (75-99) mg/dL 03/04/19 03/05/19 03/05/19 Range/Units 20:51 06:20 06:26 RBC 3.32 L (3.80-5.40) m/uL Hgb 7.7 L (11.4-16.0) gm/dL Hct 25.2 L (34.0-46.0) % MCV 76.1 L (80.0-100.0) fL MCH 23.2 L (25.0-35.0) pg MCHC 30.5 L (31.0-37.0) g/dL RDW 19.6 H (11.5-15.5) % POC Glucose (mg/dL) 119 H 134 H (75-99) mg/dL Microbiology - Last 24 Hours (Table) 03/02/19 15:56 Blood Culture - Preliminary Blood No Growth after 48 hours Assessment and Plan Assessment: Acute blood loss anemia * Secondary to upper GI bleed due to AVMs * Hemoglobin down a Gram to 7.7 today we'll recheck CBC in the am Upper GI bleed * Likely secondary to duodenal AVMs * EGD showed nonbleeding duodenal AVMs treated with Argon plasma coagulation therapy * Continue to monitor hemoglobin Duodenal AVMs * As above Acute COPD exacerbation * Continue albuterol Atrovent DuoNeb breathing treatments, initiate prednisone and inhaled performist Type 2 diabetes mellitus with hyperglycemia * Continue Accu-Cheks blood sugars are stable * Continue current insulin regimen with correctional scale coverage 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
[2019-03-05 11:51] LABS: Glucose,Whole Blood 135 mg/dL (75-99)
[2019-03-05] MEDS: predniSONE 20 MG TAB PO SCH (12:03)
[2019-03-05] MEDS: IPRATROPIUM-ALBUTEROL 3 ML NEB INHALATION SCH ×4 (12:20→22:49)
[2019-03-05 13:10] LABS: Reticulocyte % 3.2 % (0.5-2.0)
[2019-03-05 17:10] LABS: Glucose,Whole Blood 381 mg/dL (75-99)
[2019-03-05 18:58] LABS: Ferritin 32.7 ng/mL (10.0-291.0)
[2019-03-05 18:59] LABS: Folate, Serum 8.6 ng/mL
[2019-03-05 19:03] LABS: % Iron Saturation 2.84 (12.00-45.00)
[2019-03-05] MEDS: FORMOTEROL FUMARATE 20 MCG/2 ML NEBU INHALATION SCH (19:36)
[2019-03-05 21:03] LABS: Glucose,Whole Blood 323 mg/dL (75-99)
[2019-03-05] MEDS: ATORVASTATIN 10 MG TAB PO SCH (21:30)
[2019-03-06] MEDS: LACTATED RINGERS 1,000 ML IV SCH (02:34)
[2019-03-06 06:07] LABS: Glucose,Whole Blood 201 mg/dL (75-99)
[2019-03-06] MEDS: INSULIN ASPART (NovoLOG) 100 UNIT/ML VIAL SQ SCH ×7 (06:08→21:01)
[2019-03-06] MEDS: LEVOTHYROXINE 112 MCG TAB PO SCH (06:12)
[2019-03-06] MEDS: PANTOPRAZOLE 40 MG TABLET PO SCH (06:12)
[2019-03-06 06:52] LABS: Anisocytosis Slight; Basophils % (A) 0 %; Eosinophils # (A) 0.1 k/uL (0-0.7); Eosinophils % (A) 1 %; HGB 8.1 gm/dL (11.4-16.0); Hypochromasia Marked; Lymphocytes # (A) 2.4 k/uL (1.0-4.8); Lymphocytes % (A) 28 %; MCH 22.8 pg (25.0-35.0); Mean Platelet Volume 8.2; Microcytosis Moderate; Monocytes # (A) 0.8 k/uL (0-1.0); Monocytes % (A) 9 %; Neutrophils # (A) 5.2 k/uL (1.3-7.7); Neutrophils % (A) 59 %; Platelet Count 296 k/uL (150-450); Poikilocytosis Marked; RBC 3.56 m/uL (3.80-5.40); RDW 19.9 % (11.5-15.5); WBC 8.8 k/uL (3.8-10.6)
[2019-03-06] MEDS: FORMOTEROL FUMARATE 20 MCG/2 ML NEBU INHALATION SCH ×2 (07:52→19:27)
[2019-03-06] MEDS: IPRATROPIUM-ALBUTEROL 3 ML NEB INHALATION SCH ×4 (07:52→19:27)
[2019-03-06] MEDS: FUROSEMIDE 40 MG TAB PO SCH (08:10)
[2019-03-06] MEDS: PREGABALIN 100 MG CAP PO SCH ×2 (08:10→21:02)
[2019-03-06] MEDS: DILTIAZEM CD 120 MG CAP.ER.24H PO SCH (08:10)
[2019-03-06] MEDS: DULoxetine HCL 60 MG CAPSULE.DR PO SCH (08:10)
[2019-03-06] MEDS: predniSONE 20 MG TAB PO SCH (08:10)
[2019-03-06] MEDS: CEFEPIME 2 GM in SODIUM CHLORIDE 0.9% 100 ML IVPB SCH (08:11)
--- NOTE | 2019-03-06 10:26 | P.PN ---
Subjective Progress Note Date: 03/05/19 Principal diagnosis: Iron deficiency anemia Patient lying in bed reporting she has tolerated her diet. No abdominal pain. No bowel movements today. Objective - Vital Signs Vital signs: Vital Signs Temp 98.4 F 03/05/19 07:55 Pulse 74 03/05/19 12:28 Resp 18 03/05/19 07:55 BP 120/55 03/05/19 07:55 Pulse Ox 98 03/05/19 07:55 Intake & Output 03/04/19 03/05/19 03/05/19 18:59 06:59 18:59 Intake Total 1022 222 Output Total 1900 Balance 1022 -1900 222 Weight 98.2 kg Intake: IV 300 Intake, IV Titration 500 Amount Vancomycin 1,750 mg In 500 Sodium Chloride 0.9% 500 ml 500 ml @ 167 mls/hr IVPB Q12H [facility] Rx#: [id number] Oral 222 222 Output: Urine 1900 Other: Voiding Method Bedside Commode # Bowel Movements 2 - Exam On physical examination, patient appears comfortable in no apparent distress. HEAD: Normocephalic, atraumatic. EYES: No scleral icterus. No conjunctival injection. MOUTH: No lesions, tongue midline. NECK: Trachea midline, no gross abnormalities. ABDOMEN: Soft, obese. Bowel sounds are positive. No organomegaly. No guarding or rigidity. EXTREMITIES: No pedal edema. SKIN: No rashes, no jaundice. NEUROLOGIC: Alert and oriented x3. No focal deficits. - Labs CBC & Chem 7: 03/06/19 06:07 03/04/19 09:58 Labs: Abnormal Lab Results - Last 24 Hours (Table) 03/04/19 03/04/19 03/04/19 Range/Units 17:03 18:18 20:51 RBC 3.66 L (3.80-5.40) m/uL Hgb 8.6 L (11.4-16.0) gm/dL Hct 28.3 L (34.0-46.0) % MCV 77.3 L (80.0-100.0) fL MCH 23.3 L (25.0-35.0) pg MCHC 30.2 L (31.0-37.0) g/dL RDW 19.1 H (11.5-15.5) % POC Glucose (mg/dL) 120 H 119 H (75-99) mg/dL 03/05/19 03/05/19 03/05/19 Range/Units 06:20 06:26 11:50 RBC 3.32 L (3.80-5.40) m/uL Hgb 7.7 L (11.4-16.0) gm/dL Hct 25.2 L (34.0-46.0) % MCV 76.1 L (80.0-100.0) fL MCH 23.2 L (25.0-35.0) pg MCHC 30.5 L (31.0-37.0) g/dL RDW 19.6 H (11.5-15.5) % POC Glucose (mg/dL) 134 H 135 H (75-99) mg/dL Microbiology - Last 24 Hours (Table) 03/02/19 15:56 Blood Culture - Preliminary Blood No Growth after 48 hours Assessment and Plan (1) Microcytic hypochromic anemia Narrative/Plan: 78-year-old female with multiple medical comorbidities presenting to the hospital for evaluation of a constellation of concerns and found to have a microcytic hypochromic anemia of unknown etiology. Patient did have stool testing which was positive for blood but denied any signs or symptoms of GI bleeding at home. Taken for endoscopy with findings of 2 nonbleeding duodenal AVM was treated with argon plasma coagulation therapy and multiple colonic polyps which were removed. Current Visit: Yes Status: Acute Code(s): D50.9 - IRON DEFICIENCY ANEMIA, UNSPECIFIED SNOMED Code(s): 64338257 (2) Positive occult stool blood test Current Visit: Yes Status: Acute Code(s): R19.5 - OTHER FECAL ABNORMALITIES SNOMED Code(s): 07714085 Plan: Supportive care Okay for diet Bowel prep ordered Continue to monitor hemoglobin and hematocrit and transfuse as needed Continue PPI therapy Okay to resume anticoagulation therapy Iron studies consistent with iron deficiency and by mouth iron supplementation added Thank you for allowing us to participate in the care of the patient the GI service will stand by, please call us back with any questions or concerns
--- NOTE | 2019-03-06 11:26 | US ---
EXAMINATION TYPE: US venous doppler duplex LE BI DATE OF EXAM: 03/06/2019 10:31 AM COMPARISON: Prior bilateral venous ultrasound January 06, 2019 CLINICAL HISTORY: recent DVT now with GI bleed, F/U R femoral DVT. On blood thinners, GI Bleed SIDE PERFORMED: Bilateral TECHNIQUE: The lower extremity deep venous system is examined utilizing real time linear array sonog obey with graded compression, doppler sonography and color-flow sonography. VESSELS IMAGED: External Iliac Vein (EIV) Common Femoral Vein Deep Femoral Vein Greater Saphenous Vein * Femoral Vein Popliteal Vein Small Saphenous Vein * Proximal Calf Veins (* superficial vessels) Very limited exam due to swelling and penetration Right Leg: Appears negative for acute DVT Left Leg: Appears negative for acute DVT Grayscale, color doppler, spectral doppler imaging performed of the deep veins of the bilateral lower extremities. There is normal flow, compressibility, vascular waveforms. Fairly moderate diffuse so ft tissue swelling noted bilaterally. IMPRESSION: Suboptimal study due to soft tissue swelling and body habitus. No acute DVT is identifie d bilaterally on current exam.
[2019-03-06 12:18] LABS: Glucose,Whole Blood 228 mg/dL (75-99)
[2019-03-06 16:36] LABS: Glucose,Whole Blood 392 mg/dL (75-99)
[2019-03-06] MEDS: FERROUS SULFATE 325 MG TAB PO SCH (17:31)
[2019-03-06] MEDS: ACETAMINOPHEN TAB 325 MG TAB PO PRN (17:31)
--- NOTE | 2019-03-06 18:23 | P.PN ---
Subjective Progress Note Date: 03/06/19 Principal diagnosis: Diarrhea Patient is a 78-year-old female past medical history of COPD, diabetes, hypertension, and recent diagnosis of DVT and PE who presented to the emergency department for upset stomach and diarrhea. In the emergency department she was found to be febrile with a T-max of 101.1 and tachycardic with heart rate of 112. Laboratory analysis showed an elevated white blood cell count 15.3, anemia with hemoglobin of 5.8, and a lactic acid of 2.2. EKG showed tachycardia with fusion complexes and troponin was negative. Urinalysis was negative. Fecal occult blood was positive. Chest x-ray demonstrated associated pleural effusions. She was admitted for GI bleed with possible sepsis. She was started on cefepime and vancomycin for broad-spectrum antibiotics. She was also started on IV Protonix for possible GI bleed. Concern was for possible gastroenteritis. She was seen by infectious disease. GI was consulted. Her vancomycin was discontinued with no history of MRSA. She underwent EGD and colonoscopy on 03/04. 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 She was found have 7 polyps in the colon and underwent polypectomy. She remained afebrile during her hospitalization all cultures were finalized and negative and therefore infectious disease discontinued cefepime. Patient seen and examined at bedside. No chest pain, SOB, nausea, vomiting, or leg pain. We had a long discussion about risks versus benefits of long-term coagulation she has had a bleeding AVM with hemoglobin down to 5.4. This has been treated however there could be more AVMs. We will repeat venous duplex and consult hematology oncology. Objective - Vital Signs Vital signs: Vital Signs Temp 98.1 F 03/05/19 15:25 Pulse 84 03/06/19 08:18 Resp 16 03/06/19 04:00 BP 126/63 03/06/19 04:00 Pulse Ox 95 03/06/19 04:00 Intake & Output 03/05/19 03/06/19 03/06/19 18:59 06:59 18:59 Intake Total 924 180 Output Total 2200 Balance 924 -2200 180 Weight 98.1 kg Intake: Intake, IV Titration 240 Amount Lactated Ringers 1,000 ml 240 @ 20 mls/hr IV .[facility]H [facility] Rx#:[id number] Oral 684 180 Output: Urine 2200 - Exam General: non toxic, no distress, appears at stated age Derm: warm, dry Head: atraumatic, normocephalic, symmetric Eyes: EOMI, no lid lag, anicteric sclera Mouth: no lip lesion, mucus membranes moist, poor dentition Cardiovascular: S1S2 reg, no murmur, positive posterior tibial pulse bilateral, Lungs: Decreased breath sounds bilateral, no rhonchi, no rales , no accessory muscle use Abdominal: soft, nontender to palpation, no guarding, no appreciable organomegaly Ext: no gross muscle atrophy, 3+ edema bilateral lower extremities, no contractures Neuro: CN II-XI grossly intact, no focal neuro deficits Psych: Alert, oriented, appropriate affect - Labs CBC & Chem 7: 03/06/19 06:07 03/04/19 09:58 Labs: Abnormal Lab Results - Last 24 Hours (Table) 03/05/19 03/05/19 03/05/19 Range/Units 06:20 06:20 11:50 RBC (3.80-5.40) m/uL Hgb (11.4-16.0) gm/dL Hct (34.0-46.0) % MCV (80.0-100.0) fL MCH (25.0-35.0) pg MCHC (31.0-37.0) g/dL RDW (11.5-15.5) % Retic Count 3.2 H (0.5-2.0) % POC Glucose (mg/dL) 135 H (75-99) mg/dL Iron 11 L (50-170) ug/dL % Saturation 2.84 L (12.00-45.00) 03/05/19 03/05/19 03/06/19 Range/Units 17:09 21:02 06:06 RBC (3.80-5.40) m/uL Hgb (11.4-16.0) gm/dL Hct (34.0-46.0) % MCV (80.0-100.0) fL MCH (25.0-35.0) pg MCHC (31.0-37.0) g/dL RDW (11.5-15.5) % Retic Count (0.5-2.0) % POC Glucose (mg/dL) 381 H 323 H 201 H (75-99) mg/dL Iron (50-170) ug/dL % Saturation (12.00-45.00) 03/06/19 Range/Units 06:07 RBC 3.56 L (3.80-5.40) m/uL Hgb 8.1 L (11.4-16.0) gm/dL Hct 27.0 L (34.0-46.0) % MCV 76.0 L (80.0-100.0) fL MCH 22.8 L (25.0-35.0) pg MCHC 30.0 L (31.0-37.0) g/dL RDW 19.9 H (11.5-15.5) % Retic Count (0.5-2.0) % POC Glucose (mg/dL) (75-99) mg/dL Iron (50-170) ug/dL % Saturation (12.00-45.00) Microbiology - Last 24 Hours (Table) 03/02/19 15:56 Blood Culture - Preliminary Blood No Growth after 72 hours Assessment and Plan Assessment: Acute blood loss anemia secondary to bleeding AVM -Status post coagulation -GI recommendations -Repeat CBC in a.m. -PPI Recent DVT and pulmonary embolism -Has only completed 2 months of Eliquis therapy -Repeat venous Doppler to check on progress of right femoral vein DVT -Consult hematology oncology regarding recommendations for anticoagulation and consideration with recent bleeding AVM -Of this was a provoked DVT in December as the patient had just returned from a car trip to [place] to see her son SIRS criteria, sepsis ruled out -This placed on broad-spectrum antibiotics which has been discontinued by infectious disease there is no definitive source of her infection found -Continue to monitor fever profile Diabetes mellitus with hyperglycemia -Patient is off her receive the -Continue with fixed dose insulin 5 units 3 times daily and sliding scale -Add Levemir 15 units nightly Chronic: COPD without acute exacerbation with chronic hypoxic respiratory failure Hypertension Fibromyalgia Lactic acidosis, resolved DVT prophylaxis: SCD secondary to GI bleed Discussed with: Patient, nursing Anticipated discharge: In a.m. Anticipated discharge place: Home A total of 35 minutes was spent on the care of this complex patient more than 50% of the time was spent in counseling and care coordination.
[2019-03-06 20:20] LABS: Glucose,Whole Blood 255 mg/dL (75-99)
[2019-03-06] MEDS ORDERED: INSULIN DETEMIR (LEVEMIR) 100 UNIT/ML SYR SQ SCH (21:00)
[2019-03-06] MEDS: ATORVASTATIN 10 MG TAB PO SCH (21:02)
[2019-03-07 03:36] LABS: Glucose,Whole Blood 185 mg/dL (75-99)
[2019-03-07] MEDS: LACTATED RINGERS 1,000 ML IV SCH (04:38)
[2019-03-07] MEDS: LEVOTHYROXINE 112 MCG TAB PO SCH (05:53)
[2019-03-07 06:18] VITALS: BP 123/69; RESP 16; TEMP 98
[2019-03-07] MEDS: IPRATROPIUM-ALBUTEROL 3 ML NEB INHALATION SCH ×2 (07:05→11:04)
[2019-03-07] MEDS: FORMOTEROL FUMARATE 20 MCG/2 ML NEBU INHALATION SCH (07:05)
[2019-03-07 07:06] LABS: Glucose,Whole Blood 163 mg/dL (75-99)
[2019-03-07 08:37] VITALS: BMI 39.5
[2019-03-07 09:18] LABS: Anisocytosis Slight; HCT 27.9 % (34.0-46.0); HGB 8.3 gm/dL (11.4-16.0); Hypochromasia Marked; MCH 22.8 pg (25.0-35.0); MCHC 29.7 g/dL (31.0-37.0); MCV 76.8 fL (80.0-100.0); Mean Platelet Volume 7.2; Microcytosis Moderate; Platelet Count 293 k/uL (150-450); Poikilocytosis Marked; RBC 3.63 m/uL (3.80-5.40); RDW 19.7 % (11.5-15.5); WBC 11.9 k/uL (3.8-10.6)
[2019-03-07 09:22] LABS: African American GFR (CKD) >90 (>60 ml/min/1.73 sqM); Anion Gap 9 mmol/L; Blood Urea Nitrogen 10 mg/dL (7-17); Calcium 9.1 mg/dL (8.4-10.2); Carbon Dioxide 32 mmol/L (22-30); Chloride 99 mmol/L (98-107); Glucose 130 mg/dL (74-99); Non-African American GFR(CKD) >90 (>60 ml/min/1.73 sqM); Potassium 3.4 mmol/L (3.5-5.1); Sodium 140 mmol/L (137-145)
[2019-03-07] MEDS: INSULIN ASPART (NovoLOG) 100 UNIT/ML VIAL SQ SCH ×4 (09:26→12:23)
[2019-03-07] MEDS: PREGABALIN 100 MG CAP PO SCH (09:27)
[2019-03-07] MEDS: DULoxetine HCL 60 MG CAPSULE.DR PO SCH (09:27)
[2019-03-07] MEDS: FERROUS SULFATE 325 MG TAB PO SCH (09:27)
[2019-03-07] MEDS: FUROSEMIDE 40 MG TAB PO SCH (09:27)
[2019-03-07] MEDS: PANTOPRAZOLE 40 MG TABLET PO SCH (09:27)
[2019-03-07] MEDS: predniSONE 20 MG TAB PO SCH (09:27)
[2019-03-07] MEDS: DILTIAZEM CD 120 MG CAP.ER.24H PO SCH (09:28)
[2019-03-07 11:16] VITALS: PULSE 92
[2019-03-07 11:21] LABS: Glucose,Whole Blood 172 mg/dL (75-99)
--- NOTE | 2019-03-07 12:31 | P.DS ---
Providers Date of admission: 03/02/19 17:04 Expected date of discharge: 03/07/19 Attending physician: Andrew Fisher MD Consults: 03/02/19 17:15 Consult Physician Urgent Consulting Provider: Andres Montgomery Consult Reason/Comments: eval for sepsis Do you want consulting provider notified?: Yes 03/06/19 09:04 Consult Physician Routine Consulting Provider: Rajeev Denny Consult Reason/Comments: Recent PE/DVT rashel GI bleed due to AVM Do you want consulting provider notified?: Yes Primary care physician: Kai Chen Hospital Course: Discharge Diagnosis: Acute blood loss anemia due to GI bleeding due to AVM Recent DVT and pulmonary elbolism SIRS crieteria, infection ruled out DM 2 with hyperglycemia COPD with acute exacerbation with chronic hypoxic respiratory failure Hypertension Fibromyalgia Lactic acidosis, resolved Hospital Course: Patient is a 78-year-old female past medical history of COPD, diabetes, hypertension, and recent diagnosis of DVT and PE who presented to the emergency department for upset stomach and diarrhea. In the emergency department she was found to be febrile with a T-max of 101.1 and tachycardic with heart rate of 112. Laboratory analysis showed an elevated white blood cell count 15.3, anemia with hemoglobin of 5.8, and a lactic acid of 2.2. EKG showed tachycardia with fusion complexes and troponin was negative. Urinalysis was negative. Fecal occult blood was positive. Chest x-ray demonstrated associated pleural effusions. She was admitted for GI bleed with possible sepsis. She was started on cefepime and vancomycin for broad-spectrum antibiotics. She was also started on IV Protonix for possible GI bleed. Concern was for possible gastroenteritis. She was seen by infectious disease. GI was consulted. Her vancomycin was discontinued with no history of MRSA. She underwent EGD and colonoscopy on 03/04. 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 She was found have 7 polyps in the colon and underwent polypectomy. She remained afebrile during her hospitalization all cultures were finalized and negative and therefore infectious disease discontinued cefepime. She was started on prednisone on 03/05 and that is what was felt to de seconday to starting steroids on 03/05. her blood count remained stable. She had no additional episodes of blood in her stool. We discussed risks versus benefits of going back on chronic anticoagulation therapy with history of GI bleed. We repeated lower extremity venous Dopplers which showed resolution of her right lower extremity DVT. we discussed the risk versus benefits of restarting anticoagulation therapy. She will attempt to complete 6 months of Eliquis therapy so she will need for additional month. She will have a repeat CBC in 1 week with her primary care provider. She will monitor her stools closely as listed in her discharge instructions. She was determined stable for discharge home. Patient seen and examined at bedside. no chest pain, shortness, nausea, vomiting, or additional dark tarry looking stools. Feeling well. Vital signs reviewed and stable. General: non toxic, no distress,Obese Derm: warm, dry Head: atraumatic, normocephalic, symmetric Eyes: EOMI, no lid lag, anicteric sclera Mouth: no lip lesion, mucus membranes moist Cardiovascular: S1S2 reg, no murmur, positive posterior tibial pulse bilateral, Lungs: CTA bilateral, no rhonchi, no rales , no accessory muscle use Abdominal: soft, nontender to palpation, no guarding, no appreciable organomegaly Ext: no gross muscle atrophy, 2+except default edema, no contractures Neuro: CN II-XI grossly intact, no focal neuro deficits Psych: Alert, oriented, appropriate affect A total of 35 minutes of time were spent preparing this complex discharge summary . Patient Condition at Discharge: Stable Plan - Discharge Summary New Discharge Prescriptions: New predniSONE 40 mg PO DAILY #4 tab Ferrous Sulfate [Slow Release Iron] 250 mg PO AC-BID #60 tablet.er Continue Levothyroxine Sodium [Synthroid] 112 mcg PO DAILY Omeprazole 20 mg PO DAILY Simvastatin [Zocor] 20 mg PO HS Insulin Degludec [Tresiba] 18 units SQ HS Albuterol Sulfate [Proair Hfa] 2 puff INHALATION RT-QID PRN PRN Reason: Shortness Of Breath Pregabalin [Lyrica] 100 mg PO BID Insulin Degludec [Tresiba] 38 units SQ QAM Diltiazem HCl [Diltiazem 24Hr ER] 120 mg PO DAILY DULoxetine HCL [Cymbalta] 60 mg PO DAILY Albuterol Nebulized [Ventolin Nebulized] 2.5 mg INHALATION RT-QID PRN PRN Reason: Shortness Of Breath Insulin Lispro [humaLOG Kwikpen] 6 unit SQ AC-TID Apixaban [Eliquis] 5 mg PO BID 37 Days #88 tab Budesonide-Formot 160-4.5 Mcg [Symbicort 160-4.5 Mcg Inhaler] 2 puff INHALATION RT-BID Fluticasone/Vilanterol [Breo Ellipta 200-25 Mcg INH] 1 puff INHALATION RT- DAILY Discharge Medication List Levothyroxine Sodium [Synthroid] 112 mcg PO DAILY 10/26/15 [History] Omeprazole 20 mg PO DAILY 10/26/15 [History] Simvastatin [Zocor] 20 mg PO HS 10/26/15 [History] Albuterol Sulfate [Proair Hfa] 2 puff INHALATION RT-QID PRN 09/03/18 [History] DULoxetine HCL [Cymbalta] 60 mg PO DAILY 09/03/18 [History] Diltiazem HCl [Diltiazem 24Hr ER] 120 mg PO DAILY 09/03/18 [History] Insulin Degludec [Tresiba] 18 units SQ HS 09/03/18 [History] Insulin Degludec [Tresiba] 38 units SQ QAM 09/03/18 [History] Pregabalin [Lyrica] 100 mg PO BID 09/03/18 [History] Albuterol Nebulized [Ventolin Nebulized] 2.5 mg INHALATION RT-QID PRN 01/05/19 [History] Insulin Lispro [humaLOG Kwikpen] 6 unit SQ AC-TID 01/05/19 [History] Apixaban [Eliquis] 5 mg PO BID 37 Days #88 tab 01/09/19 [Rx] Budesonide-Formot 160-4.5 Mcg [Symbicort 160-4.5 Mcg Inhaler] 2 puff INHALATION RT-BID 03/02/19 [History] Fluticasone/Vilanterol [Breo Ellipta 200-25 Mcg INH] 1 puff INHALATION RT-DAILY 03/02/19 [History] Ferrous Sulfate [Slow Release Iron] 250 mg PO AC-BID #60 tablet.er 03/07/19 [Rx] predniSONE 40 mg PO DAILY #4 tab 03/07/19 [Rx] Follow up Appointment(s)/Referral(s): Kai Chen DO [Primary Care Provider] - 1-2 days Ambulatory/Diagnostic Orders: Complete Blood Count w/diff [LAB.AMB] Time Frame: 3 Days, Location: None Selected Patient Instructions/Handouts: How to Stop Smoking (GEN) Activity/Diet/Wound Care/Special Instructions: Activity: as tolerated Diet: Carb consistent Special Instructions: Repeat blood count in 1 week Follow Blood count closely Seek medical attention if increasing fatigue, chest pain, more frequent bowel movement, or bright red blood in stools
--- NOTE | 2019-03-12 23:20 | CDI ---
Documentation Clarification Form Date: 03/13/19 From: David Sylvester Phone: If you have a question about this query, please contact Maria Dolores Diaz, Unix Developer at [phone] between 8am and 5pm. Admit Date: 03/02/19 Discharge Date: 03/07/19 Patient Name: Ashley Juarez Visit Number: [id number] ATTENTION: The Clinical Documentation Specialists (CDI) and [facility] Coding Staff appreciate your assistance in clarifying documentation. Please respond to the clarification below the line at the bottom and electronically sign. The CDI & [facility] Coding staff will review the response and follow-up if needed. Please note: Queries are made part of the Legal Health Record. If you have any questions, please contact the author of this message via ITS. Dear Giana Carrasco, Patient admitted with Acute blood loss anemia due to GI bleeding due to AVM. Recent diagnosis of right lower extremity DVT and PE is documented in the medical record.this was a provoked DVT in December as the patient had just returned from a car trip to [place] to see her son. Please specify the acuity of DVT and Pulmonary embolism condition with terms such as: Acute Chronic History Other (please specify in the medical record) Clinically unable to further specify Unknown History of DVT and Pulmonary embolism, Not acute MTDD
== END 2019-03-07 13:31 | disposition home or self-care (01) | DRG 378 ==
LOC: EC 15:22 → 3SCARD 17:04 → 4MS4W 03-06 14:30
PROVIDERS: ADMIT Family Medicine; ATTEND Family Medicine
PROC: 30233N1 Transfusion of Nonautologous Red Blood Cells into Peripheral Vein, Percutaneous Approach (ICD-10-PCS; 2019-03-02)
PROC: 0DB98ZX Excision of Duodenum, Via Natural or Artificial Opening Endoscopic, Diagnostic (ICD-10-PCS; principal; 2019-03-04 12:10)
PROC: 0W3P8ZZ Control Bleeding in Gastrointestinal Tract, Via Natural or Artificial Opening Endoscopic (ICD-10-PCS; principal; 2019-03-04 12:10)
PROC: 0DBL8ZX Excision of Transverse Colon, Via Natural or Artificial Opening Endoscopic, Diagnostic (ICD-10-PCS; principal; 2019-03-04 12:10)
PROC: 0DB78ZX Excision of Stomach, Pylorus, Via Natural or Artificial Opening Endoscopic, Diagnostic (ICD-10-PCS; principal; 2019-03-04 12:10)
PROC: 0DBH8ZX Excision of Cecum, Via Natural or Artificial Opening Endoscopic, Diagnostic (ICD-10-PCS; principal; 2019-03-04 12:10)
PROC: 0DBM8ZX Excision of Descending Colon, Via Natural or Artificial Opening Endoscopic, Diagnostic (ICD-10-PCS; principal; 2019-03-04 12:10)
PROC: 0DBN8ZX Excision of Sigmoid Colon, Via Natural or Artificial Opening Endoscopic, Diagnostic (ICD-10-PCS; principal; 2019-03-04 12:10)
PROC: 0DBK8ZX Excision of Ascending Colon, Via Natural or Artificial Opening Endoscopic, Diagnostic (ICD-10-PCS; principal; 2019-03-04 12:10)
DX: K31.811 Angiodysplasia of stomach and duodenum with bleeding (principal); D62 Acute posthemorrhagic anemia; E87.2 Acidosis; J44.1 Chronic obstructive pulmonary disease with (acute) exacerbation; J90 Pleural effusion, not elsewhere classified; J96.11 Chronic respiratory failure with hypoxia; E11.65 Type 2 diabetes mellitus with hyperglycemia; K21.9 Gastro-esophageal reflux disease without esophagitis; G43.909 Migraine, unspecified, not intractable, without status migrainosus; M19.90 Unspecified osteoarthritis, unspecified site; E78.5 Hyperlipidemia, unspecified; Z96.653 Presence of artificial knee joint, bilateral; F32.9 Major depressive disorder, single episode, unspecified; R50.9 Fever, unspecified; M79.7 Fibromyalgia; E66.9 Obesity, unspecified; F17.210 Nicotine dependence, cigarettes, uncomplicated; K63.5 Polyp of colon; I11.9 Hypertensive heart disease without heart failure; Z90.49 Acquired absence of other specified parts of digestive tract; Z90.89 Acquired absence of other organs; Z98.51 Tubal ligation status; Z98.42 Cataract extraction status, left eye; Z98.41 Cataract extraction status, right eye; Z99.81 Dependence on supplemental oxygen; Z86.718 Personal history of other venous thrombosis and embolism; Z79.01 Long term (current) use of anticoagulants; Z79.51 Long term (current) use of inhaled steroids; Z79.890 Hormone replacement therapy; Z79.899 Other long term (current) drug therapy; Z79.4 Long term (current) use of insulin; Z86.711 Personal history of pulmonary embolism; Z68.39 Body mass index [BMI] 39.0-39.9, adult
CPT/HCPCS: 36415; 43239; 43255; 45380; 45385; 71046; 80048; 80053; 81001; 82272; 82550; 82565; 82607; 82728; 82746; 83540; 83550; 83605; 83880; 84484; 85025; 85027; 85045; 85610; 85730; 86850; 86870; 86880; 86900; 86901; 86902; 86920; 87040; 88305; 93005; 93306; 93970; 94640; 94760; 96360; 96361; 99291

== ENCOUNTER 2019-03-14 18:31 | Inpatient (IN) | payer MEDICARE, OTHER ==
[2019-03-14] MEDS ORDERED: IPRATROPIUM-ALBUTEROL 3 ML NEB INHALATION STA (19:19)
[2019-03-14] MEDS ORDERED: methylPREDNISolone SOD SUCCI 125 MG/2 ML VIAL IV STA (19:19)
--- NOTE | 2019-03-14 19:28 | ED ---
Weakness HPI - General Chief complaint: Urogenital Stated complaint: Problems urinating Time Seen by Provider: 03/14/19 18:47 Source: patient, RN notes reviewed, old records reviewed Mode of arrival: ambulatory Limitations: no limitations - History of Present Illness Initial comments: This is a 71-year-old female here for multiple medical complaints. She presents by EMS for evaluation regarding increased urination patient is unable to sit still if she has to continually go to the bathroom. She also complains of severe shortness of breath especially with exertion. Patient states that she has not been taking Lasix increasing lower extremity edema and shortness of breath, patient has no current chest pain otherwise taking medications as directed. Patient states she recent hospital admission where she had low hemoglobin although denies blood in her stool or vomit MD Complaint: generalized weakness, lack of energy -: days(s) Location: generalized Severity: moderate Severity scale (1-10): 6 Consistency: constant Improves with: none Worsens with: movement, exertion Context: recent illness, history of similar Associated Symptoms: dysuria, loss of appetite, shortness of breath - Related Data Home Medications Medication Instructions Recorded Confirmed Levothyroxine Sodium [Synthroid] 112 mcg PO DAILY 10/26/15 03/02/19 Omeprazole 20 mg PO DAILY 10/26/15 03/02/19 Simvastatin [Zocor] 20 mg PO HS 10/26/15 03/02/19 Albuterol Sulfate [Proair Hfa] 2 puff INHALATION RT-QID PRN 09/03/18 03/02/19 DULoxetine HCL [Cymbalta] 60 mg PO DAILY 09/03/18 03/02/19 Diltiazem HCl [Diltiazem 24Hr ER] 120 mg PO DAILY 09/03/18 03/02/19 Insulin Degludec [Tresiba] 18 units SQ HS 09/03/18 03/02/19 Insulin Degludec [Tresiba] 38 units SQ QAM 09/03/18 03/02/19 Pregabalin [Lyrica] 100 mg PO BID 09/03/18 03/02/19 Albuterol Nebulized [Ventolin 2.5 mg INHALATION RT-QID PRN 01/05/19 03/02/19 Nebulized] Insulin Lispro [humaLOG Kwikpen] 6 unit SQ AC-TID 01/05/19 03/02/19 Budesonide-Formot 160-4.5 Mcg 2 puff INHALATION RT-BID 03/02/19 03/02/19 [Symbicort 160-4.5 Mcg Inhaler] Fluticasone/Vilanterol [Breo 1 puff INHALATION RT-DAILY 03/02/19 03/02/19 Ellipta 200-25 Mcg INH] Previous Rx's Medication Instructions Recorded Apixaban [Eliquis] 5 mg PO BID 37 Days #88 tab 01/09/19 Ferrous Sulfate [Slow Release Iron] 250 mg PO AC-BID #60 tablet.er 03/07/19 predniSONE 40 mg PO DAILY #4 tab 03/07/19 Allergies Allergy/AdvReac Type Severity Reaction Status Date / Time No Known Allergies Allergy Verified 03/14/19 18:47 Review of Systems ROS Statement: Those systems with pertinent positive or pertinent negative responses have been documented in the HPI. ROS Other: All systems not noted in ROS Statement are negative. Past Medical History Past Medical History: Diabetes Mellitus, GERD/Reflux, Hyperlipidemia, Hypertension, Skin Disorder, Thyroid Disorder Additional Past Medical History / Comment(s): migraines, arthritis, itchy sore s on back, History of Any Multi-Drug Resistant Organisms: None Reported Past Surgical History: Cholecystectomy, Joint Replacement, Tonsillectomy, Tubal Ligation Additional Past Surgical History / Comment(s): nik knee replacement, nik cataracts Past Anesthesia/Blood Transfusion Reactions: Motion Sickness Additional Past Anesthesia/Blood Transfusion Reaction / Comment(s): hard time waking up and SOB when waking up Past Psychological History: Depression Smoking Status: Current some day smoker Past Alcohol Use History: None Reported Past Drug Use History: None Reported - Past Family History Mother Family Medical History: No Reported History General Exam Limitations: no limitations General appearance: alert, anxious, in distress Head exam: Present: atraumatic, normocephalic, normal inspection Eye exam: Present: normal appearance, PERRL, EOMI. Absent: scleral icterus, conjunctival injection, periorbital swelling ENT exam: Present: normal exam, mucous membranes moist Neck exam: Present: normal inspection. Absent: tenderness, meningismus, lymph adenopathy Respiratory exam: Present: respiratory distress, wheezes, rales, rhonchi, accessory muscle use, decreased breath sounds, prolonged expiratory. Absent: stridor Cardiovascular Exam: Present: regular rate, normal rhythm, normal heart sounds. Absent: systolic murmur, diastolic murmur, rubs, gallop, clicks GI/Abdominal exam: Present: soft, normal bowel sounds. Absent: distended, tenderness, guarding, rebound, rigid Extremities exam: Present: normal inspection, full ROM, normal capillary refill. Absent: tenderness, pedal edema, joint swelling, calf tenderness Back exam: Present: normal inspection Neurological exam: Present: alert, oriented X3, CN II-XII intact Psychiatric exam: Present: normal affect, normal mood Skin exam: Present: warm, dry, intact, normal color. 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 Patient severely dyspneic breathing on 30 times a minute unable to catch her breath oxygen in the low 80s - Consultations Consultation #1: Spoke with Dr. Bermudez for sound was agreeable for admission EKG Findings - EKG Comments: EKG Findings:: EKG shows sinus rhythm rate of 88, NE 132, QRS 84, QTc 457 Medical Decision Making - Medical Decision Making 71 female here for evaluation of severe shortness of breath dysuria unable to urinate completely feels like she has to continually go to the bathroom. Severe shortness of breath, warble patient for pneumonia COPD and CHF - Lab Data Result diagrams: 03/14/19 19:19 03/14/19 19:19 Lab Results 03/14/19 03/14/19 03/14/19 Range/Units 19:19 19:19 19:19 WBC 16.0 H (3.8-10.6) k/uL RBC 4.47 (3.80-5.40) m/uL Hgb 10.1 L (11.4-16.0) gm/dL Hct 35.0 (34.0-46.0) % MCV 78.2 L (80.0-100.0) fL MCH 22.5 L (25.0-35.0) pg MCHC 28.8 L (31.0-37.0) g/dL RDW 19.0 H (11.5-15.5) % Plt Count 515 H (150-450) k/uL Neutrophils % 67 % Lymphocytes % 22 % Monocytes % 6 % Eosinophils % 4 % Basophils % 0 % Neutrophils # 10.7 H (1.3-7.7) k/uL Lymphocytes # 3.5 (1.0-4.8) k/uL Monocytes # 0.9 (0-1.0) k/uL Eosinophils # 0.6 (0-0.7) k/uL Basophils # 0.1 (0-0.2) k/uL Hypochromasia Marked Poikilocytosis Moderate Anisocytosis Slight Microcytosis Slight PT (9.0-12.0) sec INR (<1.2) APTT (22.0-30.0) sec Sodium 139 (137-145) mmol/L Potassium 4.5 (3.5-5.1) mmol/L Chloride 103 (98-107) mmol/L Carbon Dioxide 28 (22-30) mmol/L Anion Gap 8 mmol/L BUN 5 L (7-17) mg/dL Creatinine 0.45 L (0.52-1.04) mg/dL Est GFR (CKD-EPI)AfAm >90 (>60 ml/min/1.73 sqM) Est GFR (CKD-EPI)NonAf >90 (>60 ml/min/1.73 sqM) Glucose 113 H (74-99) mg/dL Calcium 9.6 (8.4-10.2) mg/dL Magnesium 2.0 (1.6-2.3) mg/dL Total Bilirubin 0.9 (0.2-1.3) mg/dL AST 19 (14-36) U/L ALT 13 (9-52) U/L Alkaline Phosphatase 80 (38-126) U/L Troponin I (0.000-0.034) ng/mL NT-Pro-B Natriuret Pep pg/mL Total Protein 6.2 L (6.3-8.2) g/dL Albumin 3.6 (3.5-5.0) g/dL Urine Color Yellow Urine Appearance Clear (Clear) Urine pH 7.5 (5.0-8.0) Ur Specific [place] 1.011 (1.001-1.035) Urine Protein Negative (Negative) Urine Glucose (UA) Negative (Negative) Urine Ketones Negative (Negative) Urine Blood Small H (Negative) Urine Nitrite Negative (Negative) Urine Bilirubin Negative (Negative) Urine Urobilinogen 3.0 (<2.0) mg/dL Ur Leukocyte Esterase Negative (Negative) Urine RBC 17 H (0-5) /hpf Urine WBC 1 (0-5) /hpf Ur Squamous Epith Cells 4 (0-4) /hpf Urine Mucus Rare H (None) /hpf 03/14/19 03/14/19 03/14/19 Range/Units 19:19 19:19 19:19 WBC (3.8-10.6) k/uL RBC (3.80-5.40) m/uL Hgb (11.4-16.0) gm/dL Hct (34.0-46.0) % MCV (80.0-100.0) fL MCH (25.0-35.0) pg MCHC (31.0-37.0) g/dL RDW (11.5-15.5) % Plt Count (150-450) k/uL Neutrophils % % Lymphocytes % % Monocytes % % Eosinophils % % Basophils % % Neutrophils # (1.3-7.7) k/uL Lymphocytes # (1.0-4.8) k/uL Monocytes # (0-1.0) k/uL Eosinophils # (0-0.7) k/uL Basophils # (0-0.2) k/uL Hypochromasia Poikilocytosis Anisocytosis Microcytosis PT 10.0 (9.0-12.0) sec INR 0.9 (<1.2) APTT 21.9 L (22.0-30.0) sec Sodium (137-145) mmol/L Potassium (3.5-5.1) mmol/L Chloride (98-107) mmol/L Carbon Dioxide (22-30) mmol/L Anion Gap mmol/L BUN (7-17) mg/dL Creatinine (0.52-1.04) mg/dL Est GFR (CKD-EPI)AfAm (>60 ml/min/1.73 sqM) Est GFR (CKD-EPI)NonAf (>60 ml/min/1.73 sqM) Glucose (74-99) mg/dL Calcium (8.4-10.2) mg/dL Magnesium (1.6-2.3) mg/dL Total Bilirubin (0.2-1.3) mg/dL AST (14-36) U/L ALT (9-52) U/L Alkaline Phosphatase (38-126) U/L Troponin I <0.012 (0.000-0.034) ng/mL NT-Pro-B Natriuret Pep 467 pg/mL Total Protein (6.3-8.2) g/dL Albumin (3.5-5.0) g/dL Urine Color Urine Appearance (Clear) Urine pH (5.0-8.0) Ur Specific [place] (1.001-1.035) Urine Protein (Negative) Urine Glucose (UA) (Negative) Urine Ketones (Negative) Urine Blood (Negative) Urine Nitrite (Negative) Urine Bilirubin (Negative) Urine Urobilinogen (<2.0) mg/dL Ur Leukocyte Esterase (Negative) Urine RBC (0-5) /hpf Urine WBC (0-5) /hpf Ur Squamous Epith Cells (0-4) /hpf Urine Mucus (None) /hpf - Radiology Data Radiology results: report reviewed (Chest x-ray does show CHF although mildly improved from prior exams), image reviewed Disposition Clinical Impression: Acute exacerbation of chronic obstructive airways disease, COPD exacerbation, CHF (congestive heart failure), UTI (urinary tract infection) Disposition: ADMITTED IP TO THIS [facility] Condition: Fair Is patient prescribed a controlled substance at d/c from ED?: No Referrals: Kai Chen DO [Primary Care Provider] - 1-2 days
[2019-03-14 19:55] LABS: INR 0.9 (<1.2)
[2019-03-14 19:57] LABS: Appearance,Urine Clear (Clear); Bilirubin,Urine Negative (Negative); Blood,Urine Small (Negative); Color,Urine Yellow; Glucose,Urine (UA) Negative (Negative); Ketones,Urine Negative (Negative); Leukocyte Esterase,Urine Negative (Negative); Mucus,Urine Rare /hpf; Nitrite,Urine Negative (Negative); PH, Urine 7.5 (5.0-8.0); Protein,Urine Negative (Negative); RBC,Urine 17 /hpf (0-5); Specific Gravity,Urine 1.011 (1.001-1.035); Squamous Epithelial Cell,Urine 4 /hpf (0-4); WBC,Urine 1 /hpf (0-5)
[2019-03-14 20:00] LABS: ALT 13 U/L (9-52); AST 19 U/L (14-36); African American GFR (CKD) >90 (>60 ml/min/1.73 sqM); Albumin 3.6 g/dL (3.5-5.0); Alkaline Phosphatase 80 U/L (38-126); Anion Gap 8 mmol/L; Blood Urea Nitrogen 5 mg/dL (7-17); Calcium 9.6 mg/dL (8.4-10.2); Carbon Dioxide 28 mmol/L (22-30); Chloride 103 mmol/L (98-107); Glucose 113 mg/dL (74-99); Non-African American GFR(CKD) >90 (>60 ml/min/1.73 sqM); Potassium 4.5 mmol/L (3.5-5.1); Sodium 139 mmol/L (137-145); Total Bilirubin 0.9 mg/dL (0.2-1.3); Total Protein 6.2 g/dL (6.3-8.2)
[2019-03-14 20:01] LABS: Partial Thromboplastin Time 21.9 sec (22.0-30.0)
[2019-03-14 20:04] LABS: Anisocytosis Slight; Basophils # (A) 0.1 k/uL (0-0.2); Basophils % (A) 0 %; Eosinophils # (A) 0.6 k/uL (0-0.7); Eosinophils % (A) 4 %; HGB 10.1 gm/dL (11.4-16.0); Hypochromasia Marked; Lymphocytes # (A) 3.5 k/uL (1.0-4.8); Lymphocytes % (A) 22 %; MCH 22.5 pg (25.0-35.0); MCHC 28.8 g/dL (31.0-37.0); MCV 78.2 fL (80.0-100.0); Mean Platelet Volume 7.7; Microcytosis Slight; Monocytes # (A) 0.9 k/uL (0-1.0); Monocytes % (A) 6 %; Neutrophils # (A) 10.7 k/uL (1.3-7.7); Neutrophils % (A) 67 %; Platelet Count 515 k/uL (150-450); Poikilocytosis Moderate; RBC 4.47 m/uL (3.80-5.40)
--- NOTE | 2019-03-14 20:16 | XR ---
EXAMINATION TYPE: XR chest 2V DATE OF EXAM: 03/14/2019 COMPARISON: 03/03/2019 HISTORY: Weakness TECHNIQUE: Frontal and lateral views of the chest are obtained. FINDINGS: There is mild blunting of the costophrenic angles. There is mild infiltrate at the posteri or lung bases. There is mild pulmonary congestion. There are chest leads. IMPRESSION: Mild congestive heart failure is improved compared to last exam. Inspiration improved.
[2019-03-14] MEDS ORDERED: FUROSEMIDE 10 MG/ML 4 ML VIAL IV SCH (21:00)
--- NOTE | 2019-03-15 01:00 | P.HPIM ---
History of Present Illness H&P Date: 03/14/19 Chief Complaint: Exertional dyspnea 79-year-old female with recent diagnosis of AVMs and GI bleeding and polyps in the colon. 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 She reports worsening exertional dyspnea and once she finished her course of prednisone she started wheezing again. Especially when she starts walking around her house she said she can't go to the bathroom without started wheezing and feeling short of breath. She reports chronic cough. And chronic swelling of her legs bilaterally. She also reported frequent urination recently but denies any abdominal pain denies any dysuria or hematuria fevers or chills denies any nausea vomiting. She uses home oxygen at 2 L however she noticed that every time she walks her oxygen saturation drops to the 80s. She is concerned and she is requesting to have bronchoscopy done In the ED chest x-ray showed improvement compared to before with very mild congestion. Her most recent echocardiogram showed no diastolic dysfunction and left ventricular ejection fraction of 5560 percent this was done in 03/03/2019 Patient admits to being noncompliant with her medications however she continues to take her inhalers. She has a walker at home that she doesn't use often. She lives with her granddaughter. Patient most concerned regarding her energy level and she feels that since the GI bleed that she had she's never back to her baseline. In the ED her hemoglobin today is at 10 which has significantly improved compared to when she was discharged. She denies any ongoing GI bleeding she reports normal bowel movements. She admits to having thromboembolic is him DVT and PE about 5 months ago and she is currently on Eliquis. She is to continue Eliquis for another one month. In the ED her urine was negative patient received a dose of Rocephin for presumed UTI this will be discontinued She had an EKG which was unremarkable. Patient has increased white count which is most likely secondary to recently being on steroids she just discontinued it about 3 days ago past when her symptoms got worse. Review of Systems Pertinent positives as noted in HPI. All other systems were reviewed and are negative Past Medical History Past Medical History: Diabetes Mellitus, Fibromyalgia, GERD/Reflux, GI Bleed, Hyperlipidemia, Hypertension, Skin Disorder, Thyroid Disorder Additional Past Medical History / Comment(s): migraines, arthritis, itchy sores on back, History of Any Multi-Drug Resistant Organisms: None Reported Past Surgical History: Cholecystectomy, Joint Replacement, Tonsillectomy, Tubal Ligation Additional Past Surgical History / Comment(s): nik knee replacement, nik cataracts Past Anesthesia/Blood Transfusion Reactions: Motion Sickness Additional Past Anesthesia/Blood Transfusion Reaction / Comment(s): hard time waking up and SOB when waking up Past Psychological History: Depression Smoking Status: Current some day smoker Past Alcohol Use History: None Reported Additional Past Alcohol Use History / Comment(s): Patient is a smoker one to 2 packs per day for greater than 50 years. She denies any marijuana, illicit drug use or alcohol use. She denies any recent travel. She lives at home with her granddaughter and they're in is a dog and a cat in the home. Past Drug Use History: None Reported - Past Family History Mother Family Medical History: No Reported History Medications and Allergies Home Medications Medication Instructions Recorded Confirmed Type Levothyroxine Sodium [Synthroid] 112 mcg PO DAILY 10/26/15 03/14/19 History Omeprazole 20 mg PO DAILY 10/26/15 03/14/19 History Simvastatin [Zocor] 20 mg PO HS 10/26/15 03/14/19 History Albuterol Sulfate [Proair Hfa] 2 puff INHALATION RT-QID PRN 09/03/18 03/14/19 History DULoxetine HCL [Cymbalta] 60 mg PO DAILY 09/03/18 03/14/19 History Diltiazem HCl [Diltiazem 24Hr ER] 120 mg PO DAILY 09/03/18 03/14/19 History Insulin Degludec [Tresiba] 18 units SQ HS 09/03/18 03/14/19 History Insulin Degludec [Tresiba] 38 units SQ QAM 09/03/18 03/14/19 History Pregabalin [Lyrica] 100 mg PO BID 09/03/18 03/14/19 History Albuterol Nebulized [Ventolin 2.5 mg INHALATION RT-QID PRN 01/05/19 03/14/19 History Nebulized] Insulin Lispro [humaLOG Kwikpen] 6 unit SQ AC-TID 01/05/19 03/14/19 History Apixaban [Eliquis] 5 mg PO BID 37 Days #88 tab 01/09/19 03/14/19 Rx Budesonide-Formot 160-4.5 Mcg 2 puff INHALATION RT-BID 03/02/19 03/14/19 History [Symbicort 160-4.5 Mcg Inhaler] Fluticasone/Vilanterol [Breo 1 puff INHALATION RT-DAILY 03/02/19 03/14/19 History Ellipta 200-25 Mcg INH] Ferrous Sulfate [Feosol] 325 mg PO BID 03/14/19 03/14/19 History Fexofenadine HCl [Jennifer Allergy] 180 mg PO DAILY 03/14/19 03/14/19 History Furosemide [Lasix] 20 mg PO DAILY 03/14/19 03/14/19 History Allergies Allergy/AdvReac Type Severity Reaction Status Date / Time No Known Allergies Allergy Verified 03/14/19 21:23 Physical Exam Vitals: Vital Signs Temp Pulse Pulse Resp BP BP Pulse Ox 03/14/19 22:50 97.4 F L 102 H 18 160/74 94 L 03/14/19 22:34 98.0 F 81 20 147/78 98 03/14/19 20:55 95 20 147/71 98 03/14/19 19:43 91 03/14/19 19:30 89 03/14/19 18:42 98.0 F 88 20 146/72 97 Intake and Output 03/14/19 03/14/19 03/15/19 14:59 22:59 06:59 Other: Voiding Method Toilet Weight 94.9 kg 94.9 kg Constitutional: No acute distress, conversant, pleasant Eyes: Anicteric sclerae, moist conjunctiva, no lid-lag Pupils equal round reactive to light ENMT: NC/AT Oropharynx clear, no erythema, exudates Neck: Supple, FROM, no masses, or JVD No carotid bruits No thyromegaly Lungs: Prolonged expiratory phase with expiratory wheezing diffused Clear to percussion Normal respiratory effort, no accessory muscle use Cardiovascular: Heart regular in rate and rhythm, No murmurs, gallops, or rubs +1 Leg edema peripherally over bilateral legs Abdominal: Soft Nontender, no guarding, rebound or rigidity Abdomen moving with respiration Normoactive bowel sounds No hepatomegaly, No splenomegaly No palpable mass No abdominal wall hernia noted Skin: Chronic skin changes over bilateral legs Normal temperature, tone, texture, turgor No induration No subcutaneous nodules No rash, lesions No ulcers Extremities: No digital cyanosis No clubbing Pedal pulses intact and symmetrical Radial pulses intact and symmetrical Bilateral leg discomfort to palpation Psychiatric: Alert and oriented to person, place and time Appropriate affect fair judgment Neuro Muscles Strength 4/5 in all 4 extremities Sensation to light touch grossly present throughout Cranial nerves II-XII grossly intact No focal sensory deficits Lymphatics: no palpable cervical or supraclavicular , or inguinal lymph nodes Results CBC & Chem 7: 03/14/19 19:19 03/14/19 19: Labs: Abnormal Lab Results - Last 24 Hours (Table) 03/14/19 03/14/19 03/14/19 Range/Units 19:19 19: 19:19 WBC 16.0 H (3.8-10.6) k/uL Hgb 10.1 L (11.4-16.0) gm/dL MCV 78.2 L (80.0-100.0) fL MCH 22.5 L (25.0-35.0) pg MCHC 28.8 L (31.0-37.0) g/dL RDW 19.0 H (11.5-15.5) % Plt Count 515 H (150-450) k/uL Neutrophils # 10.7 H (1.3-7.7) k/uL APTT (22.0-30.0) sec BUN 5 L (7-17) mg/dL Creatinine 0.45 L (0.52-1.04) mg/dL Glucose 113 H (74-99) mg/dL Total Protein 6.2 L (6.3-8.2) g/dL Urine Blood Small H (Negative) Urine RBC 17 H (0-5) /hpf Urine Mucus Rare H (None) /hpf 03/14/19 Range/Units 19:19 WBC (3.8-10.6) k/uL Hgb (11.4-16.0) gm/dL MCV (80.0-100.0) fL MCH (25.0-35.0) pg MCHC (31.0-37.0) g/dL RDW (11.5-15.5) % Plt Count (150-450) k/uL Neutrophils # (1.3-7.7) k/uL APTT 21.9 L (22.0-30.0) sec BUN (7-17) mg/dL Creatinine (0.52-1.04) mg/dL Glucose (74-99) mg/dL Total Protein (6.3-8.2) g/dL Urine Blood (Negative) Urine RBC (0-5) /hpf Urine Mucus (None) /hpf Thrombosis Risk Factor Assmnt - Choose All That Apply Each Factor Represents 1 point: Obesity (BMI >25), Swollen legs (current) Other Risk Factors: Yes Each Risk Factor Represents 3 Points: Age 75 years or older Other congenital or acquired thrombophilia - If yes, enter type in comment: No Thrombosis Risk Factor Assessment Total Risk Factor Score: 5 Thrombosis Risk Factor Assessment Level: High Risk Assessment and Plan Assessment: 79-year-old female with history of COPD on chronic hypoxic respiratory failure, history of DVT and PE on eliquis, recent diagnosis of AVMs with GI bleed. Presented due to exertional dyspnea wheezing and trouble breathing. Admitted as an inpatient with anticipated length of stay more than 2 midnight for management of acute COPD exacerbation urine was negative, no acute UTI, discontinue ABx CXR improved compared to before, with mild congestion , one dose of IV lasix in ED< resume home PO lasix Plan: Exertional dyspnea secondary to acute COPD exacerbation Chronic hypoxic respiratory failure By mouth steroids consider discharge on tapering dose of steroid over 2 weeks Breathing treatments continue home inhalers DuoNeb's when necessary Assessment oxygen requirement prior to discharge line stressed the importance of avoiding smoking Pulmonary consult for further recommendations Microcytic anemia secondary to recent GI bleeding secondary to AVMs Hemoglobin improved and stable Resume blood thinners Monitor hemoglobin closely Monitor for any evidence of GI bleeding Recent history of PE/DVT Continue Eliquis for 1 more month to get to finish a 6 month course No history of congestive heart failure Most recent echocardiogram showed no evidence of diastolic failure, left ventricular ejection fraction 55-60% Patient received 1 dose of Lasix in the ED, discontinue Continue with by mouth Lasix for peripheral edema in the legs which most likely secondary to varicose veins Hypertension resume home meds Diabetes mellitus resume home insulin dosing Add insulin sliding scale Assess for home health care prior to discharge Preformed a thorough record review from recent hospitalization *patient was hospitalized for GI bleeding secondary to AVMs which was confirmed by EGD and see scope patient also found to have 7 polyps in the colon Urine analysis was negative no evidence of UTI discontinue Rocephin CODE STATUS: No code DVT prophylaxis: Patient on Eliquis for recent diagnosis of DVT and PE 5 months ago Discussed with: Patient, ER, RN Anticipated length of stay more than [address]: Home home health care A total of 60 minutes was spent on the care of this complex patient more than 50% of the time was spent in counseling and care coordination.
[2019-03-15] MEDS ORDERED: INSULIN DETEMIR (LEVEMIR) 100 UNIT/ML SYR SQ SCH ×2 (07:00→21:00)
[2019-03-15 07:19] LABS: Glucose,Whole Blood 252 mg/dL (75-99)
[2019-03-15] MEDS: SYMBICORT 160-4.5 MCG INHALER INHALATION SCH ×2 (07:54→19:08)
[2019-03-15] MEDS: IPRATROPIUM-ALBUTEROL 3 ML NEB INHALATION PRN ×4 (07:54→19:08)
[2019-03-15] MEDS: INSULIN ASPART (NovoLOG) 100 UNIT/ML VIAL SQ SCH ×5 (08:47→22:02)
[2019-03-15] MEDS: LEVOTHYROXINE 112 MCG TAB PO SCH (08:48)
[2019-03-15] MEDS: PANTOPRAZOLE 40 MG TABLET PO SCH (08:48)
[2019-03-15] MEDS: PREGABALIN 100 MG CAP PO SCH ×2 (08:48→21:30)
[2019-03-15] MEDS: APIXABAN 5 MG TAB PO SCH ×2 (08:48→21:27)
[2019-03-15] MEDS: FERROUS SULFATE 325 MG TAB PO SCH ×2 (08:48→21:27)
[2019-03-15] MEDS: predniSONE 20 MG TAB PO SCH (08:48)
[2019-03-15] MEDS: DULoxetine HCL 60 MG CAPSULE.DR PO SCH (08:48)
[2019-03-15] MEDS: LORATADINE 10 MG TAB PO SCH (08:48)
[2019-03-15 08:50] LABS: Anisocytosis Slight; Basophils % (A) 0 %; Eosinophils % (A) 0 %; HCT 32.6 % (34.0-46.0); HGB 9.5 gm/dL (11.4-16.0); Hypochromasia Marked; Lymphocytes % (A) 19 %; MCH 22.5 pg (25.0-35.0); MCV 77.7 fL (80.0-100.0); Mean Platelet Volume 7.7; Microcytosis Slight; Monocytes # (A) 0.1 k/uL (0-1.0); Monocytes % (A) 1 %; Neutrophils # (A) 8.5 k/uL (1.3-7.7); Neutrophils % (A) 79 %; Platelet Count 492 k/uL (150-450); Poikilocytosis Moderate; RBC 4.19 m/uL (3.80-5.40); RDW 18.7 % (11.5-15.5); WBC 10.8 k/uL (3.8-10.6)
[2019-03-15 08:54] LABS: ALT 19 U/L (9-52); AST 16 U/L (14-36); African American GFR (CKD) >90 (>60 ml/min/1.73 sqM); Albumin 3.3 g/dL (3.5-5.0); Alkaline Phosphatase 73 U/L (38-126); Anion Gap 7 mmol/L; Blood Urea Nitrogen 10 mg/dL (7-17); Calcium 9.4 mg/dL (8.4-10.2); Carbon Dioxide 29 mmol/L (22-30); Chloride 102 mmol/L (98-107); Glucose 227 mg/dL (74-99); Non-African American GFR(CKD) >90 (>60 ml/min/1.73 sqM); Potassium 4.9 mmol/L (3.5-5.1); Sodium 138 mmol/L (137-145); Total Bilirubin 0.9 mg/dL (0.2-1.3); Total Protein 5.7 g/dL (6.3-8.2)
[2019-03-15] MEDS ORDERED: FUROSEMIDE 20 MG TAB PO SCH (09:00)
[2019-03-15] MEDS ORDERED: ENOXAPARIN 40 MG/0.4 ML SYRINGE SQ SCH (09:00)
[2019-03-15 10:46] VITALS: BMI 38.2
[2019-03-15] MEDS: DILTIAZEM CD 120 MG CAP.ER.24H PO SCH (10:48)
[2019-03-15 11:44] LABS: Glucose,Whole Blood 280 mg/dL (75-99)
[2019-03-15] MEDS ORDERED: FUROSEMIDE 10 MG/ML 2 ML VIAL IV ONE (12:39)
[2019-03-15] MEDS ORDERED: ACETAMINOPHEN TAB 325 MG TAB PO PRN (14:24)
[2019-03-15] MEDS ORDERED: MELATONIN 5 MG TABLET PO PRN (14:24)
[2019-03-15] MEDS ORDERED: ONDANSETRON 4 MG/2 ML VIAL IVP PRN (14:24)
--- NOTE | 2019-03-15 14:26 | P.CNPUL ---
History of Present Illness Consult date: 03/15/19 Reason for consult: dyspnea Chief complaint: Dyspnea, cough History of present illness: This is a 79-year-old white female patient with recent history of pulmonary embolism and right femoral DVT, for which the patient was started on Eliquis, past medical history of COPD on home oxygen, chronic and ongoing history of sm oking, diabetes mellitus, hypertension, hyperlipidemia, hypothyroidism, who presents to the hospital yesterday on 03/14/2019 for evaluation of worsening shortness of breath, frequent urination, some limited cough, and phlegm production. A rattly patient was not taking her Lasix and she was having w orsening lower extremity edema. No chest pain, she did admit to chills, patient's last cigarette according to her was 4 days ago. She is on a combination of Breo-Ellipta, Ventolin and nebulized albuterol at home. Chest x- ray on 03/14/2019 showed mild congestive heart failure with mild blunting of the costophrenic angles, and mild infiltrate in the posterior lung bases. Labs showed a white blood cell count of 16.0, hemoglobin of 10.1, platelet count is 515, coagulation profile was within normal limits, electrolytes were within normal limits be on was 5 creatinine 0.45, troponin was negative, proBNP was 467, urinalysis showed some RBCs but negative for signs of infection. Urine culture is pending. Antibiotics were started, patient was given a dose of IV Lasix and her home dose of 40 of Lasix was resumed. Oral prednisone was started along with breathing treatments, and patient is seen on medical surgical floor, appears to be in no acute distress Review of Systems All systems: negative Constitutional: Denies chills, Denies fever Eyes: denies blurred vision, denies pain Ears, nose, mouth and throat: Denies headache, Denies sore throat Cardiovascular: Reports dyspnea on exertion, Reports leg edema, Reports shortness of breath, Denies chest pain Respiratory: Reports dyspnea, Reports home oxygen, Denies cough Gastrointestinal: Denies abdominal pain, Denies diarrhea, Denies nausea, Denies vomiting Genitourinary: Denies dysuria, Denies hematuria Musculoskeletal: Denies myalgias Integumentary: Denies pruritus, Denies rash Neurological: Denies numbness, Denies weakness Psychiatric: Denies anxiety, Denies depression Endocrine: Denies fatigue, Denies weight change Past Medical History Past Medical History: Diabetes Mellitus, Fibromyalgia, GERD/Reflux, GI Bleed, Hyperlipidemia, Hypertension, Skin Disorder, Thyroid Disorder Additional Past Medical History / Comment(s): migraines, arthritis, itchy sores on back, History of Any Multi-Drug Resistant Organisms: None Reported Past Surgical History: Cholecystectomy, Joint Replacement, Tonsillectomy, Tubal Ligation Additional Past Surgical History / Comment(s): nik knee replacement, nik cataracts Past Anesthesia/Blood Transfusion Reactions: Motion Sickness Additional Past Anesthesia/Blood Transfusion Reaction / Comment(s): hard time waking up and SOB when waking up Past Psychological History: Depression Smoking Status: Current some day smoker Past Alcohol Use History: None Reported Additional Past Alcohol Use History / Comment(s): Patient is a smoker one to 2 packs per day for greater than 50 years. She denies any marijuana, illicit drug use or alcohol use. She denies any recent travel. She lives at home with her granddaughter and they're in is a dog and a cat in the home. Past Drug Use History: None Reported - Past Family History Mother Family Medical History: No Reported History Medications and Allergies Home Medications Medication Instructions Recorded Confirmed Type Levothyroxine Sodium [Synthroid] 112 mcg PO DAILY 10/26/15 03/14/19 History Omeprazole 20 mg PO DAILY 10/26/15 03/14/19 History Simvastatin [Zocor] 20 mg PO HS 10/26/15 03/14/19 History Albuterol Sulfate [Proair Hfa] 2 puff INHALATION RT-QID PRN 09/03/18 03/14/19 History DULoxetine HCL [Cymbalta] 60 mg PO DAILY 09/03/18 03/14/19 History Diltiazem HCl [Diltiazem 24Hr ER] 120 mg PO DAILY 09/03/18 03/14/19 History Insulin Degludec [Tresiba] 18 units SQ HS 09/03/18 03/14/19 History Insulin Degludec [Tresiba] 38 units SQ QAM 09/03/18 03/14/19 History Pregabalin [Lyrica] 100 mg PO BID 09/03/18 03/14/19 History Albuterol Nebulized [Ventolin 2.5 mg INHALATION RT-QID PRN 01/05/19 03/14/19 History Nebulized] Insulin Lispro [humaLOG Kwikpen] 6 unit SQ AC-TID 01/05/19 03/14/19 History Apixaban [Eliquis] 5 mg PO BID 37 Days #88 tab 01/09/19 03/14/19 Rx Budesonide-Formot 160-4.5 Mcg 2 puff INHALATION RT-BID 03/02/19 03/14/19 History [Symbicort 160-4.5 Mcg Inhaler] Fluticasone/Vilanterol [Breo 1 puff INHALATION RT-DAILY 03/02/19 03/14/19 History Ellipta 200-25 Mcg INH] Ferrous Sulfate [Feosol] 325 mg PO BID 03/14/19 03/14/19 History Fexofenadine HCl [Jennifer Allergy] 180 mg PO DAILY 03/14/19 03/14/19 History Furosemide [Lasix] 40 mg PO DAILY 03/14/19 03/15/19 History Allergies Allergy/AdvReac Type Severity Reaction Status Date / Time No Known Allergies Allergy Verified 03/14/19 21:23 Physical Exam Vitals: Vital Signs Temp Pulse Pulse Resp BP BP Pulse Ox 03/15/19 11:41 84 03/15/19 11:28 86 03/15/19 08:04 88 03/15/19 07:54 90 03/15/19 04:50 97.6 F 92 18 137/74 94 L 03/14/19 22:50 97.4 F L 102 H 18 160/74 94 L 03/14/19 22:34 98.0 F 81 20 147/78 98 03/14/19 20:55 95 20 147/71 98 03/14/19 19:43 91 03/14/19 19:30 89 03/14/19 18:42 98.0 F 88 20 146/72 97 Intake and Output 03/14/19 03/15/19 03/15/19 22:59 06:59 14:59 Other: Voiding Method Toilet Toilet Toilet Bedside Commode Bedside Commode # Voids 2 # Bowel Movements 0 Weight 94.9 kg 94.9 kg 94.9 kg GENERAL EXAM: Alert, pleasant, 79-year-old white female, a 2 is of oxygen with a pulse ox of 94%, comfortable in no apparent distress. HEAD: Normocephalic/atraumatic. EYES: Normal reaction of pupils, equal size. Conjunctiva pink, sclera white. NOSE: Clear with pink turbinates. THROAT: No erythema or exudates. NECK: No masses, no JVD, no thyroid enlargement, no adenopathy. CHEST: No chest wall deformity. Symmetrical expansion. LUNGS: Equal air entry with diminished air entry bilaterally, end expiratory wheezes CVS: Regular rate and rhythm, normal S1 and S2, no gallops, no murmurs, no rubs ABDOMEN: Soft, nontender. No hepatosplenomegaly, normal bowel sounds, no guarding or rigidity. EXTREMITIES: No clubbing, 1+ lower extremity edema no cyanosis, 2+ pulses and upper and lower extremities. MUSCULOSKELETAL: Muscle strength and tone normal. SPINE: No scoliosis or deformity SKIN: No rashes CENTRAL NERVOUS SYSTEM: Alert and oriented -3. No focal deficits, tone is normal in all 4 extremities. PSYCHIATRIC: Alert and oriented -3. Appropriate affect. Intact judgment and insight. Results - Laboratory Findings CBC and BMP: 03/15/19 07:48 03/15/19 07:48 PT/INR, D-dimer PT 10.0 sec (9.0-12.0) 03/14/19 19:19 INR 0.9 (<1.2) 03/14/19 19:19 Abnormal lab findings: Abnormal Labs 03/14/19 03/14/19 12 19:19 19:19 19:19 WBC 16.0 H Hgb 10.1 L Hct MCV 78.2 L MCH 22.5 L MCHC 28.8 L RDW 19.0 H Plt Count 515 H Neutrophils # 10.7 H APTT BUN 5 L Creatinine 0.45 L Glucose 113 H POC Glucose (mg/dL) Total Protein 6.2 L Albumin Urine Blood Small H Urine RBC 17 H Urine Mucus Rare H 03/14/19 03/15/19 03/15/19 19:19 07:15 07:48 WBC 10.8 H Hgb 9.5 L Hct 32.6 L MCV 77.7 L MCH 22.5 L MCHC 29.0 L RDW 18.7 H Plt Count 492 H Neutrophils # 8.5 H APTT 21.9 L BUN Creatinine Glucose POC Glucose (mg/dL) 252 H Total Protein Albumin Urine Blood Urine RBC Urine Mucus 03/15/19 03/15/19 07:48 11:43 WBC Hgb Hct MCV MCH MCHC RDW Plt Count Neutrophils # APTT BUN Creatinine 0.42 L Glucose 227 H POC Glucose (mg/dL) 280 H Total Protein 5.7 L Albumin 3.3 L Urine Blood Urine RBC Urine Mucus - Diagnostic Findings Chest x-ray: report reviewed, image reviewed Assessment and Plan Plan: Assessment: #1. Acute exacerbation of chronic obstructive pulmonary disease #2. Fluid overload, possible exacerbation of congestive heart failure, previously patient was documented to have preserved LV function with EF of 55- 60%, mild MR, mild TR, no evidence of pulmonary hypertension. Chest x-ray zeke wed evidence of mild congestive heart failure, wanting of the costophrenic angles, mild pulmonary congestion #3. Recent ecchymosis of pulmonary embolism and lower extremity DVT, on Eliquis #4. Recent diagnosis of GI bleeding and AVMs #5. Advanced COPD with chronic hypoxic respiratory failure #6. Chronic and ongoing history of smoking #7. Hypertension #8. Diabetes mellitus type 2 #9. Hypothyroidism #10. Depression Plan: Continue with maintenance dose of oral Lasix, chest x-ray has been reviewed showing fluid overload, mild pleuritic congestion, and small pleural effusions, continue IV steroids, continue nebulized bronchodilators and antibiotics, continue oral anticoagulation. I performed a history & physical examination of the patient and discussed their management with my nurse practitioner, Becky Garcia. I reviewed the nurse practitioner's note and agree with the documented findings and plan of care. Lung sounds are positive for diffuse wheezes throughout the lung montoya. The findings and the impression was discussed with the patient. I attest to the documentation by the nurse practitioner. Time with Patient: Greater than 30
[2019-03-15] MEDS: AMOXIC-POT CLAV 875-125MG 1 EACH TAB PO SCH (15:36)
[2019-03-15 16:56] LABS: Glucose,Whole Blood 394 mg/dL (75-99)
--- NOTE | 2019-03-15 19:38 | P.PN ---
Subjective Progress Note Date: 03/15/19 (Delayed charting seen) Principal diagnosis: Shortness of breath Patient is a 79-year-old female who was recently and admitted and discharged home 03/07 after being treated for 2 bleeding AVM anemia and COPD exacerbation, recent DVT, COPD, diabetes and multiple other comorbid conditions who presented to the emergency department with shortness of breath. On arrival to the ER this hospital stay her vital signs within normal limits. Laboratory analysis showed an elevated white blood cell count at 16 which was felt to be secondary to her recent steroids. Hemoglobin was 10.1 which is up from prior discharge. Platelet count was 515 which was felt to be reactive, BNP was 467, and urinalysis was negative. She is given bronchodilators and steroids in the emergency department. She was admitted for further monitoring. In the morning after admission she was found to be slightly hyperglycemic. She had been on insulin sliding scale and her long-acting insulin was adjusted. She was also has non-fixed dose insulin. She had already had significant improvement in her breathing. She had been discharged home on a steroid taper and had done well until steroid taper had stopped. Patient seen and examined at bedside. We discussed that she did not have any signs of congestive heart failure her last echocardiogram that her BNP was normal. She reports that her shortness of breath and wheezing were better after bronchodilators and steroids. No nausea or vomiting. No blood in her stools. Objective - Vital Signs Vital signs: Vital Signs Temp 98.3 F 03/15/19 12:54 Pulse 86 03/15/19 15:52 Resp 20 03/15/19 12:54 BP 132/62 03/15/19 12:54 Pulse Ox 93 L 03/15/19 12:54 Intake & Output 03/15/19 03/15/19 03/16/19 06:59 18:59 06:59 Intake Total 800 Balance 800 Weight 94.9 kg 94.9 kg Intake: Oral 800 Other: Voiding Method Toilet Toilet Bedside Commode Bedside Commode # Voids 2 1 # Bowel Movements 0 - Exam General: non toxic, no distress, appears at stated age Derm: steven appearance to bilateral lower extremities with skin thickening, warm, dry Head: atraumatic, normocephalic, symmetric Eyes: EOMI, no lid lag, anicteric sclera Mouth: no lip lesion, mucus membranes moist Cardiovascular: S1S2 reg, no murmur, positive posterior tibial pulse bilateral, Lungs: decreased breath sounds and wheeze left base, no rhonchi, no rales , no accessory muscle use Abdominal: soft, nontender to palpation, no guarding, no appreciable organomegaly Ext: no gross muscle atrophy, 3+ edema, no contractures Neuro: CN II-XI grossly intact, no focal neuro deficits Psych: Alert, oriented, appropriate affect - Labs CBC & Chem 7: 03/15/19 07:48 03/15/19 07:48 Labs: Abnormal Lab Results - Last 24 Hours (Table) 03/14/19 03/14/19 03/14/19 Range/Units : 19: 19:19 WBC 16.0 H (3.8-10.6) k/uL Hgb 10.1 L (11.4-16.0) gm/dL Hct (34.0-46.0) % MCV 78.2 L (80.0-100.0) fL MCH 22.5 L (25.0-35.0) pg MCHC 28.8 L (31.0-37.0) g/dL RDW 19.0 H (11.5-15.5) % Plt Count 515 H (150-450) k/uL Neutrophils # 10.7 H (1.3-7.7) k/uL APTT (22.0-30.0) sec BUN 5 L (7-17) mg/dL Creatinine 0.45 L (0.52-1.04) mg/dL Glucose 113 H (74-99) mg/dL POC Glucose (mg/dL) (75-99) mg/dL Total Protein 6.2 L (6.3-8.2) g/dL Albumin (3.5-5.0) g/dL Urine Blood Small H (Negative) Urine RBC 17 H (0-5) /hpf Urine Mucus Rare H (None) /hpf 03/14/19 03/15/19 03/15/19 Range/Units : 07:15 07:48 WBC 10.8 H (3.8-10.6) k/uL Hgb 9.5 L (11.4-16.0) gm/dL Hct 32.6 L (34.0-46.0) % MCV 77.7 L (80.0-100.0) fL MCH 22.5 L (25.0-35.0) pg MCHC 29.0 L (31.0-37.0) g/dL RDW 18.7 H (11.5-15.5) % Plt Count 492 H (150-450) k/uL Neutrophils # 8.5 H (1.3-7.7) k/uL APTT 21.9 L (22.0-30.0) sec BUN (7-17) mg/dL Creatinine (0.52-1.04) mg/dL Glucose (74-99) mg/dL POC Glucose (mg/dL) 252 H (75-99) mg/dL Total Protein (6.3-8.2) g/dL Albumin (3.5-5.0) g/dL Urine Blood (Negative) Urine RBC (0-5) /hpf Urine Mucus (None) /hpf 03/15/19 03/15/19 03/15/19 Range/Units 07:48 11:43 16:54 WBC (3.8-10.6) k/uL Hgb (11.4-16.0) gm/dL Hct (34.0-46.0) % MCV (80.0-100.0) fL MCH (25.0-35.0) pg MCHC (31.0-37.0) g/dL RDW (11.5-15.5) % Plt Count (150-450) k/uL Neutrophils # (1.3-7.7) k/uL APTT (22.0-30.0) sec BUN (7-17) mg/dL Creatinine 0.42 L (0.52-1.04) mg/dL Glucose 227 H (74-99) mg/dL POC Glucose (mg/dL) 280 H 394 H (75-99) mg/dL Total Protein 5.7 L (6.3-8.2) g/dL Albumin 3.3 L (3.5-5.0) g/dL Urine Blood (Negative) Urine RBC (0-5) /hpf Urine Mucus (None) /hpf Microbiology - Last 24 Hours (Table) 03/14/19 19:19 Urine Culture - Preliminary Urine,Clean Catch Assessment and Plan Assessment: Acute exacerbation of COPD, failed outpatient treatment with chronic hypoxic respiratory failure -Continue with oral steroids, bronchodilators, Augmentin -Pulmonary limitations appreciated -Pulmonary hygiene Diabetes mellitus type 2 with hyperglycemia -Continue with Levemir slightly increased dose, sliding scale insulin, and fixed dose insulin -Follow blood sugars -Hemoglobin A1c 7.5 in August 2018 Recent GI bleed secondary to AVM -Continue with PPI -Follow CBC Acute blood loss anemia secondary to recent GI bleed -Hemoglobin improving -Continue with ferrous sulfate -Monitor for signs of rebleeding Chronic lower extremity edema -No signs of CHF on last echo with preserved ejection fraction -IV Lasix 1 and then resume oral Lasix. 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
[2019-03-15 20:41] LABS: Glucose,Whole Blood 430 mg/dL (75-99)
[2019-03-15] MEDS: INSULIN DETEMIR (LEVEMIR) 100 UNIT/ML SYR SQ SCH (21:26)
[2019-03-15] MEDS: ATORVASTATIN 10 MG TAB PO SCH (21:27)
[2019-03-16 02:22] LABS: Glucose,Whole Blood 147 mg/dL (75-99)
[2019-03-16] MEDS: LEVOTHYROXINE 112 MCG TAB PO SCH (06:31)
[2019-03-16] MEDS: SYMBICORT 160-4.5 MCG INHALER INHALATION SCH ×2 (06:55→18:56)
[2019-03-16] MEDS: IPRATROPIUM-ALBUTEROL 3 ML NEB INHALATION PRN ×2 (06:55→18:56)
[2019-03-16 06:57] LABS: Glucose,Whole Blood 161 mg/dL (75-99)
[2019-03-16] MEDS: PREGABALIN 100 MG CAP PO SCH ×2 (07:52→21:09)
[2019-03-16] MEDS: AMOXIC-POT CLAV 875-125MG 1 EACH TAB PO SCH ×2 (07:52→21:09)
[2019-03-16] MEDS: FERROUS SULFATE 325 MG TAB PO SCH ×2 (07:52→21:09)
[2019-03-16] MEDS: APIXABAN 5 MG TAB PO SCH ×2 (07:52→21:09)
[2019-03-16] MEDS: FUROSEMIDE 40 MG TAB PO SCH (07:52)
[2019-03-16] MEDS: LORATADINE 10 MG TAB PO SCH (07:52)
[2019-03-16] MEDS: predniSONE 20 MG TAB PO SCH (07:52)
[2019-03-16] MEDS: PANTOPRAZOLE 40 MG TABLET PO SCH (07:52)
[2019-03-16] MEDS: INSULIN ASPART (NovoLOG) 100 UNIT/ML VIAL SQ SCH ×7 (07:53→21:08)
[2019-03-16] MEDS: INSULIN DETEMIR (LEVEMIR) 100 UNIT/ML SYR SQ SCH ×2 (07:53→21:08)
[2019-03-16] MEDS: DULoxetine HCL 60 MG CAPSULE.DR PO SCH (07:53)
[2019-03-16] MEDS: DILTIAZEM CD 120 MG CAP.ER.24H PO SCH (07:54)
[2019-03-16 08:03] LABS: Anisocytosis Slight; HCT 30.3 % (34.0-46.0); HGB 8.8 gm/dL (11.4-16.0); Hypochromasia Marked; MCH 22.5 pg (25.0-35.0); MCHC 29.1 g/dL (31.0-37.0); MCV 77.4 fL (80.0-100.0); Mean Platelet Volume 7.4; Microcytosis Moderate; Platelet Count 562 k/uL (150-450); Poikilocytosis Moderate; RBC 3.91 m/uL (3.80-5.40); WBC 19.3 k/uL (3.8-10.6)
[2019-03-16 08:19] LABS: African American GFR (CKD) >90 (>60 ml/min/1.73 sqM); Anion Gap 8 mmol/L; Blood Urea Nitrogen 12 mg/dL (7-17); Calcium 9.5 mg/dL (8.4-10.2); Carbon Dioxide 29 mmol/L (22-30); Chloride 102 mmol/L (98-107); Glucose 78 mg/dL (74-99); Non-African American GFR(CKD) >90 (>60 ml/min/1.73 sqM); Potassium 4.3 mmol/L (3.5-5.1); Sodium 139 mmol/L (137-145)
[2019-03-16 11:48] LABS: Glucose,Whole Blood 126 mg/dL (75-99)
--- NOTE | 2019-03-16 12:16 | P.PN ---
Subjective Progress Note Date: 03/16/19 Principal diagnosis: Dyspnea and cough This is a 79-year-old white female patient with recent history of pulmonary embolism and right femoral DVT, for which the patient was started on Eliquis, past medical history of COPD on home oxygen, chronic and ongoing history of smoking, diabetes mellitus, hypertension, hyperlipidemia, hypothyroidism, who presents to the hospital yesterday on 03/14/2019 for evaluation of worsening shortness of breath, frequent urination, some limited cough, and phlegm production. A rattly patient was not taking her Lasix and she was having worsening lower extremity edema. No chest pain, she did admit to chills, patient's last cigarette according to her was 4 days ago. She is on a combination of Breo-Ellipta, Ventolin and nebulized albuterol at home. Chest x- ray on 03/14/2019 showed mild congestive heart failure with mild blunting of the costophrenic angles, and mild infiltrate in the posterior lung bases. Labs showed a white blood cell count of 16.0, hemoglobin of 10.1, platelet count is 515, coagulation profile was within normal limits, electrolytes were within normal limits be on was 5 creatinine 0.45, troponin was negative, proBNP was 467, urinalysis showed some RBCs but negative for signs of infection. Urine culture is pending. Antibiotics were started, patient was given a dose of IV Lasix and her home dose of 40 of Lasix was resumed. Oral prednisone was started along with breathing treatments, and patient is seen on medical surgical floor, appears to be in no acute distress On 03/16/2019 patient is seen in follow-up on medical surgical floor. She sits up unaided to bed, she states she is feeling much better today, less short of breath, lung sounds reveal diminished breath sounds with few basilar crackles, no wheezing. Afebrile, she remains on 2 L of oxygen with a pulse ox of 95%, hemodynamically stable. She is on antibiotics, and her urine culture was positive for 2 gram-negative bacilli species, final culture is pending. Rattly on Augmentin for antibiotic coverage. No acute issues overnight. She remains on maintenance dose of oral Lasix. Follow-up chest x-rays pending today Objective - Vital Signs Vital signs: Vital Signs Temp 98.0 F 03/16/19 04:57 Pulse 78 03/16/19 07:06 Resp 20 03/16/19 04:57 BP 113/58 03/16/19 04:57 Pulse Ox 95 03/16/19 04:57 Intake & Output 03/15/19 03/16/19 03/16/19 18:59 06:59 18:59 Intake Total 800 Balance 800 Weight 94.9 kg 95 kg Intake: Oral 800 Other: Voiding Method Toilet Toilet Bedside Commode Bedside Commode # Voids 1 3 # Bowel Movements 0 - Exam GENERAL EXAM: Alert, pleasant, 79-year-old white female, a 2 is of oxygen with a pulse ox of 95%, comfortable in no apparent distress. HEAD: Normocephalic/atraumatic. EYES: Normal reaction of pupils, equal size. Conjunctiva pink, sclera white. NOSE: Clear with pink turbinates. THROAT: No erythema or exudates. NECK: No masses, no JVD, no thyroid enlargement, no adenopathy. CHEST: No chest wall deformity. Symmetrical expansion. LUNGS: Equal air entry with diminished air entry bilaterally, and basilar rales CVS: Regular rate and rhythm, normal S1 and S2, no gallops, no murmurs, no rubs ABDOMEN: Soft, nontender. No hepatosplenomegaly, normal bowel sounds, no guarding or rigidity. EXTREMITIES: No clubbing, 1+ lower extremity edema no cyanosis, 2+ pulses and upper and lower extremities. MUSCULOSKELETAL: Muscle strength and tone normal. SPINE: No scoliosis or deformity SKIN: No rashes CENTRAL NERVOUS SYSTEM: Alert and oriented -3. No focal deficits, tone is normal in all 4 extremities. PSYCHIATRIC: Alert and oriented -3. Appropriate affect. Intact judgment and insight. - Labs CBC & Chem 7: 03/16/19 07:37 03/16/19 07:37 Labs: Abnormal Lab Results - Last 24 Hours (Table) 03/15/19 03/15/19 03/16/19 Range/Units 16:54 20:40 02:21 WBC (3.8-10.6) k/uL Hgb (11.4-16.0) gm/dL Hct (34.0-46.0) % MCV (80.0-100.0) fL MCH (25.0-35.0) pg MCHC (31.0-37.0) g/dL RDW (11.5-15.5) % Plt Count (150-450) k/uL POC Glucose (mg/dL) 394 H 430 H 147 H (75-99) mg/dL 03/16/19 03/16/19 03/16/19 Range/Units 06:56 07:37 11:46 WBC 19.3 H (3.8-10.6) k/uL Hgb 8.8 L (11.4-16.0) gm/dL Hct 30.3 L (34.0-46.0) % MCV 77.4 L (80.0-100.0) fL MCH 22.5 L (25.0-35.0) pg MCHC 29.1 L (31.0-37.0) g/dL RDW 19.0 H (11.5-15.5) % Plt Count 562 H (150-450) k/uL POC Glucose (mg/dL) 161 H 126 H (75-99) mg/dL Microbiology - Last 24 Hours (Table) 03/14/19 19:19 Urine Culture - Preliminary Urine,Clean Catch Gram Neg Bacilli Gram Neg Bacilli#2 Assessment and Plan Plan: Assessment: #1. Acute exacerbation of chronic obstructive pulmonary disease #2. Fluid overload, possible exacerbation of congestive heart failure, previously patient was documented to have preserved LV function with EF of 55- 60%, mild MR, mild TR, no evidence of pulmonary hypertension. Chest x-ray showed evidence of mild congestive heart failure, wanting of the costophrenic angles, mild pulmonary congestion #3. Urinary tract infection, cultures positive for to gram-negative bacilli organisms, final cultures pending #4. Recent pulmonary embolism and lower extremity DVT, on Eliquis #5. Recent diagnosis of GI bleeding and AVMs #6. Advanced COPD with chronic hypoxic respiratory failure #7. Chronic and ongoing history of smoking #8. Hypertension #9. Diabetes mellitus type 2 #10. Hypothyroidism #11 Depression Plan: Continue with maintenance dose of oral Lasix, continue antibiotics, final urine culture is pending, no significant cough or congestion, basilar crackles on today's exam, no wheezing. Follow-up chest x-rays pending, no fever or chills, and feeling better today, less short of breath. We'll continue to follow I performed a history & physical examination of the patient and discussed their management with my nurse practitioner, Becky Garcia. I reviewed the nurse practitioner's note and agree with the documented findings and plan of care. Lung sounds are positive for diffuse wheezes throughout the lung montoya. The findings and the impression was discussed with the patient. I attest to the documentation by the nurse practitioner. Time with Patient: Less than 30
[2019-03-16 17:08] LABS: Glucose,Whole Blood 261 mg/dL (75-99)
--- NOTE | 2019-03-16 18:32 | XR ---
EXAMINATION TYPE: XR chest 2V DATE OF EXAM: 03/16/2019 COMPARISON: 03/14/2019 HISTORY: Shortness of breath TECHNIQUE: Frontal and lateral views of the chest are obtained. FINDINGS: Cardiomediastinal silhouette is within normal limits, stable. No pulmonary vascular congestion. No fo louisa airspace opacity. Small bilateral pleural effusions are stable. No pneumothorax. Degenerative jocelyn nges of the thoracic spine. IMPRESSION: Stable small bilateral pleural effusions.
--- NOTE | 2019-03-16 20:01 | P.PN ---
Subjective Progress Note Date: 03/16/19 (delayed charting seen at 1300) Principal diagnosis: Shortness of breath Patient is a 79-year-old female who was recently and admitted and discharged home 03/07 after being treated for 2 bleeding AVM anemia and COPD exacerbation, recent DVT, COPD, diabetes and multiple other comorbid conditions who presented to the emergency department with shortness of breath. On arrival to the ER this hospital stay her vital signs within normal limits. Laboratory analysis showed an elevated white blood cell count at 16 which was felt to be secondary to her recent steroids. Hemoglobin was 10.1 which is up from prior discharge. Platelet count was 515 which was felt to be reactive, BNP was 467, and urinalysis was negative. She is given bronchodilators and steroids in the e mergency department. She was admitted for further monitoring. In the morning after admission she was found to be slightly hyperglycemic. She had been on insulin sliding scale and her long-acting insulin was adjusted. She was also has non-fixed dose insulin. She had already had significant improvement in her breathing. She had been discharged home on a steroid taper and had done well until steroid taper had stopped. She was also having increased urinary frequency without dysuria. Possible urinary tract infection. She was started on Augmentin secondary to possible bronchitis. Her white blood cell, initially responded well to treatment but then started increasing which was felt to be s econdary to steroids. She is also known to have thrombocytosis. Hemoglobin relatively stable throughout her hospital stay. Patient seen and examined at bedside. Patient reports continued urinary f requency. She states her breathing is better than when she came in and cough is nearly resolved. Still feeling fatigued and tired. Objective - Vital Signs Vital signs: Vital Signs Temp 98.2 F 03/16/19 15:00 Pulse 99 03/16/19 19:07 Resp 16 03/16/19 15:00 BP 156/70 03/16/19 15:00 Pulse Ox 95 03/16/19 04:57 Intake & Output 03/16/19 03/16/19 03/17/19 06:59 18:59 06:59 Weight 95 kg Other: Voiding Method Toilet Bedside Commode Bedside Commode # Voids 3 3 # Bowel Movements 0 - Exam General: non toxic, no distress, appears at stated age Derm: steven appearance to bilateral lower extremities with skin thickening, warm, dry Head: atraumatic, normocephalic, symmetric Eyes: EOMI, no lid lag, anicteric sclera Mouth: no lip lesion, mucus membranes moist Cardiovascular: S1S2 reg, no murmur, positive posterior tibial pulse bilateral, Lungs: Wheeze bilateral bases, no rhonchi, no rales , no accessory muscle use Abdominal: soft, nontender to palpation, no guarding, no appreciable organomegaly Ext: no gross muscle atrophy, 3+ edema, no contractures Neuro: CN II-XI grossly intact, no focal neuro deficits Psych: Alert, oriented, appropriate affect - Labs CBC & Chem 7: 03/16/19 07:37 03/16/19 07:37 Labs: Abnormal Lab Results - Last 24 Hours (Table) 03/15/19 03/16/19 03/16/19 Range/Units 20:40 02:21 06:56 WBC (3.8-10.6) k/uL Hgb (11.4-16.0) gm/dL Hct (34.0-46.0) % MCV (80.0-100.0) fL MCH (25.0-35.0) pg MCHC (31.0-37.0) g/dL RDW (11.5-15.5) % Plt Count (150-450) k/uL POC Glucose (mg/dL) 430 H 147 H 161 H (75-99) mg/dL 03/16/19 03/16/19 03/16/19 Range/Units 07:37 11:46 17:06 WBC 19.3 H (3.8-10.6) k/uL Hgb 8.8 L (11.4-16.0) gm/dL Hct 30.3 L (34.0-46.0) % MCV 77.4 L (80.0-100.0) fL MCH 22.5 L (25.0-35.0) pg MCHC 29.1 L (31.0-37.0) g/dL RDW 19.0 H (11.5-15.5) % Plt Count 562 H (150-450) k/uL POC Glucose (mg/dL) 126 H 261 H (75-99) mg/dL Microbiology - Last 24 Hours (Table) 03/14/19 19:19 Urine Culture - Preliminary Urine,Clean Catch Gram Neg Bacilli Gram Neg Bacilli#2 Assessment and Plan Assessment: Acute exacerbation of COPD, failed outpatient treatment with chronic hypoxic respiratory failure -Continue with oral steroids, bronchodilators, Augmentin -Pulmonary recommendations appreciated -Pulmonary hygiene Diabetes mellitus type 2 with hyperglycemia -Continue with Levemir slightly increased dose, sliding scale insulin, and fixed dose insulin -Follow blood sugars -Hemoglobin A1c 7.5 in August 2018 Recent GI bleed secondary to AVM -Continue with PPI -Follow CBC Acute blood loss anemia secondary to recent GI bleed with Fe deficiency anemia, thrombocytosis -Hemoglobin relatively stable - IV FE X 1 -Continue with ferrous sulfate -Monitor for signs of rebleeding Chronic lower extremity edema -No signs of CHF on last echo with preserved ejection fraction -Lasix PO Obesity with BMI 38.3 -Structured outpatient weight loss Recent DVT and pulmonary embolism -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
[2019-03-16 20:19] LABS: Glucose,Whole Blood 261 mg/dL (75-99)
[2019-03-16] MEDS: ATORVASTATIN 10 MG TAB PO SCH (21:09)
[2019-03-17] MEDS: LEVOTHYROXINE 112 MCG TAB PO SCH (06:26)
[2019-03-17 07:13] LABS: Glucose,Whole Blood 152 mg/dL (75-99)
[2019-03-17] MEDS: SYMBICORT 160-4.5 MCG INHALER INHALATION SCH (07:40)
[2019-03-17] MEDS: IPRATROPIUM-ALBUTEROL 3 ML NEB INHALATION PRN (07:40)
[2019-03-17] MEDS: INSULIN DETEMIR (LEVEMIR) 100 UNIT/ML SYR SQ SCH (07:57)
[2019-03-17] MEDS: INSULIN ASPART (NovoLOG) 100 UNIT/ML VIAL SQ SCH ×4 (07:58→12:44)
[2019-03-17] MEDS: PANTOPRAZOLE 40 MG TABLET PO SCH (08:02)
[2019-03-17] MEDS: LORATADINE 10 MG TAB PO SCH (08:02)
[2019-03-17] MEDS: DULoxetine HCL 60 MG CAPSULE.DR PO SCH (08:02)
[2019-03-17] MEDS: FUROSEMIDE 40 MG TAB PO SCH (08:02)
[2019-03-17] MEDS: AMOXIC-POT CLAV 875-125MG 1 EACH TAB PO SCH (08:02)
[2019-03-17] MEDS: APIXABAN 5 MG TAB PO SCH (08:02)
[2019-03-17] MEDS: FERROUS SULFATE 325 MG TAB PO SCH (08:02)
[2019-03-17] MEDS: predniSONE 20 MG TAB PO SCH (08:02)
[2019-03-17] MEDS: DILTIAZEM CD 120 MG CAP.ER.24H PO SCH (08:03)
[2019-03-17] MEDS: PREGABALIN 100 MG CAP PO SCH (08:03)
[2019-03-17] MEDS ORDERED: SODIUM FERRIC GLUCONAT-SUCROSE 125 MG in SODIUM CHLORIDE 0.9% 100 ML IVPB SCH (09:00)
[2019-03-17] MEDS: IPRATROPIUM-ALBUTEROL 3 ML NEB INHALATION SCH ×2 (10:54→15:43)
[2019-03-17 11:14] LABS: Hemoglobin A1C 6.8 % (4.0-6.0)
[2019-03-17 11:50] LABS: Glucose,Whole Blood 200 mg/dL (75-99)
--- NOTE | 2019-03-17 13:42 | P.PN ---
Subjective Progress Note Date: 03/17/19 Principal diagnosis: Dyspnea and cough This is a 79-year-old white female patient with recent history of pulmonary embolism and right femoral DVT, for which the patient was started on Eliquis, past medical history of COPD on home oxygen, chronic and ongoing history of smoking, diabetes mellitus, hypertension, hyperlipidemia, hypothyroidism, who presents to the hospital yesterday on 03/14/2019 for evaluation of worsening shortness of breath, frequent urination, some limited cough, and phlegm production. A rattly patient was not taking her Lasix and she was having worsening lower extremity edema. No chest pain, she did admit to chills, patient's last cigarette according to her was 4 days ago. She is on a combination of Breo-Ellipta, Ventolin and nebulized albuterol at home. Chest x- ray on 03/14/2019 showed mild congestive heart failure with mild blunting of the costophrenic angles, and mild infiltrate in the posterior lung bases. Labs showed a white blood cell count of 16.0, hemoglobin of 10.1, platelet count is 515, coagulation profile was within normal limits, electrolytes were within normal limits be on was 5 creatinine 0.45, troponin was negative, proBNP was 467, urinalysis showed some RBCs but negative for signs of infection. Urine culture is pending. Antibiotics were started, patient was given a dose of IV Lasix and her home dose of 40 of Lasix was resumed. Oral prednisone was started along with breathing treatments, and patient is seen on medical surgical floor, appears to be in no acute distress On 03/16/2019 patient is seen in follow-up on medical surgical floor. She sits up unaided to bed, she states she is feeling much better today, less short of breath, lung sounds reveal diminished breath sounds with few basilar crackles, no wheezing. Afebrile, she remains on 2 L of oxygen with a pulse ox of 95%, hemodynamically stable. She is on antibiotics, and her urine culture was positive for 2 gram-negative bacilli species, final culture is pending. Rattly on Augmentin for antibiotic coverage. No acute issues overnight. She remains on maintenance dose of oral Lasix. Follow-up chest x-rays pending today. On 03/17/2019 patient seen in follow-up on medical surgical floor, she continues to improve, vital signs are stable. No worsening dyspnea, follow-up chest x-ray yesterday showed stable small bilateral pleural effusions. No fever or chills, urine culture resulted for Proteus mirabilis and E. coli with susceptibility to Zosyn, patient is currently on Augmentin. Patient remains on oral dose of Lasix once daily, oral anticoagulants, oral prednisone, and breathing treatments. Feeling better, no acute events overnight, she is on 2 L of oxygen, her pulse ox 96%, no significant cough, lung sounds reveal diminished breath sounds bilaterally, no major wheezing or rhonchi Objective - Vital Signs Vital signs: Vital Signs Temp 98 F 03/17/19 04:45 Pulse 82 03/17/19 11:07 Resp 20 03/17/19 08:00 BP 156/66 03/17/19 04:45 Pulse Ox 96 03/17/19 04:45 Intake & Output 03/16/19 03/17/19 03/17/19 18:59 06:59 18:59 Intake Total 300 Balance 300 Weight 94.5 kg Intake: Oral 300 Other: Voiding Method Bedside Commode Bedside Commode Bedside Commode # Voids 3 1 2 - Exam GENERAL EXAM: Alert, pleasant, 79-year-old white female, a 2 is of oxygen with a pulse ox of 95%, comfortable in no apparent distress. HEAD: Normocephalic/atraumatic. EYES: Normal reaction of pupils, equal size. Conjunctiva pink, sclera white. NOSE: Clear with pink turbinates. THROAT: No erythema or exudates. NECK: No masses, no JVD, no thyroid enlargement, no adenopathy. CHEST: No chest wall deformity. Symmetrical expansion. LUNGS: Equal air entry with diminished air entry bilaterally, and basilar rales CVS: Regular rate and rhythm, normal S1 and S2, no gallops, no murmurs, no rubs ABDOMEN: Soft, nontender. No hepatosplenomegaly, normal bowel sounds, no guarding or rigidity. EXTREMITIES: No clubbing, 1+ lower extremity edema no cyanosis, 2+ pulses and upper and lower extremities. MUSCULOSKELETAL: Muscle strength and tone normal. SPINE: No scoliosis or deformity SKIN: No rashes CENTRAL NERVOUS SYSTEM: Alert and oriented -3. No focal deficits, tone is normal in all 4 extremities. PSYCHIATRIC: Alert and oriented -3. Appropriate affect. Intact judgment and insight. - Labs CBC & Chem 7: 03/16/19 07:37 03/16/19 07:37 Labs: Abnormal Lab Results - Last 24 Hours (Table) 03/16/19 03/16/19 03/16/19 Range/Units 07:37 17:06 20:08 POC Glucose (mg/dL) 261 H 261 H (75-99) mg/dL Hemoglobin A1c 6.8 H (4.0-6.0) % 03/17/19 03/17/19 Range/Units 07:12 11:47 POC Glucose (mg/dL) 152 H 200 H (75-99) mg/dL Hemoglobin A1c (4.0-6.0) % Microbiology - Last 24 Hours (Table) 03/14/19 19:19 Urine Culture - Final Urine,Clean Catch Proteus mirabilis Escherichia coli Assessment and Plan Plan: Assessment: #1. Acute exacerbation of chronic obstructive pulmonary disease #2. Fluid overload, possible exacerbation of congestive heart failure, previously patient was documented to have preserved LV function with EF of 55- 60%, mild MR, mild TR, no evidence of pulmonary hypertension. Chest x-ray showed evidence of mild congestive heart failure, wanting of the costophrenic angles, mild pulmonary congestion #3. Urinary tract infection, cultures positive for to gram-negative bacilli organisms, final cultures pending #4. Recent pulmonary embolism and lower extremity DVT, on Eliquis #5. Recent diagnosis of GI bleeding and AVMs #6. Advanced COPD with chronic hypoxic respiratory failure #7. Chronic and ongoing history of smoking #8. Hypertension #9. Diabetes mellitus type 2 #10. Hypothyroidism #11 Depression Plan: Follow-up chest x-ray showed small bilateral pleural effusions, stable, patient is breathing easier, no worsening dyspnea, she remains on 2 L of oxygen, there has been no fever or chills, no major wheezing or congestion, she remains on Augmentin for E. coli and Proteus mirabilis in the urine, hemodynamically stable, no acute issues overnight, from pulmonary perspective patient is stable, and could be considered for discharge home today. I performed a history & physical examination of the patient and discussed their management with my nurse practitioner, Becky Garcia. I reviewed the nurse practitioner's note and agree with the documented findings and plan of care. Lung sounds are positive for diffuse wheezes throughout the lung montoya. The findings and the impression was discussed with the patient. I attest to the documentation by the nurse practitioner. Time with Patient: Less than 30
[2019-03-17 15:06] LABS: Anisocytosis Slight; HCT 30.6 % (34.0-46.0); HGB 8.8 gm/dL (11.4-16.0); Hypochromasia Marked; MCH 22.6 pg (25.0-35.0); MCHC 28.7 g/dL (31.0-37.0); MCV 78.7 fL (80.0-100.0); Mean Platelet Volume 7.2; Microcytosis Slight; Platelet Count 486 k/uL (150-450); Poikilocytosis Moderate; RDW 18.6 % (11.5-15.5); WBC 13.8 k/uL (3.8-10.6)
[2019-03-17 15:11] VITALS: BP 141/62; RESP 18; TEMP 98.1
[2019-03-17 15:46] VITALS: PULSE 95
--- NOTE | 2019-03-17 21:25 | P.DS ---
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 On arrival to the ER this hospital stay her vital signs within normal limits. Laboratory analysis showed an elevated white blood cell count at 16 which was felt to be secondary to her recent steroids. Hemoglobin was 10.1 which is up from prior discharge. Platelet count was 515 which was felt to be reactive, BNP was 467, and urinalysis was negative. She is given bronchodilators and steroids in the emergency department. She was admitted for further monitoring. In the morning after admission she was found to be slightly hyperglycemic. She had been on i nsulin sliding scale and her long-acting insulin was adjusted. She was also was sstarted on fixed dose insulin. She had already had significant improvement in her breathing. She had been discharged home on a steroid course and had done well until steroid course had stopped. She was also having increased urinary frequency without dysuria. Possible urinary tract infection was identified and she was started on ABX. Urienu culture came back as E Coli and Proteous UTI and she will complete a course of cephalosporins. Her white blood cell, initially responded well to treatment but then started increasing which was felt to be secondary to steroids. She is also known to have thrombocytosis. Hemoglobin relatively stable throughout her hospital stay. She was gicen 1 dose of IV iron and continued on her oral iron. Breathing had returned to baseline and she was determined stable for discharge home. She will complete a prolonged steroid taper, follow up with pulm in 1 week, and follow up with her PCP and GI. Patient seen and examined at bedside. Feeling better, slightly tired, no nausea, no vomiting. Vital signs reviewed and stable. General: non toxic, no distress, appears at stated age, Obese Derm: warm, dry Head: atraumatic, normocephalic, symmetric Eyes: EOMI, no lid lag, anicteric sclera Mouth: no lip lesion, mucus membranes moist Cardiovascular: S1S2 reg, no murmur, positive posterior tibial pulse bilateral, Lungs: Decrese bs bilateral, no rhonchi, no rales , no accessory muscle use Abdominal: soft, nontender to palpation, no guarding, no appreciable organomegaly Ext: no gross muscle atrophy, no edema, no contractures Neuro: CN II-XI grossly intact, no focal neuro deficits Psych: Alert, oriented, appropriate affect A total of 35 minutes of time were spent preparing this complex discharge summary . Patient Condition at Discharge: Fair Plan - Discharge Summary Discharge Rx Participant: No New Discharge Prescriptions: New Cefpodoxime Proxetil [Vantin] 200 mg PO Q12HR #10 tab predniSONE [Deltasone] 20 mg PO DIRECTED #30 tablet Continue Levothyroxine Sodium [Synthroid] 112 mcg PO DAILY Omeprazole 20 mg PO DAILY Simvastatin [Zocor] 20 mg PO HS Insulin Degludec [Tresiba] 18 units SQ HS Albuterol Sulfate [Proair Hfa] 2 puff INHALATION RT-QID PRN PRN Reason: Shortness Of Breath Pregabalin [Lyrica] 100 mg PO BID Insulin Degludec [Tresiba] 38 units SQ QAM Diltiazem HCl [Diltiazem 24Hr ER] 120 mg PO DAILY DULoxetine HCL [Cymbalta] 60 mg PO DAILY Albuterol Nebulized [Ventolin Nebulized] 2.5 mg INHALATION RT-QID PRN PRN Reason: Shortness Of Breath Insulin Lispro [humaLOG Kwikpen] 6 unit SQ AC-TID Apixaban [Eliquis] 5 mg PO BID 37 Days #88 tab Budesonide-Formot 160-4.5 Mcg [Symbicort 160-4.5 Mcg Inhaler] 2 puff INHALATION RT-BID Fluticasone/Vilanterol [Breo Ellipta 200-25 Mcg INH] 1 puff INHALATION RT- DAILY Furosemide [Lasix] 40 mg PO DAILY Fexofenadine HCl [Jennifer Allergy] 180 mg PO DAILY Ferrous Sulfate [Iron (65 MG Elemental)] 325 mg PO BID Discharge Medication List Levothyroxine Sodium [Synthroid] 112 mcg PO DAILY 10/26/15 [History] Omeprazole 20 mg PO DAILY 10/26/15 [History] Simvastatin [Zocor] 20 mg PO HS 10/26/15 [History] Albuterol Sulfate [Proair Hfa] 2 puff INHALATION RT-QID PRN 09/03/18 [History] DULoxetine HCL [Cymbalta] 60 mg PO DAILY 09/03/18 [History] Diltiazem HCl [Diltiazem 24Hr ER] 120 mg PO DAILY 09/03/18 [History] Insulin Degludec [Tresiba] 18 units SQ HS 09/03/18 [History] Insulin Degludec [Tresiba] 38 units SQ QAM 09/03/18 [History] Pregabalin [Lyrica] 100 mg PO BID 09/03/18 [History] Albuterol Nebulized [Ventolin Nebulized] 2.5 mg INHALATION RT-QID PRN 01/05/19 [History] Insulin Lispro [humaLOG Kwikpen] 6 unit SQ AC-TID 01/05/19 [History] Apixaban [Eliquis] 5 mg PO BID 37 Days #88 tab 01/09/19 [Rx] Budesonide-Formot 160-4.5 Mcg [Symbicort 160-4.5 Mcg Inhaler] 2 puff INHALATION RT-BID 03/02/19 [History] Fluticasone/Vilanterol [Breo Ellipta 200-25 Mcg INH] 1 puff INHALATION RT-DAILY 03/02/19 [History] Ferrous Sulfate [Iron (65 MG Elemental)] 325 mg PO BID 03/14/19 [History] Fexofenadine HCl [Jennifer Allergy] 180 mg PO DAILY 03/14/19 [History] Furosemide [Lasix] 40 mg PO DAILY 03/14/19 [History] Cefpodoxime Proxetil [Vantin] 200 mg PO Q12HR #10 tab 03/17/19 [Rx] predniSONE [Deltasone] 20 mg PO DIRECTED #30 tablet 03/17/19 [Rx] Follow up Appointment(s)/Referral(s): Kai Chen DO [Primary Care Provider] - 03/24/19 1:15 pm Lina Aldana NPC [Nurse Practitioner] - 04/10/19 2:00 pm Nahum Longo MD [STAFF PHYSICIAN] - 03/21/19 3:15 pm Patient Instructions/Handouts: COPD (Chronic Obstructive Pulmonary Disease) (DC), Anemia (DC) Activity/Diet/Wound Care/Special Instructions: Activity: as tolerated Diet: carb consistent Discharge Disposition: HOME SELF-CARE
--- NOTE | 2019-03-21 11:58 | CDI ---
Documentation Clarification Form Date: 03/21/19 From: Misti Zee Phone: If you have a question about this query, please contact Maria Dolores Diaz, Sports Management Professor at [phone] between 8am and 5pm. Admit Date: 03/14/19 Discharge Date:03/17/19 Patient Name: Ashley Juarez Visit Number: [id number] ATTENTION: The Clinical Documentation Specialists (CDI) and [facility] Coding Staff appreciate your assistance in clarifying documentation. Please respond to the clarification below the line at the bottom and electronically sign. The CDI & [facility] Coding staff will review the response and follow-up if needed. Please note: Queries are made part of the Legal Health Record. If you have any questions, please contact the author of this message via ITS. Dear Dr. Giana Burnham CHF is documented in the ED note. Dr. Aaron documented fluid overload, possible exacerbation of congestive heart failure, previously patient was documented to have preserved LV function with EF of 55 - 60% in his consult note and progress ntoes. History/Risk Factors: hypertension, mild mitral and tricuspid regurgitation Clinical Indicators: fluid overload VS/Pulse OX: T. 98.0, P. 88, R. 20, BP 146/72, Puls Ox. 97% on RA BNP: 467 Echocardiogram Results: Not done during this admission see above Chest X Ray: 03/14 - mild congestive heart failure is improved compared to last exam. 03/16 - stable small bilateral pleural effusions Treatment: IV Lasix 20 mg once on 03/15, PO lasix 20 mg once on 03/15 and 40 mg twice on 03/16 In your professional opinion, can you please clarify the acuity and type of CHF if known? Systolic Heart Failure: Acute Chronic Acute on Chronic Diastolic Heart Failure: Acute Chronic Acute on Chronic Systolic & Diastolic Heart Failure: Acute Chronic Acute on Chronic Heart Failure Unable to Determine Other, please specify Chronic diastolic CHF MTDD
== END 2019-03-17 17:34 | disposition home or self-care (01) | DRG 190 ==
LOC: EC 18:31 → 3NMEDONC 20:45 → 4MS4W 22:14
PROVIDERS: ADMIT Internal Medicine; ATTEND Internal Medicine
DX: J44.1 Chronic obstructive pulmonary disease with (acute) exacerbation (principal); I50.33 Acute on chronic diastolic (congestive) heart failure; D62 Acute posthemorrhagic anemia; J96.11 Chronic respiratory failure with hypoxia; N39.0 Urinary tract infection, site not specified; I50.32 Chronic diastolic (congestive) heart failure; B96.20 Unspecified Escherichia coli [E. coli] as the cause of diseases classified elsewhere; E03.9 Hypothyroidism, unspecified; E11.65 Type 2 diabetes mellitus with hyperglycemia; E66.9 Obesity, unspecified; E78.5 Hyperlipidemia, unspecified; F17.210 Nicotine dependence, cigarettes, uncomplicated; F32.9 Major depressive disorder, single episode, unspecified; G43.909 Migraine, unspecified, not intractable, without status migrainosus; I83.90 Asymptomatic varicose veins of unspecified lower extremity; K21.9 Gastro-esophageal reflux disease without esophagitis; M79.7 Fibromyalgia; T38.0X5A Adverse effect of glucocorticoids and synthetic analogues, initial encounter; D72.829 Elevated white blood cell count, unspecified; I11.0 Hypertensive heart disease with heart failure; I08.1 Rheumatic disorders of both mitral and tricuspid valves; R35.0 Frequency of micturition; B96.4 Proteus (mirabilis) (morganii) as the cause of diseases classified elsewhere; Z68.38 Body mass index [BMI] 38.0-38.9, adult; Z79.01 Long term (current) use of anticoagulants; Z79.4 Long term (current) use of insulin; Z79.51 Long term (current) use of inhaled steroids; Z79.52 Long term (current) use of systemic steroids; Z79.890 Hormone replacement therapy; Z79.899 Other long term (current) drug therapy; Z86.711 Personal history of pulmonary embolism; Z86.718 Personal history of other venous thrombosis and embolism; Z87.19 Personal history of other diseases of the digestive system; Z96.653 Presence of artificial knee joint, bilateral; Z99.81 Dependence on supplemental oxygen; Z98.51 Tubal ligation status; Z98.42 Cataract extraction status, left eye; Z98.41 Cataract extraction status, right eye; Z96.1 Presence of intraocular lens
CPT/HCPCS: 36415; 71046; 80048; 80053; 81001; 83036; 83735; 83880; 84484; 85025; 85027; 85610; 85730; 87077; 87086; 87186; 93005; 94640; 94760; 96365; 96375; 99285